=== PATIENT | female | born 1930 | race Caucasian/White ===

== ENCOUNTER → 2017-01-04 | Outpatient (CLI) | payer OTHER, BC ==
--- NOTE | 2017-01-04 14:36 | MAMMOGRAPHY REPORT ---
BILATERAL DIGITAL SCREENING MAMMOGRAM WITH CAD: 01/04/2017 CLINICAL HISTORY: Routine screening. Patient has no complaints. TECHNIQUE: Current study was also evaluated with a Computer Aided Detection (CAD) system. Bilatera l CC and MLO views were obtained. COMPARISON: Comparison is made to exams dated: 01/04/2016 mammogram, 12/26/2014 mammogram, 10/10/2013 mammogram, 10/09/2012 mammogram, 10/07/2011 mammogram, and 10/05/2009 mammogram - [facility]. BREAST COMPOSITION: There are scattered areas of fibroglandular density in both breasts. FINDINGS: No suspicious masses, calcifications, or areas of architectural distortion are noted in e ither breast. There has been no significant interval change compared to prior exams. Bilateral arabella gn-appearing calcifications are not significantly changed. IMPRESSION: ACR BI-RADS CATEGORY 2: BENIGN There is no mammographic evidence of malignancy. A 1 year screening mammogram is recommended. The p atient will receive written notification of the results. Approximately 10% of breast cancers are not detected with mammography. A negative mammographic repor t should not delay biopsy if a clinically suggestive mass is present. Rozina Kang M.D. /:01/04/2017 11:12:03 Orchid Grower: Belen Willingham, [facility] letter sent: Normal 1/2 BI-RADS Code: ACR BI-RADS Category 2: Benign
== END | disposition home or self-care (01) ==
LOC: C.MAMM 10:54
PROVIDERS: ATTEND Family Medicine
DX: Z12.31 Encounter for screening mammogram for malignant neoplasm of breast (principal)

== ENCOUNTER → 2018-01-08 | Outpatient (CLI) | payer OTHER, BC ==
--- NOTE | 2018-01-09 12:47 | MAMMOGRAPHY REPORT ---
BILATERAL DIGITAL SCREENING MAMMOGRAM TOMOSYNTHESIS WITH CAD: 01/08/2018 CLINICAL HISTORY: Routine screening. Patient has no complaints. TECHNIQUE: Breast tomosynthesis in addition to standard 2D mammography was performed. Current study was also evaluated with a Computer Aided Detection (CAD) system. COMPARISON: Comparison is made to exams dated: 01/04/2017 mammogram, 01/04/2016 mammogram, 12/26/2014 m ammogram, 10/10/2013 mammogram, 10/09/2012 mammogram, and 10/07/2011 mammogram - [facility]. BREAST COMPOSITION: There are scattered areas of fibroglandular density in both breasts. FINDINGS: There are minimal vascular calcifications in the breasts. No suspicious mass, architectura l distortion or cluster of microcalcifications is seen. IMPRESSION: ACR BI-RADS CATEGORY 1: NEGATIVE There is no mammographic evidence of malignancy. A 1 year screening mammogram is recommended. The pa tient will receive written notification of the results. Approximately 10% of breast cancers are not detected with mammography. A negative mammographic report should not delay biopsy if a clinically suggestive mass is present. Naty Peres M.D. ay/:01/08/2018 15:05:19 Scheduling Clerk: Aniyah MARKHAM(R)(M), [facility] letter sent: Normal 1/2 BI-RADS Code: ACR BI-RADS Category 1: Negative
== END | disposition home or self-care (01) ==
LOC: C.MAMM 10:29
PROVIDERS: ATTEND Family Medicine
DX: Z12.31 Encounter for screening mammogram for malignant neoplasm of breast (principal)

== ENCOUNTER 2020-05-03 12:30 | Inpatient (IN) ==
--- NOTE | 2020-05-03 12:51 | Emergency Department Note ---
Impression & Plan Fall, Confusion ED Provider Note Provider: Ivan Cabrera MD DATE OF SERVICE: 05/03/2020 CHIEF COMPLAINT: Fall, change in mental status HISTORY OF PRESENT ILLNESS: Patient is a 89-year-old female with a past medical history of COPD, PE, SVT, hyperlipidemia, pneumonia, restrictive lung disease presenting here today via ambulance after a fall. Patient evidently lives by her self and always is a little bit forgetful. According to EMS patient was found by her family today on the floor and seemed less aware and more confused than normal. Patient herself does not remember falling. EMS states they did find breakfast mates evidently was this morning. Patient denies pain at this time. Patient again does not remember and is unsure if she had loss of consciousness. She denies shortness of breath at this time or significant pain in the extremities. Denies nausea or abdominal discomfort. Patient not currently on anticoagulation per her report. Patient does not know what month or year it is at this time. Patient is quite pleasant and follows commands otherwise. She denies feeling drowsy. History of tachycardic in past. REVIEW OF SYSTEMS: A total of 10 review of systems was obtained and negative except as stated above in the HPI. PAST MEDICAL HISTORY: As noted above MEDICATIONS: Reviewed home medication list SOCIAL HISTORY: Lives at home by herself, retired, distant former smoker PHYSICAL EXAM: GENERAL: alert in no acute distress on stretcher Head: normocephalic and atraumatic EYES: No injection, discharge or icterus. PERRL NECK: Trachea midline. Supple. ENT: Mucous membranes pink and moist. LUNGS: Airway patent. No retractions. Breath sounds clear HEART: Regular tachycardic rate and rhythm. No chest wall tenderness ABDOMEN: Soft and non-tender, without guarding or rebound. Pelvis is stable SKIN: Acyanotic, warm, dry. EXTREMITIES: Without swelling or tenderness. Patient does have chronic lower extremity venous stasis changes. No significant edema. NEUROLOGICAL: No focal deficits. No aphasia. No facial droop or slurred speech. Patient does not know what year it is states is 1980 and states it is February when it is actually April. EK bpm normal sinus rhythm. No PVCs or PACs. No ST segment elevation or depression. CONTINUOUS CARDIAC MONITORING: was ordered and showed a heart rate of 102 bpm in sinus tachycardia Patient's hypertension was referred to the hospitalist GCS 14, mild confusion regarding events and current time HOSPITAL COURSE: 1236 Patient was first seen and H&P performed. 1320 Discussed with patient's daughter who is now at bedside. 1518 Patient reassessed and updated. Patient and daughter in agreement for obs ervation in hospital. Patient's laboratory studies and imaging reviewed. Differential includes Infection, dehydration, metabolic abnormality, hypo/hyperglycemia, electrolyte disturbance, anemia, hypoxia, cardiac sources, intracerebral event, toxicologic, neurologic, as well as other pathologies. IMPRESSION/MEDICAL DECISION MAKING: Patient presents after fall without recollection. CT encircles phonically without acute intracranial traumatic findings. Patient denies significant pain complaint at this time. Appears hemodynamically stable though somewhat hypertensive. Not hypoxic. Basic labs were obtained without evidence of leukocytosis or anemia. No significant lecture light abnormality or signs of renal dysfunction. Troponin is negative TSH within normal limits. I doubt acute ACS or PE at this time. I doubt dissection. Patient has no clinical evidence indicative of a hip fracture or significant injury to the extremities requiring additional imaging. Patient's daughter is present to and states that she seems more confused at this time. They have been having more caregivers come to the house to try to help with the patient still at this time does live on her own. Did have a recent positive urine culture in outpatient setting is completed 4 days of amoxicillin. UA pending here -- later negative for infection. Missed am metoprolol, this was given. Given that she lives at home and seems too confused at this time to go home by herself, plan for further observation here in hospital. DIAGNOSIS: Fall, confusion DISPOSITION: Hospitalist will evaluate Patient was agreeable with this plan. Past Med/Surg History Medical History (Updated 05/03/20 @ 16:17 by Dirk Kraft MD) Colon cancer Dependence on nocturnal oxygen therapy History of colon cancer History of tobacco abuse quit in 97, 50 pack year hx. HLD (hyperlipidemia) Hypothyroidism Osteoporosis Restrictive lung disease Surgical History H/O hernia repair x 2 History of cataract extraction History of left hemicolectomy 02/04/05 due to Colon CA History of tonsillectomy and adenoidectomy Family History (Updated 06/17/18 @ 18:24 by Leatha Johnson PA-C) Father , age 78 Lymphoma Mother , age 89 Myocardial infarction Coronary heart disease Stroke Dementia Brother , age 52 Suicide Grandfather Coronary heart disease Grandmother Coronary heart disease Social History (Updated 06/17/18 @ 18:26 by Leatha Johnson PA-C) Smoking Status: Former smoker Cigarettes Per Day: 50 pack yr history; Second Hand Exposure: No; Hx Alcohol Use: No Hx Substance Use: No Preferred Language: Bolivian Communication Ability: Effective Tractor Trailer Technician Required: No Beliefs That Will Affect Care: Voodoo Voodoo Beliefs: Restorationist Current Living Situation: Alone Current Living Situation Comment: Condo w/daytime caregivers current occupational status: retired 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 [employer] Feels Safe at Home: Yes Safety Concerns: Feels Safe At This Time Allergies Allergies Allergy/AdvReac Type Severity Reaction Status Date / Time pravastatin Allergy Unknown muscle Verified 05/03/20 13:53 aches zolpidem AdvReac Unknown psychotic Verified 05/03/20 13:53 response Home Meds Home Medications Medication Instructions Recorded Confirmed calcium carbonate-vitamin D3 2 tab PO DAILY 06/17/18 05/03/20 [Calcium 600 + D(3)] fluoxetine 40 mg PO DAILY 06/17/18 05/03/20 levothyroxine 100 mcg PO DAILY 06/17/18 05/03/20 minocycline 100 mg PO UD 06/17/18 05/03/20 metoprolol succinate 12.5 mg PO DAILY 11/20/18 05/03/20 amoxicillin 500 mg PO TID 05/03/20 05/03/20 bupropion HCl 150 mg PO DAILY 05/03/20 05/03/20 metronidazole 1 applic TOPICAL BID 05/03/20 05/03/20 Results & Data (ED) Vital Signs Vital Signs - 24 hr 05/03/20 12:24 05/03/20 12:39 05/03/20 12:46 Temperature 37.1 C Temperature Source Oral Pulse Rate 98 H 100 H Pulse Rate [Left] Pulse Rate from SpO2 Sensor 100 H Respiratory Rate 18 17 Respiratory Effort / Characteristics Non-Labored Spontaneous Respiratory Depth Normal Respiratory Pattern Regular Blood Pressure 163/99 H 163/99 H Blood Pressure [Right Arm] Blood Pressure Mean 120 134 Blood Pressure Mean [Right Arm] Blood Pressure Position Lying Blood Pressure Position [Right Arm] Pulse Oximetry 95 96 95 Oxygen Delivery Method Room Air Room Air Sepsis Recent Fever Within 48 Hours No Sepsis New/Unexplained Change in Mental Status Yes Sepsis Action Taken by Nursing No Action Required 05/03/20 13:00 05/03/20 13:23 05/03/20 13:24 Temperature Temperature Source Pulse Rate 102 H 98 H Pulse Rate [Left] 100 H Pulse Rate from SpO2 Sensor 102 H Respiratory Rate 19 20 21 Respiratory Effort / Characteristics Non-Labored Spontaneous Respiratory Depth Respiratory Pattern Blood Pressure 148/117 H 178/99 H Blood Pressure [Right Arm] 178/99 H Blood Pressure Mean 122 120 Blood Pressure Mean [Right Arm] 125 Blood Pressure Position Blood Pressure Position [Right Arm] Lying Pulse Oximetry 97 94 97 Oxygen Delivery Method Room Air Sepsis Recent Fever Within 48 Hours Sepsis New/Unexplained Change in Mental Status Sepsis Action Taken by Nursing 05/03/20 13:30 05/03/20 14:00 05/03/20 14:01 Temperature Temperature Source Pulse Rate 100 H 99 H 100 H Pulse Rate [Left] Pulse Rate from SpO2 Sensor Respiratory Rate 18 19 23 Respiratory Effort / Characteristics Respiratory Depth Respiratory Pattern Blood Pressure 178/109 H 142/128 H Blood Pressure [Right Arm] Blood Pressure Mean 118 136 Blood Pressure Mean [Right Arm] Blood Pressure Position Blood Pressure Position [Right Arm] Pulse Oximetry 95 Oxygen Delivery Method Sepsis Recent Fever Within 48 Hours Sepsis New/Unexplained Change in Mental Status Sepsis Action Taken by Nursing 05/03/20 14:30 05/03/20 14:45 05/03/20 15:00 Temperature Temperature Source Pulse Rate 102 H 101 H 102 H Pulse Rate [Left] Pulse Rate from SpO2 Sensor Respiratory Rate 25 H 23 20 Respiratory Effort / Characteristics Respiratory Depth Respiratory Pattern Blood Pressure 170/126 H 150/116 H Blood Pressure [Right Arm] Blood Pressure Mean 145 128 Blood Pressure Mean [Right Arm] Blood Pressure Position Blood Pressure Position [Right Arm] Pulse Oximetry 97 96 97 Oxygen Delivery Method Sepsis Recent Fever Within 48 Hours Sepsis New/Unexplained Change in Mental Status Sepsis Action Taken by Nursing 05/03/20 15:01 05/03/20 15:21 05/03/20 15:31 Temperature Temperature Source Pulse Rate 108 H 102 H 101 H Pulse Rate [Left] Pulse Rate from SpO2 Sensor Respiratory Rate 17 21 34 H Respiratory Effort / Characteristics Respiratory Depth Respiratory Pattern Blood Pressure 210/107 H 210/107 H 167/85 H Blood Pressure [Right Arm] Blood Pressure Mean 141 141 98 Blood Pressure Mean [Right Arm] Blood Pressure Position Blood Pressure Position [Right Arm] Pulse Oximetry 95 Oxygen Delivery Method Room Air Sepsis Recent Fever Within 48 Hours Sepsis New/Unexplained Change in Mental Status Sepsis Action Taken by Nursing Laboratory Data Result diagrams: 05/03/20 12:45 05/03/20 12:45 Lab Results 05/03/20 05/03/20 05/03/20 Range/Units 12:45 12:45 12:45 WBC 8.36 (4.8-10.8) K/uL RBC 5.23 (4.2-5.4) M/uL Hgb 14.6 (12.0-16.0) g/dL Hct 44.2 (37-47) % MCV 84.5 (80-100) fL MCH 27.9 (25-34) pg MCHC 33.0 (32-36) g/dL RDW Std Deviation 44.1 (36.4-46.3) fL RDW Coeff of [place] 14.1 (11.5-14.5) % Plt Count 219 (130-400) K/uL MPV 11.1 H (7.4-10.4) fL Immature Gran % (Auto) 0.7 % Neut % (Auto) 84.5 % Lymph % (Auto) 6.9 % Mchenry % (Auto) 5.9 % Eos % (Auto) 1.8 % Baso % (Auto) 0.2 % Neut # (Auto) 7.06 H (1.4-6.5) K/uL Lymph # (Auto) 0.58 L (1.2-3.4) K/uL Mchenry # (Auto) 0.49 (0.11-0.59) K/uL Eos # (Auto) 0.15 (0-0.5) K/uL Baso # (Auto) 0.02 (0-0.2) K/uL Immature Gran # (Auto) 0.06 H (0.00-0.02) K/uL PT 10.9 (9.0-12.0) Seconds INR 1.0 (0.9-1.1) Sodium 137 (136-145) mmol/L Potassium 3.9 (3.5-5.1) mmol/L Chloride 104 (98-107) mmol/L Carbon Dioxide 24 (21-32) mmol/L Anion Gap 9.0 (3-11) BUN 11 (7-18) mg/dl Creatinine 0.91 (0.6-1.2) mg/dl Est Cr Clr Drug Dosing 41.1 ml/min Est GFR ( Amer) 65.3 Est GFR (Non-Af Amer) 56.3 BUN/Creatinine Ratio 12.2 (10-20) Glucose 66 L (70-99) mg/dl Calcium 8.8 (8.5-10.1) mg/dl Magnesium 2.1 (1.8-2.4) mg/dl Total Bilirubin 0.7 (0.2-1) mg/dl AST 22 (15-37) U/L ALT 17 (12-78) U/L Alkaline Phosphatase 78 (45-117) U/L Total Creatine Kinase 73 (26-192) U/L Troponin I < 0.015 (0-0.045) ng/ml Total Protein 6.6 (6.4-8.2) gm/dl Albumin 3.4 (3.4-5.0) gm/dl Globulin 3.2 (2.5-4.0) gm/dl Albumin/Globulin Ratio 1.1 (0.9-2) TSH 2.470 (0.300-4.500) uIu/ml Administered Medications Dextrose/Sodium Chloride (D5w And 1/2nss) 1,000 mls @ 80 mls/hr IV .[id number] [facility] Stop: 05/05/20 07:29 Last Admin: 05/03/20 18:15 Dose: 80 mls/hr Documented by: [id number] Metoprolol Succinate (Metoprolol Succ 25mg Ext Rel Tab) 25 mg PO DAILY [facility] Stop: 06/02/20 18:29 Last Admin: 05/03/20 18:15 Dose: 25 mg Documented by: [id number] Discontinued Medications Clonidine HCl (Clonidine Hcl 0.1 Mg Tab) 0.1 mg PO NOW ONE Stop: 05/03/20 15:52 Last Admin: 05/03/20 18:05 Dose: Not Given Documented by: [id number] Metoprolol Succinate (Metoprolol Succ 50mg Ext Rel Tab) 12.5 mg PO NOW STA Stop: 05/03/20 15:26 Last Admin: 05/03/20 15:56 Dose: 12.5 mg Documented by: [id number] Metoprolol Succinate (Metoprolol Succ 25mg Ext Rel Tab) 25 mg PO NOW STA Stop: 05/03/20 16:03 Last Admin: 05/03/20 18:10 Dose: Not Given Documented by: [id number] Nitroglycerin (Nitroglycerin 2% Ointment 30gm Tube) 0.5 inch EXT NOW STA Stop: 05/03/20 15:54 Last Admin: 05/03/20 18:09 Dose: Not Given Documented by: [id number] Discharge Plan Visit Data Chief Complaint: Fall Stated Complaint: Falls, Increase in altered mental status ED Provider: Ivan Cabrera Discharge Problem: Fall, Confusion Patient Disposition: Admitted As Inpatient Discharge Instructions Interventions: ED Discharge Assessment Last Done: 05/03/20 17:25 Discharge Problem: Fall Qualifiers: Encounter type: initial encounter Qualified Code(s): W19.XXXA - Unspecified fall, initial encounter
[2020-05-03 13:03] LABS: Basophils # (auto) 0.02 K/uL (0-0.2); Basophils % (auto) 0.2 %; Eosinophils # (auto) 0.15 K/uL (0-0.5); Eosinophils % (auto) 1.8 %; Hematocrit (blood only) 44.2 % (37-47); Hemoglobin 14.6 g/dL (12.0-16.0); Immature Granulocytes # (auto) 0.06 K/uL (0.00-0.02); Immature Granulocytes % (auto) 0.7 %; Lymphocytes # (auto) 0.58 K/uL (1.2-3.4); Lymphocytes % (auto) 6.9 %; Mean Corpuscular Hemoglobin 27.9 pg (25-34); Mean Corpuscular Volume 84.5 fL (80-100); Mean Platelet Volume 11.1 fL (7.4-10.4); Monocytes # (auto) 0.49 K/uL (0.11-0.59); Monocytes % (auto) 5.9 %; Neutrophils # (auto) 7.06 K/uL (1.4-6.5); Neutrophils % (auto) 84.5 %; Platelet Count 219 K/uL (130-400); RDW Coefficient of Variation 14.1 % (11.5-14.5); RDW Standard Deviation 44.1 fL (36.4-46.3); Red Blood Count 5.23 M/uL (4.2-5.4); White Blood Count 8.36 K/uL (4.8-10.8)
[2020-05-03 13:11] LABS: Prothrombin Time 10.9 Seconds (9.0-12.0)
[2020-05-03 13:24] LABS: Alanine Aminotransferase 17 U/L (12-78); Albumin Level 3.4 gm/dl (3.4-5.0); Aspartate Aminotransferase 22 U/L (15-37); BUN Creatinine Ratio 12.2 (10-20); Blood Urea Nitrogen 11 mg/dl (7-18); Calcium 8.8 mg/dl (8.5-10.1); Carbon Dioxide 24 mmol/L (21-32); Chloride 104 mmol/L (98-107); Creatinine Clr Calc Pharmacy 41.1 ml/min; Est GFR (African American) 65.3; Est GFR (Non-African American) 56.3; Glucose 66 mg/dl (70-99); Magnesium 2.1 mg/dl (1.8-2.4); Potassium 3.9 mmol/L (3.5-5.1); Sodium 137 mmol/L (136-145)
--- NOTE | 2020-05-03 13:24 | CT Scan Report ---
CT OF THE HEAD WITHOUT CONTRAST CLINICAL HISTORY: fall, ams COMPARISON STUDY: Head CT June 17, 2018. TECHNIQUE: Helical axial images of the head were obtained without IV contrast. Automated exposure con trol was utilized for the study. A dose lowering technique was utilized adhering to the principles o f ALARA. FINDINGS: No acute intracranial hemorrhage, midline shift or mass effect is present. The ventricular system is unremarkable. The basilar cisterns are patent. No extra-axial collections are present. Exte nsive white matter hypodensity suggests small vessel disease. There are no findings to suggest acute dural sinus thrombosis or acute territorial infarct. No significant calvarial abnormalities are prese nt. Visualized portions of the sinuses and mastoid air cells are clear. Suspected old right nasal bon e fracture is partially imaged. IMPRESSION: 1. No acute intracranial findings. 2. No calvarial fracture. ACT 112: Negative or not required by law. Electronically signed by: Yevgeniy Murillo M.D. 05/03/2020 1:23 PM
--- NOTE | 2020-05-03 13:29 | CT Scan Report ---
CT OF THE CERVICAL SPINE WITHOUT CONTRAST CLINICAL HISTORY: fall COMPARISON STUDY: Cervical spine CT June 17, 2018. TECHNIQUE: Helical axial images of the cervical spine were obtained without IV contrast. Sagittal a nd coronal reconstructions were viewed. Automated exposure control was utilized for the study. A do se lowering technique was utilized adhering to the principles of ALARA. FINDINGS: Reversal of the normal cervical lordosis is unchanged since prior CT of June 17, 2018. Ve rtebral body heights are maintained. No acute cervical spine fracture or subluxation is present. Ther e is no prevertebral edema. Facet joints are intact. Severe facet arthrosis is noted. There is moder ate to severe multilevel disc space narrowing with osteophytosis within the cervical spine. IMPRESSION: No acute cervical spine fracture or subluxation. ACT 112: Negative or not required by law. Electronically signed by: Yevgeniy Murillo M.D. 05/03/2020 1:28 PM
[2020-05-03 13:30] LABS: Albumin Globulin Ratio 1.1 (0.9-2); Alkaline Phosphatase 78 U/L (45-117); Bilirubin,Total 0.7 mg/dl (0.2-1); Creatine Kinase 73 U/L (26-192); Globulin 3.2 gm/dl (2.5-4.0); Total Protein 6.6 gm/dl (6.4-8.2); Troponin I < 0.015 ng/ml (0-0.045)
--- NOTE | 2020-05-03 14:02 | XRay Report ---
XR chest 1V portable CLINICAL HISTORY: fall COMPARISON STUDY: Chest radiograph June 25, 2018. Chest CT September 26, 2018. FINDINGS: There is no pneumothorax or pleural effusion. There is no evidence for pulmonary edema. Not e is made of bibasilar opacities. Mild cardiomegaly is unchanged. I IMPRESSION: 1. No pneumothorax. 2. Bibasilar opacities which favor atelectasis although an infectious process could appear similar. 3. Mild cardiomegaly without evidence for pulmonary edema. ACT 112: Negative or not required by law. Electronically signed by: Yevgeniy Murillo M.D. 05/03/2020 2:01 PM
[2020-05-03] MEDS ORDERED: METOPROLOL SUCC 50MG EXT REL TAB PO STA (15:25)
[2020-05-03] MEDS ORDERED: cloNIDine HCL 0.1 MG TAB PO ONE (15:51)
[2020-05-03] MEDS ORDERED: NITROGLYCERIN 2% OINTMENT 30GM TUBE EXT STA (15:53)
[2020-05-03] MEDS ORDERED: METOPROLOL SUCC 25MG EXT REL TAB PO STA (16:02)
--- NOTE | 2020-05-03 16:21 | History & Physical Report ---
Date of Service May 03, 2020 Assessment & Plan (1) Acute confusion: Has been diagnosed with cognitive impairment/dementia since February of this year Noted to be acutely confused since this morning Has been getting amoxicillin for recent UTI Confusion could be secondary to ongoing dementia/dehydration with fall/infection likely partially treated UTI Will observe (2) Dementia: As above (3) Fall: She has been falling recently without any significant injury Was found on the floor at home today No significant injury No known loss of consciousness We will get PT and OT evaluation for possible placement (4) Weakness: Has generalized weakness (5) Paroxysmal SVT (supraventricular tachycardia): History of PSV Heart rate noted to be more than 100 Will increase metoprolol to 25 mg twice daily History of DVT and pulmonary embolism She is not taking any anticoagulation most likely due to fall risk (6) Right ventricular systolic dysfunction: Does not seems to be volume overload We will give cautious amount of IV fluid (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 (8) Hypothyroidism: Continue replacement (9) Hypertension: Noted to be very high on presentation Continue anxiety and did not take her medications this morning Will give metoprolol and Nitropaste May need to add other medications to control blood pressure (10) UTI (urinary tract infection): Recently diagnosed UTI as an outpatient has been getting amoxicillin Will send UA for culture Start ceftriaxone DVT prophylaxis Subcu heparin CODE STATUS DNR/DNI History of Present Illness Chief Complaint: Was found on the floor very confused Primary Care Provider: Randell Guzman DO She is an 89-year-old female with significant past medical history including SVT with history of DVT and pulmonary embolism, hypertension, COPD with emphysema, right ventricular dysfunction, restrictive lung disease, recently diagnosed cognitive impairment and including other medical conditions as mentioned below, apparently was found on the floor by the family members this afternoon. The history was taken from the patient and the daughter. The patient is unaware about what happened to her and how did she fall. Apparently she has been falling almost every month and recently she was evaluated for cognitive impairment and was noted to have dementia. She was confused and was not been able to give any history but she was not having any distress during conversation. No history of fever and/or chills, no chest pain, palpitation or shortness of breath, no abdominal pain, nausea and or vomiting, she is incontinent of urine and was recently diagnosed UTI as an outpatient and has has been receiving amoxicillin which she has not finished yet. She denies any significant arthritis involving any joints. Does not have any acute headache, speech problem or any numbness or tingling involving any of the extremities. She lives alone and get adequate home health support. She was noted to be hypertensive in the emergency room without any significant lab abnormalities and her UA is still pending. She was admitted to the hospital for continuation of care. Allergies Allergy/AdvReac Type Severity Reaction Status Date / Time pravastatin Allergy Unknown muscle Verified 05/03/20 13:53 aches zolpidem AdvReac Unknown psychotic Verified 05/03/20 13:53 response Home Medications Home Medications Medication Instructions Recorded Confirmed Type calcium carbonate-vitamin D3 2 tab PO DAILY 06/17/18 05/03/20 History [Calcium 600 + D(3)] fluoxetine 40 mg PO DAILY 06/17/18 05/03/20 History levothyroxine 100 mcg PO DAILY 06/17/18 05/03/20 History metronidazole [Metrogel] 1 applic TOPICAL DAILY 06/17/18 05/03/20 History minocycline 100 mg PO UD 06/17/18 05/03/20 History metoprolol succinate 12.5 mg PO DAILY 11/20/18 05/03/20 History amoxicillin 500 mg PO TID 05/03/20 05/03/20 History bupropion HCl 150 mg PO DAILY 05/03/20 05/03/20 History Past Med/Surg History Medical History (Updated 05/03/20 @ 16:17 by Dirk Kraft MD) Colon cancer Dependence on nocturnal oxygen therapy History of colon cancer History of tobacco abuse quit in 97, 50 pack year hx. HLD (hyperlipidemia) Hypothyroidism Osteoporosis Restrictive lung disease Surgical History H/O hernia repair x 2 History of cataract extraction History of left hemicolectomy 02/04/05 due to Colon CA History of tonsillectomy and adenoidectomy Family History (Updated 06/17/18 @ 18:24 by Leatha Johnson PA-C) Father , age 78 Lymphoma Mother , age 89 Myocardial infarction Coronary heart disease Stroke Dementia Brother , age 52 Suicide Grandfather Coronary heart disease Grandmother Coronary heart disease Social History (Updated 06/17/18 @ 18:26 by Leatha Johnson PA-C) Smoking Status: Unknown if ever smoked Cigarettes Per Day: 50 pack yr history; Second Hand Exposure: No; Hx Alcohol Use: No Hx Substance Use: No Preferred Language: Japanese Communication Ability: Effective Adjunct Communications Faculty Member Required: No Beliefs That Will Affect Care: None Current Living Situation: Alone Current Living Situation Comment: Is independent, still drives, uses cane to ambulate current occupational status: retired 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 [employer] Feels Safe at Home: Yes Review of Systems Review of Systems: All systems reviewed & are unremarkable except as noted in HPI & below Physical Exam Physical Exam: Lying in bed comfortably Constitutional: + thin; no acute distress and not ill appearing Eyes: PERRL, conjunctivae normal, anicteric sclerae ENMT: external ear and nose normal, oropharynx normal Neck: trachea midline, no thyromegaly Respiratory: normal respiratory effort; no respiratory distress Auscultation: lungs clear to auscultation bilaterally and + crackles (Minimal bibasilar crackles) Cardiovascular: Rate/Rhythm: regular rate and regular rhythm Heart Sounds: + murmur (Ejection systolic murmur 1/6 with precordial) Extremities: no edema Gastrointestinal (Abdomen): Inspection/Auscultation: abdomen normal to inspection and normal bowel sounds; abdomen not distended Percussion/Palpation: abdomen soft; abdomen nontender Musculoskeletal: No acute arthritis involving any joints Skin: Chronic skin discoloration in the lower extremities. Multiple bruising involving upper extremities mostly on the left hand Neurologic: moves all extremities; no focal motor deficits Alert and awake but totally confused. Generally weak Psychiatric: Insight: + poor insight Results & Data Results & Data ([facility]) Vital Signs (Past 12 Hours) Vital Signs Temp Pulse Pulse Resp BP BP Pulse Ox 05/03/20 15:21 102 H 21 210/107 H 95 05/03/20 15:00 102 H 20 97 05/03/20 14:45 101 H 23 150/116 H 96 05/03/20 14:30 102 H 25 H 170/126 H 97 05/03/20 14:01 100 H 23 142/128 H 95 05/03/20 14:00 99 H 19 05/03/20 13:30 100 H 18 178/109 H 05/03/20 13:24 98 H 21 178/99 H 97 05/03/20 13:23 100 H 20 178/99 H 94 05/03/20 13:00 102 H 19 148/117 H 97 05/03/20 12:46 95 05/03/20 12:39 100 H 17 163/99 H 96 05/03/20 12:24 37.1 C 98 H 18 163/99 H 95 Laboratory Results Short CBC 05/03/20 Range/Units 12:45 WBC 8.36 (4.8-10.8) K/uL Hgb 14.6 (12.0-16.0) g/dL Hct 44.2 (37-47) % Plt Count 219 (130-400) K/uL BMP 05/03/20 12:45 Sodium 137 Potassium 3.9 Chloride 104 Carbon Dioxide 24 BUN 11 Creatinine 0.91 Glucose 66 L Calcium 8.8 Cardiac Enzymes 05/03/20 Range/Units 12:45 Total Creatine Kinase 73 (26-192) U/L Troponin I < 0.015 (0-0.045) ng/ml Liver Function 05/03/20 Range/Units 12:45 Total Bilirubin 0.7 (0.2-1) mg/dl AST 22 (15-37) U/L ALT 17 (12-78) U/L Alkaline Phosphatase 78 (45-117) U/L Albumin 3.4 (3.4-5.0) gm/dl Medications Administered Current Inpatient Medications Heparin Sodium (Porcine) (Heparin Sod 5,000 Unit/0.5 Ml Vial) 5,000 units SQ Q12 DENY Stop: 06/02/20 20:59 Dextrose/Sodium Chloride (D5w And 1/2nss) 1,000 mls @ 80 mls/hr IV .[id number] DENY Stop: 05/05/20 05:29 Ceftriaxone Sodium 1,000 mg/ (Dextrose) 50 mls @ 100 mls/hr IV Q24H DENY; Protocol Stop: 05/08/20 15:59 Code Status & VTE Plan VTE Prophylaxis Plan VTE Prophylaxis will be ordered: Yes (1) Fall Encounter type: initial encounter Qualified Code(s): W19.XXXA - Unspecified fall, initial encounter
[2020-05-03 16:24] LABS: Appearance Urine Clear (Clear); Bacteria Urine Automated Negative (Negative); Bilirubin Urine Negative (Negative); Blood Urine Negative (Negative); Color Urine Yellow; Glucose Urine UA Negative (Negative); Ketones Urine 3+ (Negative); Leukocyte Esterase Urine Negative (Negative); Nitrite Urine Negative (Negative); Protein Urine Trace (Negative); RBC Urine Automated 0-4 /hpf (0-4); Urobilinogen Urine Negative (Negative)
[2020-05-03] MEDS: D5W AND 1/2NSS 1,000 ML IV SCH (18:15)
[2020-05-03] MEDS: METOPROLOL SUCC 25MG EXT REL TAB PO SCH (18:15)
[2020-05-03] MEDS: cefTRIAXone SODIUM 1,000 MG in DEXTROSE 5% 50 ML IV SCH (19:22)
[2020-05-03] MEDS: HEPARIN SOD 5,000 UNIT/0.5 ML VIAL SQ SCH (20:14)
[2020-05-04] MEDS: D5W AND 1/2NSS 1,000 ML IV SCH (05:49)
[2020-05-04] MEDS: LEVOTHYROXINE SODIUM 100 MCG TABLET PO SCH (06:10)
[2020-05-04 08:08] LABS: Estimated Average Glucose 100 mg/dl; Hemoglobin A1C 5.1 % (4.5-5.6)
[2020-05-04] MEDS: FLUOXETINE HCL 20 MG CAP PO SCH (08:44)
[2020-05-04] MEDS: BuPROPion XL 150 MG TABCR PO SCH (08:44)
[2020-05-04] MEDS: METOPROLOL SUCC 25MG EXT REL TAB PO SCH (08:44)
[2020-05-04] MEDS: metroNIDAZOLE 0.75% TOPICAL GEL 45 GM TUBE TOP SCH ×2 (08:45→20:33)
[2020-05-04] MEDS: CALCIUM 600MG + VIT D 400 IU TAB PO SCH (08:45)
[2020-05-04] MEDS: HEPARIN SOD 5,000 UNIT/0.5 ML VIAL SQ SCH ×2 (08:46→20:34)
--- NOTE | 2020-05-04 10:05 | Electrocardiogram Report ---
Test Reason : Blood Pressure : / mmHG Vent. Rate : 100 BPM Atrial Rate : 100 BPM P-R Int : 156 ms QRS Dur : 074 ms QT Int : 380 ms P-R-T Axes : 030 -14 020 degrees QTc Int : 490 ms Normal sinus rhythm Possible Old Inferior infarct (cited on or before 2017) Abnormal ECG When compared with ECG of 19-JUN-2018 06:37, Premature ventricular complexes are no longer Present Confirmed by Dakota Houston ([id number]) on 05/04/2020 10:04:59 AM Referred By: REFERRED SELF Confirmed By:Dakota Houston
--- NOTE | 2020-05-04 16:21 | Hospitalist Progress Note ---
Date of Service May 04, 2020 Assessment & Plan (1) Acute confusion: Has been diagnosed with cognitive impairment/dementia since February of this year Noted to be acutely confused since this morning Has been getting amoxicillin for recent UTI Confusion could be secondary to ongoing dementia/dehydration with fall/infection likely partially treated UTI Remains pleasantly confused without any agitation and/or behavioral issue (2) Dementia: As above (3) Fall: She has been falling recently without any significant injury Was found on the floor at home today No significant injury No known loss of consciousness We will get PT and OT evaluation for possible placement Likely [facility] when accepted (4) Weakness: Has generalized weakness (5) Paroxysmal SVT (supraventricular tachycardia): History of PSV Heart rate noted to be more than 100 Will increase metoprolol to 25 mg twice daily History of DVT and pulmonary embolism She is not taking any anticoagulation most likely due to fall risk (6) Right ventricular systolic dysfunction: Does not seems to be volume overload We will give cautious amount of IV fluid (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 (8) Hypothyroidism: Continue replacement (9) Hypertension: Noted to be very high on presentation Continue anxiety and did not take her medications this morning Will give metoprolol and Nitropaste May need to add other medications to control blood pressure (10) UTI (urinary tract infection): Recently diagnosed UTI as an outpatient has been getting amoxicillin Will send UA for culture-UA is not showing any infection and there was not sent for culture Start ceftriaxone will discontinue ciprofloxacin on discharge DVT prophylaxis Subcu heparin CODE STATUS DNR/DNI Admission and Anticipated Discharge Date Admission Date: May 03, 2020 Subjective 05/04/2020 The patient was seen and examined in medical telemetry unit in presence of the daughter She remains pleasantly confused but otherwise no acute distress She has been sleeping a lot Review of Systems Review of Systems: All systems reviewed and are unremarkable except as noted below Neurologic: + generalized weakness Psychiatric: + confusion Physical Exam Physical Exam: Lying in bed comfortably Constitutional: + thin; no acute distress and not ill appearing Eyes: PERRL, conjunctivae normal, anicteric sclerae ENMT: external ear and nose normal, oropharynx normal Neck: trachea midline, no thyromegaly Respiratory: normal respiratory effort; no respiratory distress Auscultation: lungs clear to auscultation bilaterally and + crackles (Minimal bibasilar crackles) Cardiovascular: Rate/Rhythm: regular rate and regular rhythm Heart Sounds: + murmur (Ejection systolic murmur 1/6 with precordial) Extremities: no edema Gastrointestinal (Abdomen): Inspection/Auscultation: abdomen normal to inspection and normal bowel sounds; abdomen not distended Percussion/Palpation: abdomen soft; abdomen nontender Musculoskeletal: No acute arthritis involving any joints Neurologic: moves all extremities; no focal motor deficits Psychiatric: Insight: + poor insight Results & Data Results & Data ([facility]) Vital Signs (Past 12 Hours) Vital Signs Temp Pulse Pulse Resp BP BP Pulse Ox 05/04/20 15:15 37 C 72 20 155/80 H 95 05/04/20 12:01 37.0 C 70 20 161/79 H 95 05/04/20 07:55 36.4 C L 83 18 155/83 H 92 05/04/20 07:31 71 Laboratory Results Urine 05/03/20 Range/Units 16:09 Urine Color Yellow Urine Appearance Clear (Clear) Urine pH 5.0 (4.5-7.5) Ur Specific [place] 1.020 (1.000-1.030) Urine Protein Trace H (Negative) Urine Glucose (UA) Negative (Negative) Medications Administered Current Inpatient Medications Bupropion HCl (Bupropion Xl 150 Mg Tabcr) 150 mg PO DAILY [facility] Stop: 06/03/20 08:59 Last Admin: 05/04/20 08:44 Dose: 150 mg Documented by: Fluoxetine HCl (Fluoxetine Hcl 20 Mg Cap) 40 mg PO DAILY DENY Stop: 06/03/20 08:59 Last Admin: 05/04/20 08:44 Dose: 40 mg Documented by: Heparin Sodium (Porcine) (Heparin Sod 5,000 Unit/0.5 Ml Vial) 5,000 units SQ Q12 DENY Stop: 06/02/20 20:59 Last Admin: 05/04/20 08:46 Dose: 5,000 units Documented by: Dextrose/Sodium Chloride (D5w And 1/2nss) 1,000 mls @ 80 mls/hr IV .[id number] [facility] Stop: 05/05/20 07:29 Last Admin: 05/04/20 05:49 Dose: 80 mls/hr Documented by: Ceftriaxone Sodium 1,000 mg/ (Dextrose) 50 mls @ 100 mls/hr IV Q24H DENY; Protocol Stop: 05/08/20 17:59 Last Infusion: 05/03/20 20:14 Dose: Infused Documented by: Levothyroxine Sodium (Levothyroxine Sodium 100 Mcg Tablet) 100 mcg PO DAILYBB [facility] Stop: 06/03/20 06:29 Last Admin: 05/04/20 06:10 Dose: 100 mcg Documented by: Metoprolol Succinate (Metoprolol Succ 25mg Ext Rel Tab) 25 mg PO DAILY DENY Stop: 06/02/20 18:29 Last Admin: 05/04/20 08:44 Dose: 25 mg Documented by: Metronidazole (Metronidazole 0.75% Topical Gel 45 Gm Tube) 1 appln TOP BID DENY Stop: 05/14/20 08:59 Last Admin: 05/04/20 08:45 Dose: 1 appln Documented by: Multivitamins/Minerals (Calcium 600mg + Vit D 400 Iu Tab) 2 tab PO DAILY DENY Stop: 06/03/20 08:59 Last Admin: 05/04/20 08:45 Dose: 2 tab Documented by: (1) Fall Encounter type: initial encounter Qualified Code(s): W19.XXXA - Unspecified fall, initial encounter
[2020-05-04] MEDS: cefTRIAXone SODIUM 1,000 MG in DEXTROSE 5% 50 ML IV SCH (18:04)
[2020-05-04] MEDS ORDERED: Nursing to Pharmacy Communication SCH (23:45)
[2020-05-05] MEDS: D5W AND 1/2NSS 1,000 ML IV SCH (01:24)
[2020-05-05] MEDS: LEVOTHYROXINE SODIUM 100 MCG TABLET PO SCH (05:31)
[2020-05-05 07:46] LABS: Basophils # (auto) 0.03 K/uL (0-0.2); Basophils % (auto) 0.4 %; Eosinophils # (auto) 0.13 K/uL (0-0.5); Eosinophils % (auto) 1.5 %; Hematocrit (blood only) 44.3 % (37-47); Hemoglobin 14.6 g/dL (12.0-16.0); Immature Granulocytes # (auto) 0.04 K/uL (0.00-0.02); Immature Granulocytes % (auto) 0.5 %; Lymphocytes # (auto) 0.56 K/uL (1.2-3.4); Lymphocytes % (auto) 6.6 %; Mean Corpuscular Hemoglobin 27.5 pg (25-34); Mean Corpuscular Volume 83.6 fL (80-100); Mean Platelet Volume 11.4 fL (7.4-10.4); Monocytes # (auto) 0.78 K/uL (0.11-0.59); Monocytes % (auto) 9.2 %; Neutrophils # (auto) 6.92 K/uL (1.4-6.5); Neutrophils % (auto) 81.8 %; Platelet Count 220 K/uL (130-400); RDW Coefficient of Variation 14.2 % (11.5-14.5); RDW Standard Deviation 43.6 fL (36.4-46.3); White Blood Count 8.46 K/uL (4.8-10.8)
[2020-05-05] MEDS: FLUOXETINE HCL 20 MG CAP PO SCH (07:57)
[2020-05-05] MEDS: BuPROPion XL 150 MG TABCR PO SCH (07:58)
[2020-05-05] MEDS: HEPARIN SOD 5,000 UNIT/0.5 ML VIAL SQ SCH ×2 (07:58→20:26)
[2020-05-05] MEDS: CALCIUM 600MG + VIT D 400 IU TAB PO SCH (07:59)
[2020-05-05] MEDS: metroNIDAZOLE 0.75% TOPICAL GEL 45 GM TUBE TOP SCH ×2 (07:59→20:26)
[2020-05-05] MEDS: METOPROLOL SUCC 25MG EXT REL TAB PO SCH (07:59)
[2020-05-05 08:10] LABS: BUN Creatinine Ratio 8.9 (10-20); Calcium 8.4 mg/dl (8.5-10.1); Creatinine Clr Calc Pharmacy 36.1 ml/min; Est GFR (African American) 63.6; Est GFR (Non-African American) 54.9; Magnesium 2.1 mg/dl (1.8-2.4); Phosphorus 2.3 mg/dl (2.5-4.9); Potassium 3.6 mmol/L (3.5-5.1)
--- NOTE | 2020-05-05 14:42 | Hospitalist Progress Note ---
Date of Service May 05, 2020 Assessment & Plan (1) Acute confusion: Has been diagnosed with cognitive impairment/dementia since February of this year Noted to be acutely confused since this morning Has been getting amoxicillin for recent UTI Confusion could be secondary to ongoing dementia/dehydration with fall/infection likely partially treated UTI Remains pleasantly confused without any agitation and/or behavioral issue Repeat UA did not show any evidence of infection-we will discontinue intravenous antibiotics Remains pleasantly confused Depression [facility] has been consulted for any adjustment of medication Palliative care evaluation Discussed with the POA The patient has multiple stable comorbid conditions with acute confusion and dementia We will get a palliative care evaluation for possible transition to hospice care in a facility (2) Dementia: As above (3) Fall: She has been falling recently without any significant injury Was found on the floor at home today No significant injury No known loss of consciousness We will get PT and OT evaluation for possible placement Likely [facility] when accepted (4) Weakness: Has generalized weakness (5) Paroxysmal SVT (supraventricular tachycardia): History of PSV Heart rate noted to be more than 100 Will increase metoprolol to 25 mg twice daily Heart rate and blood pressure remained stable History of DVT and pulmonary embolism She is not taking any anticoagulation most likely due to fall risk (6) Right ventricular systolic dysfunction: Does not seems to be volume overload We will give cautious amount of IV fluid No signs of fluid overload (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 (8) Hypothyroidism: Continue replacement (9) Hypertension: Noted to be very high on presentation Continue anxiety and did not take her medications this morning Will give metoprolol and Nitropaste May need to add other medications to control blood pressure (10) UTI (urinary tract infection): Recently diagnosed UTI as an outpatient has been getting amoxicillin Will send UA for culture-UA is not showing any infection and there was not sent for culture Will discontinue ceftriaxone after tomorrow dose DVT prophylaxis Subcu heparin CODE STATUS DNR/DNI Admission and Anticipated Discharge Date Admission Date: May 03, 2020 Subjective 05/04/2020 The patient was seen and examined in medical telemetry unit in presence of the daughter She remains pleasantly confused but otherwise no acute distress She has been sleeping a lot 05/05/2020 The patient was seen and examined in medical telemetry unit She has been in pleasantly confused Does not have any other distress Review of Systems Review of Systems: All systems reviewed and are unremarkable except as noted below Neurologic: + generalized weakness Psychiatric: + confusion Physical Exam Physical Exam: Sitting on a chair without any acute distress Constitutional: + thin; no acute distress and not ill appearing Eyes: PERRL, conjunctivae normal, anicteric sclerae ENMT: external ear and nose normal, oropharynx normal Neck: trachea midline, no thyromegaly Respiratory: normal respiratory effort; no respiratory distress Auscultation: lungs clear to auscultation bilaterally and + crackles (Minimal bibasilar crackles) Cardiovascular: Rate/Rhythm: regular rate and regular rhythm Heart Sounds: + murmur (Ejection systolic murmur 1/6 with precordial) Extremities: no edema Gastrointestinal (Abdomen): Inspection/Auscultation: abdomen normal to inspection and normal bowel sounds; abdomen not distended Percussion/Palpation: abdomen soft; abdomen nontender Musculoskeletal: No acute arthritis involving any joints Neurologic: moves all extremities; no focal motor deficits Pleasantly confused. Generally weak Psychiatric: Insight: + poor insight Lymphatic: no cervical or axillary lymphadenopathy Results & Data Results & Data ([facility]) Vital Signs (Past 12 Hours) Vital Signs Temp Pulse Pulse Resp BP BP Pulse Ox 05/05/20 12:00 37.0 C 79 18 115/73 95 05/05/20 07:00 36.5 C 78 18 169/85 H 97 05/05/20 04:23 36.5 C 75 19 153/78 H 97 Laboratory Results Short CBC 05/05/20 Range/Units 06:58 WBC 8.46 (4.8-10.8) K/uL Hgb 14.6 (12.0-16.0) g/dL Hct 44.3 (37-47) % Plt Count 220 (130-400) K/uL BMP 05/05/20 06:58 Sodium 136 Potassium 3.6 Chloride 105 Carbon Dioxide 25 BUN 8 Creatinine 0.93 Glucose 104 H Calcium 8.4 L Medications Administered Current Inpatient Medications Bupropion HCl (Bupropion Xl 150 Mg Tabcr) 150 mg PO DAILY DENY Stop: 06/03/20 08:59 Last Admin: 05/05/20 07:58 Dose: 150 mg Documented by: Fluoxetine HCl (Fluoxetine Hcl 20 Mg Cap) 40 mg PO DAILY DENY Stop: 06/03/20 08:59 Last Admin: 05/05/20 07:57 Dose: 40 mg Documented by: Heparin Sodium (Porcine) (Heparin Sod 5,000 Unit/0.5 Ml Vial) 5,000 units SQ Q12 DENY Stop: 06/02/20 20:59 Last Admin: 05/05/20 07:58 Dose: 5,000 units Documented by: Ceftriaxone Sodium 1,000 mg/ (Dextrose) 50 mls @ 100 mls/hr IV Q24H [facility]; Protocol Stop: 05/08/20 17:59 Last Infusion: 05/04/20 18:40 Dose: Infused Documented by: Levothyroxine Sodium (Levothyroxine Sodium 100 Mcg Tablet) 100 mcg PO DAILYBB [facility] Stop: 06/03/20 06:29 Last Admin: 05/05/20 05:31 Dose: 100 mcg Documented by: Metoprolol Succinate (Metoprolol Succ 25mg Ext Rel Tab) 25 mg PO DAILY DENY Stop: 06/02/20 18:29 Last Admin: 05/05/20 07:59 Dose: 25 mg Documented by: Metronidazole (Metronidazole 0.75% Topical Gel 45 Gm Tube) 1 appln TOP BID DENY Stop: 05/14/20 08:59 Last Admin: 05/05/20 07:59 Dose: 1 appln Documented by: Multivitamins/Minerals (Calcium 600mg + Vit D 400 Iu Tab) 2 tab PO DAILY [facility] Stop: 06/03/20 08:59 Last Admin: 05/05/20 07:59 Dose: 2 tab Documented by: (1) Fall Encounter type: initial encounter Qualified Code(s): W19.XXXA - Unspecified fall, initial encounter
[2020-05-06] MEDS: LEVOTHYROXINE SODIUM 100 MCG TABLET PO SCH (05:49)
[2020-05-06 07:11] LABS: Hematocrit (blood only) 41.9 % (37-47); Hemoglobin 13.9 g/dL (12.0-16.0); Mean Corpuscular Hemoglobin 27.9 pg (25-34); Mean Corpuscular Hgb Conc 33.2 g/dL (32-36); Mean Corpuscular Volume 84.1 fL (80-100); Platelet Count 204 K/uL (130-400); RDW Coefficient of Variation 14.4 % (11.5-14.5); RDW Standard Deviation 44.3 fL (36.4-46.3); Red Blood Count 4.98 M/uL (4.2-5.4); White Blood Count 7.26 K/uL (4.8-10.8)
[2020-05-06] MEDS: HEPARIN SOD 5,000 UNIT/0.5 ML VIAL SQ SCH ×2 (08:51→20:05)
[2020-05-06] MEDS: CALCIUM 600MG + VIT D 400 IU TAB PO SCH (08:51)
[2020-05-06] MEDS: METOPROLOL SUCC 25MG EXT REL TAB PO SCH (08:51)
--- NOTE | 2020-05-06 10:11 | Psychiatric Consultation ---
Date of Consultation May 06, 2020 Impression / Recommendations Impression Dr. Aria López was directly involved in review and discussion of the patient's case and participated in medical decision making regarding treatment recommendations. RECOMMENDATIONS: 05/06 - Psychiatric consultation requested by hospitalist service to evaluate patient for acute confusion and depression, with concern mentioned that psychotropic medications may be contributing to confusion. See psychiatric nurse liaison's documentation for additional collateral from daughter. 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 There is a documented diagnosis of dementia, in addition to a recent fall (uncertain if LOS), recent UTI, and numerous medical conditions that increase risk for delirium/intermittent confusion. It is reasonable to hold psychotropic medications until mental status improves to baseline; however, with presently available information it seems unlikely that patient's acute confusion is directly related to these medications. - We will confirm psychotropic medication regimen with daughter/pharmacy, as it appears fluoxetine may have been discontinued when bupropion was initiated. In the interim, agree with holding both agents. An antidepressant agent, if indicated, can be resumed on an outpatient basis when mental status improves. - Pt denies depressed mood, low energy, changes in sleep or appetite, or other symptoms consistent with a formal depressive disorder - although, in the setting of her dementia diagnosis it is uncertain how reliable self-report may be. Nonetheless, there is no indication for acute inpatient psychiatric hospitalization. - It appears current discharge plan is or placement at [facility] - given pleasant confusion with no episodes of agitation or aggression, patient seems to be psychiatrically appropriate for this level of placement once medically cleared. - Please reach out to our service with any additional questions or updates. Psych History Identifying Data 89-year-old female admitted medically on 05/03/2020 after being brought to the ED when family found patient to be acutely confused and laying on the floor in her home. Psychiatric consultation was requested by hospitalist service to evaluate patient for acute confusion and depression. Chief Complaint "I don't know. I don't remember." History of Present Illness Kiara Connell is an 89-year-old female who was admitted medically on 05/03/2020 after presenting to the ED s/p fall. It was reported patient's family had found her acutely confused, laying on the floor in her home. Loss of consciousness is unknown. PMHx is significant for dementia, recent falls, HTN, paroxysmal SVT, systolic dysfunction, COPD, hypothyroidism, HLD, and history of colon cancer. Depression is not documented on problem list; however, medication list suggests patient has been prescribed low-dose antidepressant medications for at least several years. Psychiatric consultation was requested by hospitalist service to evaluate patient for acute confusion and depression, with mention of concern that confusion may be related to her psychotropic medications. Pt is pleasant and cooperative with assessment, though limited in her ability to provide meaningful or reliable information for herself. She is unaware of how she came to be in the hospital, stating "I don't know. I don't remember." After this provider explained concern for fall and confusion, patient still reported "I guess so, it that's what they say, but I don't remember that." Pt shares that "I feel fine" and denies any physical concerns. Pt denies symptoms consistent with a depressive disorder, stating "I don't think there have been any changes since I moved to [place]. 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 Otherwise, she is a limited historian, even with regard to current symptoms. Pt does not recognize names of her previous antidepressant medications on record. She denies SI/SIB and other acute safety concerns. Otherwise, she is not able to provide much information. Past Psychiatric History Outpatient Services: Recent psychotropic medications appear to have been prescribed by patient's PCP. Past Medication Trials: Per available hospital records: 1. Prozac 2. Wellbutrin 3. Ambien - "psychotic response", listed as allergy Allergies Allergy/AdvReac Type Severity Reaction Status Date / Time pravastatin Allergy Unknown muscle Verified 05/03/20 13:53 aches zolpidem AdvReac Unknown psychotic Verified 05/03/20 13:53 response Home Medications Home Medications Medication Instructions Recorded Confirmed Type calcium carbonate-vitamin D3 2 tab PO DAILY 06/17/18 05/03/20 History [Calcium 600 + D(3)] fluoxetine 40 mg PO DAILY 06/17/18 05/03/20 History levothyroxine 100 mcg PO DAILY 06/17/18 05/03/20 History minocycline 100 mg PO UD 06/17/18 05/03/20 History metoprolol succinate 12.5 mg PO DAILY 11/20/18 05/03/20 History amoxicillin 500 mg PO TID 05/03/20 05/03/20 History bupropion HCl 150 mg PO DAILY 05/03/20 05/03/20 History metronidazole 1 applic TOPICAL BID 05/03/20 05/03/20 History Family History Social history suggests patient's brother by suicide at age 52 - no documentation of family history of other mental health conditions. Substance Abuse History Former smoker. Denies significant alcohol or tobacco use. Denies use of illicit substances. 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 HLD (hyperlipidemia) Hypothyroidism Osteoporosis Restrictive lung disease Surgical History H/O hernia repair x 2 History of cataract extraction History of left hemicolectomy 02/04/05 due to Colon CA History of tonsillectomy and adenoidectomy Family History Father , age 78 Lymphoma Mother , age 89 Myocardial infarction Coronary heart disease Stroke Dementia Brother , age 52 Suicide Grandfather Coronary heart disease Grandmother Coronary heart disease Social History Smoking Status: Former smoker Cigarettes Per Day: 50 pack yr history; Second Hand Exposure: No; Hx Alcohol Use: No Hx Substance Use: No Preferred Language: Malay Communication Ability: Effective Care Support Representative Required: No Beliefs That Will Affect Care: Anabaptism Anabaptism Beliefs: Latter Day marital status: / Current Living Situation: Alone Current Living Situation Comment: Condo w/daytime caregivers current occupational status: retired 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 When asked the date, the patient begins reading the board in her room, so is correct in saying "Monday." When this provider blocked the board, she was not even able to provide a guess. When asked the season, she states "there is snow on the ground, so I'm not sure what that means". Apperance: appropriately dressed, appropriately groomed and appeared stated age female of healthy appearing weight, laying in bed in no acute distress. Full breakfast tray in front of patient. She is appropriately dressed in a hospital gown. White hair is curly and appropriately groomed. She wears corrective lenses. Level of hygiene appears appropriate. Eye Contact: good eye contact Motor Behavior: no abnormal motor movements (observed while laying in bed ) Speech: normal rate/rhythm/volume of speech (brief responses to questions, often saying "I don't know") Affect: + flat affect and + constricted affect Mood: no depressed mood and no anxious mood Thought Process: + concrete thought process Thought Content: reality based without delusions; no hopelessness and no worthlessness Suicidal Thoughts: denies suicidal thoughts, denies suicidal plan and denies suicidal intent Homicidal Thoughts: denies homicidal thoughts Hallucinations: no auditory hallucinations and no visual hallucinations Cognition: attention grossly intact and language grossly intact; + recent memory not intact Insight: + limited insight Judgement: + limited judgement Vital Signs (Past 24 Hours): Last Vital Signs Temp 36.8 C 05/06/20 07:03 Pulse 68 05/06/20 07:12 Resp 18 05/06/20 07:03 BP 168/66 H 05/06/20 07:03 Pulse Ox 95 05/06/20 07:03 Review of Systems Constitutional: denied Cardiovascular: denied Respiratory: denied Gastrointestinal: denied Neurological: denied Psychiatric: denies symptoms other than stated above Total of at least 10 systems reviewed, pertinent positives as above and in HPI. Results & Data (PSY) Medications Administered Bupropion HCl (Bupropion Xl 150 Mg Tabcr) 150 mg PO DAILY DENY Stop: 06/03/20 08:59 Last Admin: 05/05/20 07:58 Dose: 150 mg Documented by: [id number] Admin: 05/04/20 08:44 Dose: 150 mg Documented by: [id number] Fluoxetine HCl (Fluoxetine Hcl 20 Mg Cap) 40 mg PO DAILY [facility] Stop: 06/03/20 08:59 Last Admin: 05/05/20 07:57 Dose: 40 mg Documented by: [id number] Admin: 05/04/20 08:44 Dose: 40 mg Documented by: [id number] Heparin Sodium (Porcine) (Heparin Sod 5,000 Unit/0.5 Ml Vial) 5,000 units SQ Q12 DENY Stop: 06/02/20 20:59 Last Admin: 05/06/20 08:51 Dose: 5,000 units Documented by: [id number] Cosigned by: [id number] Admin: 05/05/20 20:26 Dose: 5,000 units Documented by: [id number] Cosigned by: [id number] Admin: 05/05/20 07:58 Dose: 5,000 units Documented by: [id number] Cosigned by: [id number] Admin: 05/04/20 20:34 Dose: 5,000 units Documented by: [id number] Cosigned by: [id number] Admin: 05/04/20 08:46 Dose: 5,000 units Documented by: [id number] Cosigned by: [id number] Admin: 05/03/20 20:14 Dose: Not Given Documented by: [id number] Levothyroxine Sodium (Levothyroxine Sodium 100 Mcg Tablet) 100 mcg PO DAILYBB [facility] Stop: 06/03/20 06:29 Last Admin: 05/06/20 05:49 Dose: 100 mcg Documented by: [id number] Admin: 05/05/20 05:31 Dose: 100 mcg Documented by: [id number] Admin: 05/04/20 06:10 Dose: 100 mcg Documented by: [id number] Metoprolol Succinate (Metoprolol Succ 25mg Ext Rel Tab) 25 mg PO DAILY DENY Stop: 06/02/20 18:29 Last Admin: 05/06/20 08:51 Dose: 25 mg Documented by: [id number] Admin: 05/05/20 07:59 Dose: 25 mg Documented by: [id number] Admin: 05/04/20 08:44 Dose: 25 mg Documented by: [id number] Admin: 05/03/20 18:15 Dose: 25 mg Documented by: [id number] Metronidazole (Metronidazole 0.75% Topical Gel 45 Gm Tube) 1 appln TOP BID DENY Stop: 05/14/20 08:59 Last Admin: 05/05/20 20:26 Dose: 1 appln Documented by: [id number] Admin: 05/05/20 07:59 Dose: 1 appln Documented by: [id number] Admin: 05/04/20 20:33 Dose: 1 appln Documented by: [id number] Admin: 05/04/20 08:45 Dose: 1 appln Documented by: [id number] Multivitamins/Minerals (Calcium 600mg + Vit D 400 Iu Tab) 2 tab PO DAILY [facility] Stop: 06/03/20 08:59 Last Admin: 05/06/20 08:51 Dose: 2 tab Documented by: [id number] Admin: 05/05/20 07:59 Dose: 2 tab Documented by: [id number] Admin: 05/04/20 08:45 Dose: 2 tab Documented by: [id number] Coding Level of Care Code 86665 U Intl Hosp Care Lvl 2
[2020-05-06] MEDS: metroNIDAZOLE 0.75% TOPICAL GEL 45 GM TUBE TOP SCH ×2 (10:50→20:05)
--- NOTE | 2020-05-06 14:50 | Hospitalist Progress Note ---
Date of Service May 06, 2020 Assessment & Plan (1) Acute confusion: Acute confusion with uncertain etiology. Pt lives alone with her cat and is checked on by her children frequently. Home health nurses have been hired to come daily to help with applied ADLs. It is unclear if she fell and was confused as a sequelae of her UTI, which was recently diagnosed as outpatient, or if her BP increased and this may have caused her confusion (210/107) on admission? She is scheduled to see a neuropsychologist as outpatient when she is stable and feeling improved per the concern for possible TBI after multiple episodes of head trauma with falls. Also, her bupropion and fluoxetine have been held pending further investigation into this by the mental health team. For now will continue supportive care, efforts to control BP elevations, although not currently needed, continue to reorient her, keep with good day/night cycles etc. No further abx therapy was thought to be needed at this time and the fact that she is without symptoms with a normal UA supports this. (2) Dementia: Reorient as needed. Consulted palliative care since daughters are considering Hospice for mom with frequent falls and decreased QOL as a result. (3) Fall: PT/OT evaluation with plan to transition her to [facility] on discharge. (4) Weakness: per PT/OT (5) Paroxysmal SVT (supraventricular tachycardia): h/o PSVT with increase in BB early in admission. HR is now controlled. (6) Right ventricular systolic dysfunction: chronic without clinical evidence of volume overload. (7) COPD with emphysema: stable, no wheezing on exam or evidence of acute exacerbation. Cont home oxygen therapy. (8) Hypothyroidism: cont home levothyroxine therapy. (9) Hypertension: Noted to be very high on presentation Continue anxiety and did not take her medications this morning Nitropaste was given in addition to her home metoprolol. She is currently at goal now. As above will consider antihypertensives as needed. Will change to salt restricted diet. (10) UTI (urinary tract infection): Recently diagnosed UTI as an outpatient has been getting amoxicillin Will send UA for culture-UA is not showing any infection and there was not sent for culture Ceftriaxone was discharged. (11) DVT prophylaxis: heparin DNR/DNI Dispo-[facility] when improved and medically stable. Currently she is not at her baseline mental status per daughter. Still awaiting Palliative care evaluation and recommendations. Queta Benson DO [facility] Hospitalist Admission and Anticipated Discharge Date Admission Date: May 03, 2020 Subjective 89 yo F found down at home by her youngest daughter. Daughter states that she has had some worsened memory and cognition in recent months, and this was being attributed to TBI, related to mulitple head injuries including multiple falls resulting in head injuries in recent years. The patient was being treated for a UTI prior to arrival, and currently denies any UTI symptoms. She has been afebrile. She denies any symptoms at this time. However, she was very confused and disoriented in 3 spheres upon my arrival to the bedside. Once reoriented she appeared calmer. She has been having notably higher BP readings that previously. Daughter states she is not on antihypertensives and normally has a SBP around 120 or lower. Review of Systems Review of Systems: All systems reviewed & are unremarkable except as noted in Subjective Physical Exam Physical Exam: CONSTITUTIONAL: WNWD, vitals as above, generally well- appearing EYES: pupils are round and equal bilaterally, normal conjunctivae, no scleral icterus, no fundoscopic abnormality ENT: external ear and nose normal, oropharynx clear, no TM abnormality RESPIRATORY: clear to auscultation bilaterally, no crackles, rales or wheezes, normal respiratory effort CARDIOVASCULAR: regular rate and rhythm, S1 and 2 heard without murmurs, gallops or rubs, no JVD, no peripheral edema GASTROINTESTINAL: soft, nontender, ND, no guarding MUSCULOSKELETAL: strength 5/5 throughout, head is normocephalic and atraumatic, neck supple SKIN: warm and dry, some purple ecchymosis is present on LLE and both arms-not extensive. There is some darkening to both lower extremities bilaterally that appears more chronic. NEUROLOGIC: No facial palsy, no dysarthria. CN 2-12 grossly intact, no sensory deficit, normal cognition, normal speech, no tremor PSYCHIATRIC: alert cooperative but disoriented to place, time and where she is and why Results & Data Results & Data ([facility]) Vital Signs (Past 12 Hours) Vital Signs Temp Pulse Pulse Resp BP Pulse Ox 05/06/20 11:47 37.5 C 75 20 127/82 98 05/06/20 07:12 68 05/06/20 07:03 36.8 C 72 18 168/66 H 95 Laboratory Results Short CBC 05/06/20 Range/Units 06:24 WBC 7.26 (4.8-10.8) K/uL Hgb 13.9 (12.0-16.0) g/dL Hct 41.9 (37-47) % Plt Count 204 (130-400) K/uL Medications Administered Current Inpatient Medications Bupropion HCl (Bupropion Xl 150 Mg Tabcr) 150 mg PO DAILY DENY Stop: 06/03/20 08:59 Last Admin: 05/05/20 07:58 Dose: 150 mg Documented by: Fluoxetine HCl (Fluoxetine Hcl 20 Mg Cap) 40 mg PO DAILY DENY Stop: 06/03/20 08:59 Last Admin: 05/05/20 07:57 Dose: 40 mg Documented by: Heparin Sodium (Porcine) (Heparin Sod 5,000 Unit/0.5 Ml Vial) 5,000 units SQ Q12 DENY Stop: 06/02/20 20:59 Last Admin: 05/06/20 08:51 Dose: 5,000 units Documented by: Levothyroxine Sodium (Levothyroxine Sodium 100 Mcg Tablet) 100 mcg PO DAILYBB DENY Stop: 06/03/20 06:29 Last Admin: 05/06/20 05:49 Dose: 100 mcg Documented by: Metoprolol Succinate (Metoprolol Succ 25mg Ext Rel Tab) 25 mg PO DAILY DENY Stop: 06/02/20 18:29 Last Admin: 05/06/20 08:51 Dose: 25 mg Documented by: Metronidazole (Metronidazole 0.75% Topical Gel 45 Gm Tube) 1 appln TOP BID DENY Stop: 05/14/20 08:59 Last Admin: 05/06/20 10:50 Dose: 1 appln Documented by: Multivitamins/Minerals (Calcium 600mg + Vit D 400 Iu Tab) 2 tab PO DAILY DENY Stop: 06/03/20 08:59 Last Admin: 05/06/20 08:51 Dose: 2 tab Documented by: (1) Fall Encounter type: initial encounter Qualified Code(s): W19.XXXA - Unspecified fall, initial encounter
[2020-05-07] MEDS: LEVOTHYROXINE SODIUM 100 MCG TABLET PO SCH (05:38)
[2020-05-07 05:53] LABS: Hematocrit (blood only) 42.9 % (37-47); Hemoglobin 13.5 g/dL (12.0-16.0); Mean Corpuscular Hemoglobin 27.2 pg (25-34); Mean Corpuscular Hgb Conc 31.5 g/dL (32-36); Mean Corpuscular Volume 86.5 fL (80-100); Platelet Count 214 K/uL (130-400); RDW Coefficient of Variation 14.6 % (11.5-14.5); RDW Standard Deviation 46.7 fL (36.4-46.3); Red Blood Count 4.96 M/uL (4.2-5.4); White Blood Count 6.45 K/uL (4.8-10.8)
[2020-05-07 06:21] LABS: Est GFR (African American) 48.7; Potassium 3.7 mmol/L (3.5-5.1)
[2020-05-07 06:22] LABS: BUN Creatinine Ratio 13.8 (10-20); Calcium 9.2 mg/dl (8.5-10.1); Creatinine Clr Calc Pharmacy 28.9 ml/min
[2020-05-07 06:25] LABS: Phosphorus 2.6 mg/dl (2.5-4.9)
[2020-05-07] MEDS: metroNIDAZOLE 0.75% TOPICAL GEL 45 GM TUBE TOP SCH ×2 (08:12→20:19)
[2020-05-07] MEDS: METOPROLOL SUCC 25MG EXT REL TAB PO SCH ×2 (08:12→12:17)
[2020-05-07] MEDS: CALCIUM 600MG + VIT D 400 IU TAB PO SCH ×2 (08:12→12:16)
[2020-05-07] MEDS: HEPARIN SOD 5,000 UNIT/0.5 ML VIAL SQ SCH ×2 (08:12→20:19)
--- NOTE | 2020-05-07 12:09 | Hospitalist Progress Note ---
Date of Service May 07, 2020 Assessment & Plan (1) Acute confusion: Acute confusion with uncertain etiology. Pt lives alone with her cat and is checked on by her children frequently. Home health nurses have been hired to come daily to help with applied ADLs. It is unclear if she fell and was confused as a sequelae of her UTI, which was recently diagnosed as outpatient, or if her BP increased and this may have caused her confusion (210/107) on admission? She is scheduled to see a neuropsychologist as outpatient when she is at her baseline mental status; there is concern for possible TBI after multiple episodes of head trauma with falls. Also, her bupropion and fluoxetine have been held pending further investigation into this by the mental health team. For now will continue supportive care, efforts to control BP elevations, continue to reorient her, keep with good day/night cycles etc. No further abx therapy was thought to be needed at this time and the fact that she is without symptoms with a normal UA supports this. Will order echo with 9 beat NSVT seen on telemetry overnight. Will also obtain MRI wo contrast. (2) Dementia: Reorient as needed. Consulted palliative care since daughters are considering Hospice for mom with frequent falls and decreased QOL as a result. (3) Fall: PT/OT evaluation with plan to transition her to [facility] on discharge. (4) Weakness: per PT/OT (5) Paroxysmal SVT (supraventricular tachycardia): h/o PSVT with increase in BB early in admission. HR is now controlled. (6) Right ventricular systolic dysfunction: chronic without clinical evidence of volume overload. (7) COPD with emphysema: stable, no wheezing on exam or evidence of acute exacerbation. Cont home oxygen therapy. (8) Hypothyroidism: cont home levothyroxine therapy. (9) Hypertension: Noted to be very high on presentation Continue anxiety and did not take her medications this morning Nitropaste was given in addition to her home metoprolol but has now been stopped. SAlt restricted diet. Added Norvasc 5mg PO daily as SBP has been hitting 170 multiple times now. (10) UTI (urinary tract infection): Recently diagnosed UTI as an outpatient and was getting amoxicillin. This was switched to ceftriaxone, and then this was stopped. No UTI symptoms per patient, however, she is confused and unreliable. (11) DVT prophylaxis: heparin DNR/DNI Dispo[facility] when improved and medically stable. Currently she is not at her baseline mental status per daughter. Still awaiting Palliative care evaluation and recommendations. Queta Benson DO [facility] Hospitalist Admission and Anticipated Discharge Date Admission Date: May 03, 2020 Subjective 89 yo F presented with confusion after being found down and confused by daughter. Pt lives alone and was being treated for a UTI. Denies further UTI symptoms and UA on admission was negative. Rocephin was continued for a couple of doses and then stopped. Pt is still confused. Hypertension on admission, but this is improved. Norvasc added this morning. Pt has known dementia. Confusion is still present. Pt thinks she is in a laboratory. She knows her name but not the date. She doesn't remember the events that brought her here. This is similar to yesterday. She is alert upon verbal stimulus and is not fatigued or sedated. She denies any pain or other symptoms this am. Review of Systems Review of Systems: All systems reviewed & are unremarkable except as noted in Subjective Physical Exam Physical Exam: CONSTITUTIONAL: WNWD, vitals as above, generally well- appearing EYES: pupils are round and equal bilaterally, normal conjunctivae, no scleral icterus ENT: external ear and nose normal, MMM RESPIRATORY: clear to auscultation bilaterally, no crackles, rales or wheezes, normal respiratory effort CARDIOVASCULAR: regular rate and rhythm, S1 and 2 heard without murmurs, gallops or rubs, no JVD, no peripheral edema GASTROINTESTINAL: soft, nontender, ND, no guarding MUSCULOSKELETAL: some weakness generally in moving around the bed independently, she requires assistance sitting up in bed. Strength 5/5 throughout, head is normocephalic and atraumatic, general physical weakness. No gross focal deficit. SKIN: warm and dry, some purple ecchymosis is present on LLE and both arms-not extensive. There is some darkening to both lower extremities bilaterally that appears more chronic. NEUROLOGIC: No facial palsy, no dysarthria. CN 2-12 grossly intact, no sensory deficit, normal cognition, normal speech, no tremor PSYCHIATRIC: alert cooperative but oriented to self only. Results & Data Results & Data ([facility]) Vital Signs (Past 12 Hours) Vital Signs Temp Pulse Pulse Resp BP BP Pulse Ox 05/07/20 11:23 36.7 C 72 18 140/65 95 08/27/20 08:15 36.9 C 78 20 166/82 H 98 05/07/20 08:09 79 131/79 05/07/20 07:39 71 05/07/20 04:05 79 Laboratory Results Short CBC 05/07/20 Range/Units 05:17 WBC 6.45 (4.8-10.8) K/uL Hgb 13.5 (12.0-16.0) g/dL Hct 42.9 (37-47) % Plt Count 214 (130-400) K/uL BMP 05/07/20 05:17 Sodium 139 Potassium 3.7 Chloride 106 Carbon Dioxide 29 BUN 16 D Creatinine 1.16 Glucose 76 Calcium 9.2 Cardiac Enzymes 05/07/20 Range/Units 05:17 Total Creatine Kinase 18 L (26-192) U/L Medications Administered Current Inpatient Medications Amlodipine Besylate (Amlodipine Besylate 5 Mg Tab) 5 mg PO QAM DENY Stop: 06/06/20 08:59 Last Admin: 05/07/20 12:16 Dose: 5 mg Documented by: Bupropion HCl (Bupropion Xl 150 Mg Tabcr) 150 mg PO DAILY DENY Stop: 06/03/20 08:59 Last Admin: 05/05/20 07:58 Dose: 150 mg Documented by: Fluoxetine HCl (Fluoxetine Hcl 20 Mg Cap) 40 mg PO DAILY DENY Stop: 06/03/20 08:59 Last Admin: 05/05/20 07:57 Dose: 40 mg Documented by: Heparin Sodium (Porcine) (Heparin Sod 5,000 Unit/0.5 Ml Vial) 5,000 units SQ Q12 DENY Stop: 06/02/20 20:59 Last Admin: 05/07/20 08:12 Dose: 5,000 units Documented by: Levothyroxine Sodium (Levothyroxine Sodium 100 Mcg Tablet) 100 mcg PO DAILYBB DENY Stop: 06/03/20 06:29 Last Admin: 05/07/20 05:38 Dose: 100 mcg Documented by: Metoprolol Succinate (Metoprolol Succ 25mg Ext Rel Tab) 25 mg PO DAILY DENY Stop: 06/02/20 18:29 Last Admin: 05/07/20 12:17 Dose: 25 mg Documented by: Metronidazole (Metronidazole 0.75% Topical Gel 45 Gm Tube) 1 appln TOP BID DENY Stop: 05/14/20 08:59 Last Admin: 05/07/20 08:12 Dose: 1 appln Documented by: Multivitamins/Minerals (Calcium 600mg + Vit D 400 Iu Tab) 2 tab PO DAILY DENY Stop: 06/03/20 08:59 Last Admin: 05/07/20 12:16 Dose: 2 tab Documented by: (1) Fall Encounter type: initial encounter Qualified Code(s): W19.XXXA - Unspecified fall, initial encounter
[2020-05-07] MEDS: AMLODIPINE BESYLATE 5 MG TAB PO SCH (12:16)
--- NOTE | 2020-05-07 16:00 | Palliative Care Consultation ---
Date of Consultation May 07, 2020 Assessment & Plan (1) Fall: Encounter type: initial encounter Qualified Code(s): W19.XXXA - Unspecified fall, initial encounter (2) Confusion: Waxes and wanes-no behavioral issues off of her Wellbutrin or Prozac-agree with holding them at this time (3) Goals of care, counseling/discussion: Chart reviewed, patient seen and examined. No family at bedside. Spoke with patient's daughter, Linh Covington, who is also her POA, . Patient is an 89-year-old female with a past medical history of depression and prior delusional behaviors, COPD-on O2 nightly, history of PE, SVT, HLD, and recently diagnosed with pneumonia who was brought to the emergency room on 05/03 after being found down by her family. Patient lives alone, patient was down for unknown amount of time. Daughter related history of a mental breakdown that required hospitalization back in the 80s after her divorce-was placed on Prozac at that time. Several months ago her dose was increased to 40 mg and she was also started on Wellbutrin for new paranoid behaviors. Daughter also reports she had visual and auditory hallucinations-she was seeing her mother as well as small children. Patient had a neurological evaluation for dementia-she was evaluated on a very good day and did well. Her PCP has recommended a neuropsych evaluation as an outpatient. Daughter reports that her mental status waxes and wanes, she has good days and she has other days where she is very confused and paranoid. -Patient does have advanced directives, her current CODE STATUS is DNR, her daughter, Linh is her POA. -Collaborated with attending physician-plan is to obtain an MRI evaluating for small vessel disease as well as an echo. -Patient had been at [facility] in the past for rehab-plan is for her to go there for rehab. -Daughter asking questions about hospice appropriateness-difficult to assess with waxing and waning mental status-can be evaluated towards the end of her stay at [facility] in collaboration with staff there. -Discussed with daughter at length her past history, the different forms of dementia as well as patient's hospice appropriateness. -On exam today patient gave fairly accurate history, it took her quite a while to answer questions such as where she was-she [place] [facility] [place], the year was 2001, the month was September. She did give her correct age and date of . She was also accurate in her information regarding having 3 children, her smoking history, reported she had been on her o xygen at night for "quite a while", did not did not know she was on Wellbutrin, did states she was on Prozac also for "quite a while". -Plan is to go to rehab at [facility], she can be evaluated for possible transition to hospice. (4) COPD with emphysema: Emphysema type: unspecified Qualified Code(s): J43.9 - Emphysema, unspecified (5) History of tobacco abuse: (6) Dependence on nocturnal oxygen therapy: History of Present Illness Reason for Consultation: Goals of Care Requesting Physician: Dr Kraft Attending Physician: Queta Benson DO History of Present Illness Chart reviewed, patient seen and examined. No family at bedside. Spoke with patient's daughter, Linh Covington, who is also her POA, . Patient is an 89-year-old female with a past medical history of depression and prior delusional behaviors, COPD-on O2 nightly, history of PE, SVT, HLD, and recently diagnosed with pneumonia who was brought to the emergency room on 05/03 after being found down by her family. Patient lives alone, patient was down for unknown amount of time. Daughter related history of a mental breakdown that required hospitalization back in the 80s after her divorce-was placed on Prozac at that time. Several months ago her dose was increased to 40 mg and she was also started on Wellbutrin for new paranoid behaviors. Daughter also reports she had visual and auditory hallucinations-she was seeing her mother as well as small children. Patient had a neurological evaluation for dementia-she was evaluated on a very good day and did well. Her PCP has recommended a neuropsych evaluation as an outpatient. Daughter reports that her mental status waxes and wanes, she has good days and she has other days where she is very confused and paranoid. -Patient does have advanced directives, her current CODE STATUS is DNR, her daughter, Linh is her POA. -Collaborated with attending physician-plan is to obtain an MRI evaluating for small vessel disease as well as an echo. -Patient had been at [facility] in the past for rehab-plan is for her to go there for rehab. -Daughter asking questions about hospice appropriateness-difficult to assess with waxing and waning mental status-can be evaluated towards the end of her stay at [facility] in collaboration with staff there. -Discussed with daughter at length her past history, the different forms of dementia as well as patient's hospice appropriateness. -On exam today patient gave fairly accurate history, it took her quite a while to answer questions such as where she was-she responded [place] hospital [place] [facility], the year was 2001, the month was September. She did give her correct age and date of . She was also accurate in her information regarding having 3 children, her smoking history, reported she had been on her oxygen at night for "quite a while", did not did not know she was on Wellbutrin, did states she was on Prozac also for "quite a while". -Plan is to go to rehab at [facility], she can be evaluated for possible transition to hospice. Allergies Allergy/AdvReac Type Severity Reaction Status Date / Time pravastatin Allergy Unknown muscle Verified 05/03/20 13:53 aches zolpidem AdvReac Unknown psychotic Verified 05/03/20 13:53 response Home Medications Home Medications Medication Instructions Recorded Confirmed Type calcium carbonate-vitamin D3 2 tab PO DAILY 06/17/18 05/03/20 History [Calcium 600 + D(3)] fluoxetine 40 mg PO DAILY 06/17/18 05/03/20 History levothyroxine 100 mcg PO DAILY 06/17/18 05/03/20 History minocycline 100 mg PO UD 06/17/18 05/03/20 History metoprolol succinate 12.5 mg PO DAILY 11/20/18 05/03/20 History amoxicillin 500 mg PO TID 05/03/20 05/03/20 History bupropion HCl 150 mg PO DAILY 05/03/20 05/03/20 History metronidazole 1 applic TOPICAL BID 05/03/20 05/03/20 History Patient History Medical History Colon cancer Dependence on nocturnal oxygen therapy History of colon cancer History of tobacco abuse quit in 97, 50 pack year hx. HLD (hyperlipidemia) Hypothyroidism Osteoporosis Restrictive lung disease Surgical History H/O hernia repair x 2 History of cataract extraction History of left hemicolectomy 02/04/05 due to Colon CA History of tonsillectomy and adenoidectomy Family History Father , age 78 Lymphoma Mother , age 89 Myocardial infarction Coronary heart disease Stroke Dementia Brother , age 52 Suicide Grandfather Coronary heart disease Grandmother Coronary heart disease Social History Smoking Status: Former smoker Cigarettes Per Day: 50 pack yr history; Second Hand Exposure: No; Hx Alcohol Use: No Hx Substance Use: No Preferred Language: Ukrainian Communication Ability: Effective Roll Repairer Required: No Beliefs That Will Affect Care: Orthodoxy Orthodoxy Beliefs: Voodoo marital status: / Current Living Situation: Alone Current Living Situation Comment: Condo w/daytime caregivers current occupational status: retired 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 She does report shortness of breath with ambulation-states she can walk approximately one block before she gets short of breath, she also reports occasional pedal edema and urinary incontinence. She reports she is continent of bowel Physical Exam Physical Exam: PE: Awake and alert, no acute distress HEENT: HUSLIA, EOMI Respirations: Unlabored, clear breath sounds, sats of 97% on 1.5 L of O2 CV: Regular rate, no pedal edema Abdomen: Soft, nontender Extremities: Multiple bruises and ecchymoses Neuro: Oriented to person, able to give some accurate history. Results & Data ([facility]) Vital Signs (Past 12 Hours) Vital Signs Temp Pulse Pulse Resp BP BP Pulse Ox 05/07/20 15:10 97.5 F L 71 20 111/74 97 05/07/20 11:23 98.1 F 72 18 140/65 95 05/07/20 08:15 98.4 F 78 20 166/82 H 98 05/07/20 08:09 79 131/79 05/07/20 07:39 71 05/07/20 04:05 79 PG Care Time/CCT Total # of Minutes Spent Total Time Spent with Patient: Total time spent 70 minutes with greater than 50% of time spent at bedside evaluating patient's mental status as well as collaborating with patient's daughter and attending physician. 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
[2020-05-08] MEDS: LEVOTHYROXINE SODIUM 100 MCG TABLET PO SCH (06:05)
--- NOTE | 2020-05-08 07:57 | Magnetic Resonance Report ---
Brain MRI WITHOUT CONTRAST HISTORY: confusion, uncertain etiology TECHNIQUE: Multiplanar multisequence MRI of the brain was performed without the use of contrast. COMPARISON STUDY: Head CT 05/03/2020. FINDINGS: A few small scattered foci of restricted diffusion seen within the left basal ganglia, left occipital lobe, right posterior frontal lobe, and right posterior parietal lobe consistent with acut e infarcts. Dominant focus of restricted diffusion within the left occipital lobe measures 1.8 cm. Th is favors embolic infarcts. Extensive white matter T2 hyperintensity is nonspecific but favors advanc ed microvascular ischemic change. The midline structures are intact. There is no mass, hematoma, midl ine shift. The paranasal sinuses and mastoid air cells are clear. Bilateral lens replacement is noted within the orbits. Loss of the normal flow-void of the right internal carotid artery consistent with occlusion. This is age indeterminate. IMPRESSION: 1. A few small scattered acute infarcts as described above. 2. Loss of the normal flow-void within the right internal carotid artery consistent with age-indeterm inate occlusion. 3. Advanced microvascular ischemic changes. ACT 112: Negative or not required by law. Electronically signed by: Morgan Yoo M.D. 05/08/2020 7:56 AM
[2020-05-08] MEDS: CALCIUM 600MG + VIT D 400 IU TAB PO SCH (07:59)
[2020-05-08] MEDS: HEPARIN SOD 5,000 UNIT/0.5 ML VIAL SQ SCH ×2 (07:59→21:04)
[2020-05-08] MEDS: metroNIDAZOLE 0.75% TOPICAL GEL 45 GM TUBE TOP SCH ×2 (07:59→21:04)
[2020-05-08] MEDS: METOPROLOL SUCC 25MG EXT REL TAB PO SCH (08:00)
[2020-05-08] MEDS: AMLODIPINE BESYLATE 5 MG TAB PO SCH (08:00)
[2020-05-08] MEDS: ASPIRIN 81 MG ECTAB PO SCH (09:50)
--- NOTE | 2020-05-08 15:04 | Ultrasound Report ---
ULTRASOUND OF THE CAROTID ARTERIES CLINICAL HISTORY: acute stroke COMPARISON STUDY: None. TECHNIQUE: Real-time, grayscale, and color Doppler sonography of the carotid arteries was performed. Imaging reviewed in the transverse and longitudinal planes. NASCET criteria was utilized for stenosis calcification. FINDINGS: There is moderate atherosclerotic plaque present bilaterally. The peak systolic velocity within the right internal carotid artery is 53 cm/sec. The systolic velocity ratio of right internal to common carotid artery is 1.7. The peak systolic velocity within the left internal carotid artery is 151 cm/sec. The systolic velocity ratio left internal to common carotid artery is 3.5. Antegrade flow is seen in the vertebral arteries. The external carotid arteries are patent. Blood pressure in the right arm measured 145 mm/Hg. Blood pressure in the left arm measured 139 mm/H g. IMPRESSION: 1. Moderately extensive bilateral atheromatous plaque 2. 50-69% stenosis of the left internal carotid artery. ACT 112: Negative or not required by law. Electronically signed by: Linus Pavon M.D. 05/08/2020 3:03 PM
--- NOTE | 2020-05-08 18:55 | Hospitalist Progress Note ---
Date of Service May 08, 2020 Assessment & Plan (1) Acute embolic stroke: MRI overnight revealed multiple acute embolic strokes. Consult Neurology. Added aspirin. Statin intolerant. Cont PT/OT. Echo revealed no structural changes or vegetation (2) Acute confusion: Acute confusion likely related to acute embolic strokes. Pt lives alone with her cat and is checked on by her children frequently. Home health nurses have been hired to come daily to help with applied ADLs. Also, her bupropion and fluoxetine have been held pending further investigation into this by the mental health team. For now will continue supportive care, efforts to control BP elevations, continue to reorient her, keep with good day/night cycles etc. No further abx therapy was thought to be needed at this time and the fact that she is without symptoms with a normal UA supports this. (3) Dementia: Reorient as needed. Consulted palliative care since daughters are considering Hospice for mom with frequent falls and decreased QOL as a result. Current plan is for SNF with possible transition to Hospice later. (4) Fall: PT/OT evaluation with plan to transition her to [facility] on discharge. (5) Weakness: per PT/OT (6) Paroxysmal SVT (supraventricular tachycardia): h/o PSVT with increase in BB early in admission. HR is now controlled. Sinus rhythm on monitor with a short burst of atrial tachycardia overnight. (7) Right ventricular systolic dysfunction: chronic without clinical evidence of volume overload. Echo performed reveals normal RV and LV function. Normal EF. (8) COPD with emphysema: stable, no wheezing on exam or evidence of acute exacerbation. Cont home oxygen therapy. (9) Hypothyroidism: cont home levothyroxine therapy. (10) Hypertension: Noted to be very high on presentation, likely related to acute strokes Nitropaste was given in addition to her home metoprolol but has now been stopped. SAlt restricted diet. Added Norvasc 5mg PO daily as SBP has been hitting 170 multiple times now and she is 48 hours post infarction. (11) UTI (urinary tract infection): Recently diagnosed UTI as an outpatient and was getting amoxicillin. This was switched to ceftriaxone, and then this was stopped. No UTI symptoms per patient, however, she is confused and unreliable. (12) DVT prophylaxis: heparin DNR/DNI Dispo-[facility] when improved and medically stable. I spoke with her daughter this morning by phone and discussed new MRI findings and plan. All questions were answered to her satisfaction and the patient will transition to SNF on Monday. DO [facility] Hospitalist Admission and Anticipated Discharge Date Admission Date: May 03, 2020 Subjective Today she is confused and thinks she is going on a trip. She doesn't know who I am and doesn't know she is in the hospital or why. She is oriented to self only. She denies any pain, SOB, chest pain, headache or other issues at this time. Review of Systems Review of Systems: Other (unreliable as patient is disoriented.) Physical Exam Physical Exam: CONSTITUTIONAL: WNWD, vitals as above, generally well- appearing EYES: pupils are round and equal bilaterally, normal conjunctivae, no scleral icterus ENT: external ear and nose normal, MMM RESPIRATORY: clear to auscultation bilaterally, no crackles, rales or wheezes, normal respiratory effort CARDIOVASCULAR: regular rate and rhythm, S1 and 2 heard without murmurs, gallops or rubs, no JVD, no peripheral edema GASTROINTESTINAL: soft, nontender, ND, no guarding MUSCULOSKELETAL: some weakness generally in moving around the bed independently, she requires assistance sitting up in bed. Strength 5/5 throughout, head is normocephalic and atraumatic, general physical weakness. No gross focal deficit although she has trouble following instructions, therefore, testing is somewhat limited. SKIN: warm and dry, some purple ecchymosis is present on LLE and both arms-not extensive. There is some darkening to both lower extremities bilaterally that appears more chronic. NEUROLOGIC: No facial palsy, no dysarthria. CN 2-12 grossly intact, no sensory deficit, normal cognition, normal speech, no tremor. She has difficulty following instructions so testing is somewhat limited PSYCHIATRIC: alert cooperative but oriented to self only. Results & Data Results & Data ([facility]) Vital Signs (Past 12 Hours) Vital Signs Temp Pulse Pulse Resp BP Pulse Ox 05/08/20 11:21 37.1 C 71 18 158/78 H 95 05/08/20 10:17 72 05/08/20 07:20 36.7 C 77 18 159/82 H 94 Medications Administered Current Inpatient Medications Amlodipine Besylate (Amlodipine Besylate 5 Mg Tab) 5 mg PO QAM [facility] Stop: 06/06/20 08:59 Last Admin: 05/08/20 08:00 Dose: 5 mg Documented by: Aspirin (Aspirin 81 Mg Ectab) 81 mg PO QAM DENY Stop: 06/07/20 08:59 Last Admin: 05/08/20 09:50 Dose: 81 mg Documented by: Bupropion HCl (Bupropion Xl 150 Mg Tabcr) 150 mg PO DAILY DENY Stop: 06/03/20 08:59 Last Admin: 05/05/20 07:58 Dose: 150 mg Documented by: Fluoxetine HCl (Fluoxetine Hcl 20 Mg Cap) 40 mg PO DAILY DENY Stop: 06/03/20 08:59 Last Admin: 05/05/20 07:57 Dose: 40 mg Documented by: Heparin Sodium (Porcine) (Heparin Sod 5,000 Unit/0.5 Ml Vial) 5,000 units SQ Q12 DENY Stop: 06/02/20 20:59 Last Admin: 05/08/20 07:59 Dose: 5,000 units Documented by: Levothyroxine Sodium (Levothyroxine Sodium 100 Mcg Tablet) 100 mcg PO DAILYBB DENY Stop: 06/03/20 06:29 Last Admin: 05/08/20 06:05 Dose: 100 mcg Documented by: Metoprolol Succinate (Metoprolol Succ 25mg Ext Rel Tab) 25 mg PO DAILY DENY Stop: 06/02/20 18:29 Last Admin: 05/08/20 08:00 Dose: 25 mg Documented by: Metronidazole (Metronidazole 0.75% Topical Gel 45 Gm Tube) 1 appln TOP BID DENY Stop: 05/14/20 08:59 Last Admin: 05/08/20 07:59 Dose: 1 appln Documented by: Multivitamins/Minerals (Calcium 600mg + Vit D 400 Iu Tab) 2 tab PO DAILY DENY Stop: 06/03/20 08:59 Last Admin: 05/08/20 07:59 Dose: 2 tab Documented by: (1) Fall Encounter type: initial encounter Qualified Code(s): W19.XXXA - Unspecified fall, initial encounter (2) COPD with emphysema Emphysema type: unspecified Qualified Code(s): J43.9 - Emphysema, unspecified
--- NOTE | 2020-05-08 18:57 | Consultation Report ---
DATE OF CONSULTATION: 05/08/2020 REASON FOR CONSULTATION: Multiple strokes. HISTORY OF PRESENT ILLNESS: The patient is an 89-year-old right-handed female who was found down on the ground several days ago by her family who typically go in early in the morning to check on her before their home health aide comes in. They found her down. Her behavior was bizarre. They had difficulty lifting her. She was disoriented, complaining of being sore on the right. She wears briefs for incontinence and the brief was wet. There was not any tongue biting, but there was some injury. No focal neurologic complaints were noted or observed. She was brought to the hospital. Diagnostic testing on admission revealed a normal white count, H and H, platelet count. Electrolytes were unremarkable. Glucose was 66. Transaminases normal. Troponin negative. Urinalysis notable for trace protein, 3+ ketones, epithelial cells were 10-20. Head CT showed no acute abnormality and no calvarial fracture. EKG revealed the patient to be in sinus rhythm, possible old inferior infarct. Echocardiogram, summary; normal LV chamber size with mild concentric LVH, sigmoid septum, EF 55%-60%, no segmental left ventricular wall motion abnormality noted, grade 1 diastolic dysfunction, mild aortic regurgitation. Left atrial size was normal, no ASD was noted. MRI of the brain, which I have reviewed, showed a few small scattered acute infarcts in the left basal ganglia, left occipital lobe, right posterior frontal lobe, right posterior parietal lobe consistent with acute infarcts. A dominant focus of restricted diffusion in the left occipital lobe measuring 1.8 cm, this favors embolic infarcts. Extensive T2 hyperintensities suggesting advanced microvascular ischemic changes. Loss of normal flow void in the right internal carotid artery consistent with an age indeterminate occlusion. Carotid ultrasound shows moderate extensive bilateral atheromatous plaque, 50%-69% stenosis of the left internal carotid. The right internal carotid appeared to be patent on carotid ultrasound. This patient had a traumatic brain injury related to a fall approximately 2 years ago with subsequent cognitive impairment and delirium, which had improved somewhat. The patient lives by herself with caregivers available at all times except during sleep. She ambulated with a cane, but likely should have used a walker. She has had 3 falls over the last 3 months, February, March and April. None were witnessed. Her family found her down on the ground in the morning. After one of these falls, she rehabilitated at [facility]. While at [facility], she had a several day episode of difficulty with word finding, but her speech improved thereafter except in grants assistant. It was thought that related to COVID and the isolation that this had caused her symptoms. She has otherwise not been known to have stroke. She has difficulty with short-term memory. It has been difficult to separate out some longstanding psychiatric history from the cognitive dysfunction. She has had some chronic delusional thoughts for some time. In February, she was increasingly paranoid. Some of those symptoms were helped by an increase in the dose of Prozac and the addition of Wellbutrin. On my examination, the patient has no complaints. Denies any headache, new weakness or numbness. She is not a good historian. She is unable to provide a meaningful past medical history and I feel that detailed review of systems is unreliable. PAST MEDICAL HISTORY: Notable for MAC infection, emphysema, recurrent major depression, tobacco abuse until 30 years ago, osteoporosis, diverticulosis, history of colon cancer, recurrent falls, nocturnal oxygen desaturation - patient noncompliant, hypothyroidism, restrictive lung disease, SVT, history of pulmonary embolism. The patient was not placed on anticoagulant, her daughter believes that this was because of her age and her fall risk. SOCIAL HISTORY: She discontinued smoking 30 years ago. Lives in her own home. FAMILY HISTORY: She has a family history of her mother having dementia. There is a strong family history of suicide, coronary artery disease, cancer. ALLERGIES: AMBIEN AND ZOLPIDEM. HOME MEDICATIONS: Wellbutrin, calcium, Flagyl gel, Minocin, levothyroxine, Prozac, metoprolol. The patient did not take aspirin regularly. Aspirin had been discontinued because of bruising on the patient's skin. PAST SURGICAL HISTORY: Hernia repair, cataract extraction, left hemicolectomy due to colon cancer, tonsillectomy, adenoidectomy. CURRENT MEDICATIONS: Subcutaneous heparin, Wellbutrin, Toprol, MetroGel, multiple vitamin, aspirin, amlodipine, levothyroxine and Prozac. PHYSICAL EXAMINATION: VITAL SIGNS: 158/78, 71, 18, 37.1, 95% on room air. MENTAL STATUS: The patient is awake and alert, oriented to person, month and year, but not to place. She knows that Rl is the president. There is no right/left confusion. Naming is normal. Repetition normal. She follows 1 at a 3-step commands. Memory is 1/3 at 3 minutes. Concentration fluctuates somewhat, but she is alert throughout the exam. SKIN: There is evidence of ecchymosis in the left wrist and left forearm. There appear to be chronic venous stasis changes on her legs. HEENT: Head is normocephalic, atraumatic. I do not appreciate any carotid bruits. HEART: Regular rate and rhythm. NEUROLOGIC: Pupils are postsurgical. There is normal motility, visual patel, facial symmetry. Speech and spontaneous language are normal. Naming is normal. Motor 5/5, no drift. Normal rapid alternating movements. Diminished reflexes distally. Downgoing toes. [id number] and [id number] are normal. There is intact light touch bilaterally. Vibration sense is present at the ankles. Gait is very slow with a walker. There may be some minor component of dyspraxia, mostly with sitting down, not a dyspraxic gait. IMPRESSION AND PLAN: This patient at baseline has had some cognitive dysfunction. Unclear if it preceded a traumatic brain injury, but her cognition has fluctuated over the last several years and worse over the last several months and been accompanied by several falls. MRI shows multiple acute infarctions, which are suggestive of an embolic etiology. Echocardiogram shows no clot or vegetations. Moderate carotid stenosis on the left and possible intracranial right carotid occlusion do not explain the multiple infarctions as noted. I think the patient is unlikely to be a good empiric anticoagulant candidate. Agree with aspirin provided no pathologic bleeding. Consideration of statin use, although the daughter gives a history of intolerance in the past. May want to explore what agents have been used. Consider doing an EEG, although the patient's daughter indicates that her mother does not want significant testing performed. Regarding underlying dementia, certainly the patient has risk including from her traumatic brain injury, significant cerebrovascular disease. It is difficult to know over the last several months what is worsening dementia and what is some delirium versus minor or moderate cognitive effects or multiple strokes. I would not be an advocate of placing her on medications such as Aricept or memantine. If not previously done, some appropriate laboratories including a B12 level or methylmalonic acid since she has had a colon resection would be reasonable. I will order those and follow with you. I spent approximately 1 hour in consultation between examination, history and discussing with the patient's daughter. NILSON
[2020-05-09] MEDS: LEVOTHYROXINE SODIUM 100 MCG TABLET PO SCH (06:22)
[2020-05-09 06:32] LABS: Hematocrit (blood only) 43.2 % (37-47); Hemoglobin 14.2 g/dL (12.0-16.0); Mean Corpuscular Hemoglobin 27.8 pg (25-34); Mean Corpuscular Hgb Conc 32.9 g/dL (32-36); Mean Corpuscular Volume 84.5 fL (80-100); Mean Platelet Volume 10.7 fL (7.4-10.4); Platelet Count 219 K/uL (130-400); RDW Coefficient of Variation 14.4 % (11.5-14.5); RDW Standard Deviation 44.8 fL (36.4-46.3); Red Blood Count 5.11 M/uL (4.2-5.4); White Blood Count 5.47 K/uL (4.8-10.8)
[2020-05-09] MEDS: ASPIRIN 81 MG ECTAB PO SCH (10:32)
[2020-05-09] MEDS: CALCIUM 600MG + VIT D 400 IU TAB PO SCH (10:32)
[2020-05-09] MEDS: metroNIDAZOLE 0.75% TOPICAL GEL 45 GM TUBE TOP SCH ×2 (10:33→20:54)
[2020-05-09] MEDS: HEPARIN SOD 5,000 UNIT/0.5 ML VIAL SQ SCH ×2 (10:33→20:53)
[2020-05-09] MEDS: METOPROLOL SUCC 25MG EXT REL TAB PO SCH (10:34)
[2020-05-09] MEDS: AMLODIPINE BESYLATE 5 MG TAB PO SCH ×2 (10:34→20:53)
[2020-05-09] MEDS: FOLIC ACID 1 MG TAB PO SCH (12:47)
--- NOTE | 2020-05-09 13:11 | Hospitalist Progress Note ---
Date of Service May 09, 2020 Assessment & Plan (1) Acute embolic stroke: MRI revealed multiple acute embolic strokes. Consult Neurology-asa ok, not a good candidate for anticoagulation and health science writer agrees with this. No evidence of afib so far on telemetry. recommends against namenda or aricept for treatment of dementia. Will continue with folic acid replacement. Added aspirin. Statin intolerant. Cont PT/OT. Echo revealed no structural changes or vegetation. Awaiting transfer to SNF for rehab as a transition to home or [facility] with Hospice in the long run. (2) Metabolic encephalopathy: Acute confusion likely related to acute embolic strokes. Pt lives alone with her cat and is checked on by her children frequently. Home health nurses have been hired to come daily to help with applied ADLs. Also, her bupropion and fluoxetine have been held pending further investigation into this by the mental health team. For now will continue supportive care, efforts to control BP elevations, continue to reorient her, keep with good day/night cycles etc. No further abx therapy was thought to be needed at this time and the fact that she is without symptoms with a normal UA supports this. (3) Dementia: Reorient as needed. Consulted palliative care since daughters are considering Hospice for mom with frequent falls and decreased QOL as a result. Current plan is for SNF with possible transition to Hospice later. Dementia medications not recommended per Neurology (4) Fall: PT/OT evaluation with plan to transition her to [facility] on disch arge. Fall may have been related to a seizure as precipitating event vs stroke, however, daughter reported to Neurologist that patient didn't want significant testing performed. (5) Weakness: continue working with PT/OT and making efforts to get out of bed daily with nursing assistance. (6) Paroxysmal SVT (supraventricular tachycardia): h/o PSVT with increase in BB early in admission. HR is now controlled. No events on monitor overnight. (7) Right ventricular systolic dysfunction: chronic without clinical evidence of volume overload. Echo performed reveals normal RV and LV function. Normal EF. (8) COPD with emphysema: stable, no wheezing on exam or evidence of acute exacerbation. Cont home oxygen therapy. (9) Hypothyroidism: cont home levothyroxine therapy. (10) Hypertension: Noted to be very high on presentation, likely related to acute strokes Nitropaste was given in addition to her home metoprolol but has now been sto pped. Salt restricted diet. Added Norvasc 5mg PO daily as SBP has been hitting 170 multiple times now and she is 48 hours post infarction. (11) UTI (urinary tract infection): Recently diagnosed UTI as an outpatient and was getting amoxicillin. This was switched to ceftriaxone, and then this was stopped. No UTI symptoms per patient and no further treatment this admission (12) DVT prophylaxis: heparin DNR/DNI Dispo-[facility] when improved and medically stable. I spoke with her daughter this morning by phone and discussed new MRI findings and plan. All questions were answered to her satisfaction and the patient will transition to SNF on Monday. Queta Benson [facility] and Anticipated Discharge Date Admission Date: May 03, 2020 Subjective She reports doing well today. She is answering questions more appropriately today but still doesn't have a full grasp on the current situation. States she saw her grandson today and that went well. Reports tolerating food without issue. denies and pain, headache or other issues at this time. reports being awake for most of the day but not out of bed. Review of Systems Review of Systems: All systems reviewed & are unremarkable except as noted in Subjective Physical Exam 2 Physical Exam: CONSTITUTIONAL: WNWD, vitals as above, generally well- appearing EYES: pupils are round and equal bilaterally, normal conjunctivae, no scleral icterus ENT: external ear and nose normal, MMM RESPIRATORY: clear to auscultation bilaterally, no crackles, rales or wheezes, normal respiratory effort CARDIOVASCULAR: regular rate and rhythm, S1 and 2 heard without murmurs, gallops or rubs, no JVD, no peripheral edema GASTROINTESTINAL: soft, nontender, ND, no guarding MUSCULOSKELETAL: some weakness generally in moving around the bed independently, she requires assistance sitting up in bed. Strength 5/5 throughout, head is normocephalic and atraumatic, general physical weakness. No gross focal deficits. SKIN: warm and dry, some purple ecchymosis is present on LLE and both arms-not extensive. There is some darkening to both lower extremities bilaterally that appears more chronic. NEUROLOGIC: No facial palsy, no dysarthria. CN 2-12 grossly intact, no sensory deficit, normal cognition, normal speech, no tremor. PSYCHIATRIC: alert cooperative but oriented to self only. Results & Data Results & Data ([facility]) Vital Signs (Past 12 Hours) Vital Signs Temp Pulse Pulse Resp BP Pulse Ox 05/09/20 11:36 36.8 C 79 18 137/84 96 05/09/20 07:56 36.8 C 82 18 159/90 H 96 05/09/20 07:54 85 05/09/20 04:42 36.7 C 77 18 144/77 H 94 Laboratory Results Short CBC 05/09/20 Range/Units 05:25 WBC 5.47 (4.8-10.8) K/uL Hgb 14.2 (12.0-16.0) g/dL Hct 43.2 (37-47) % Plt Count 219 (130-400) K/uL Medications Administered Current Inpatient Medications Amlodipine Besylate (Amlodipine Besylate 5 Mg Tab) 5 mg PO BID DENY Stop: 06/08/20 08:59 Last Admin: 05/09/20 10:34 Dose: 5 mg Documented by: Aspirin (Aspirin 81 Mg Ectab) 81 mg PO QAM DENY Stop: 06/07/20 08:59 Last Admin: 05/09/20 10:32 Dose: 81 mg Documented by: Bupropion HCl (Bupropion Xl 150 Mg Tabcr) 150 mg PO DAILY DENY Stop: 06/03/20 08:59 Last Admin: 05/05/20 07:58 Dose: 150 mg Documented by: Fluoxetine HCl (Fluoxetine Hcl 20 Mg Cap) 40 mg PO DAILY DENY Stop: 06/03/20 08:59 Last Admin: 05/05/20 07:57 Dose: 40 mg Documented by: Folic Acid (Folic Acid 1 Mg Tab) 1 mg PO QAM DENY Stop: 06/08/20 08:59 Last Admin: 05/09/20 12:47 Dose: 1 mg Documented by: Heparin Sodium (Porcine) (Heparin Sod 5,000 Unit/0.5 Ml Vial) 5,000 units SQ Q12 DENY Stop: 06/02/20 20:59 Last Admin: 05/09/20 10:33 Dose: 5,000 units Documented by: Levothyroxine Sodium (Levothyroxine Sodium 100 Mcg Tablet) 100 mcg PO DAILYBB DENY Stop: 06/03/20 06:29 Last Admin: 05/09/20 06:22 Dose: 100 mcg Documented by: Metoprolol Succinate (Metoprolol Succ 25mg Ext Rel Tab) 25 mg PO DAILY [facility] Stop: 06/02/20 18:29 Last Admin: 05/09/20 10:34 Dose: 25 mg Documented by: Metronidazole (Metronidazole 0.75% Topical Gel 45 Gm Tube) 1 appln TOP BID [facility] Stop: 05/14/20 08:59 Last Admin: 05/09/20 10:33 Dose: 1 appln Documented by: Multivitamins/Minerals (Calcium 600mg + Vit D 400 Iu Tab) 2 tab PO DAILY DENY Stop: 06/03/20 08:59 Last Admin: 05/09/20 10:32 Dose: 2 tab Documented by: (1) COPD with emphysema Emphysema type: unspecified Qualified Code(s): J43.9 - Emphysema, unspecified (2) Fall Encounter type: initial encounter Qualified Code(s): W19.XXXA - Unspecified fall, initial encounter
--- NOTE | 2020-05-09 14:40 | Progress Notes ---
DATE: 05/09/2020 SUBJECTIVE: I am seeing the patient in followup of multiple embolic infarcts. This is superimposed on some cognitive dysfunction as well as delirium. Labs are reviewed. Folic acid is 3.99. Methylmalonic acid is pending. TSH was normal. OBJECTIVE: VITAL SIGNS: Blood pressure 137/84, 79, 18. GENERAL: The patient is awake and alert, oriented to person only, but not place. She knows that it is 2020. No complaints are noted. There is normal visual patel, facial symmetry. Symmetric strength in the upper and lowers. IMPRESSION: Multiple embolic infarcts raising the question of whether or not there could be underlying atrial fibrillation. The patient appears to be a poor candidate for anticoagulants. I agree with antiplatelet agents with aspirin. Consider reviewing her medical history and reviewing which lipid lowering agents she may have not had prior exposure to. Daughter indicates that she has been intolerant in the past. The patient has moderate carotid stenosis on the left and possible intracranial right carotid occlusion. These do not explain the neurologic symptoms or radiographic findings. I think it depends on the thoughts of the family whether or not they want to follow up on the carotid ultrasound in a year. My suspicion is not as the patient had previously not wanted to pursue a lot of testing. The patient has had multiple falls and has been found on the ground, could consider doing an EEG, although again the patient's daughter indicated that her mother did not want significant testing performed. Regarding the underlying dementia, it appears that she is folic acid deficient. I would begin folic acid, also await the results of the methylmalonic acid. I would not recommend any use of medications to treat the dementia which is likely mixed with certainly a component of vascular dementia. I would simply modify what risk factors a modifiable.
[2020-05-10] MEDS: LEVOTHYROXINE SODIUM 100 MCG TABLET PO SCH (07:11)
[2020-05-10] MEDS: ASPIRIN 81 MG ECTAB PO SCH (08:04)
[2020-05-10] MEDS: FOLIC ACID 1 MG TAB PO SCH (08:04)
[2020-05-10] MEDS: CALCIUM 600MG + VIT D 400 IU TAB PO SCH (08:04)
[2020-05-10] MEDS: HEPARIN SOD 5,000 UNIT/0.5 ML VIAL SQ SCH ×2 (08:05→20:22)
[2020-05-10] MEDS: AMLODIPINE BESYLATE 5 MG TAB PO SCH (08:05)
[2020-05-10] MEDS: METOPROLOL SUCC 25MG EXT REL TAB PO SCH (08:05)
[2020-05-10] MEDS: metroNIDAZOLE 0.75% TOPICAL GEL 45 GM TUBE TOP SCH ×2 (08:05→20:26)
--- NOTE | 2020-05-10 13:24 | Progress Notes ---
DATE: 05/10/2020 SUBJECTIVE: I am seeing the patient in followup of multiple embolic infarcts, likely cardiac in nature. The patient has been placed on aspirin. She has not had any new neurologic symptoms. PHYSICAL EXAMINATION: VITAL SIGNS: On exam, 125/73, 72, 18, 36.7, 91. GENERAL: The patient is awake and alert. She indicates that she does know where she is. She is oriented to person, but not date. There is normal facial symmetry, normal speech and language. No drift in the uppers and symmetric strength in the lowers. IMPRESSION: Cardioembolic infarction. Continue antiplatelet therapy, risk factor modification. Left internal carotid stenosis. Please see prior note regarding discussion. If desired, the patient can see Dr. Blancas in followup. He has seen her previously. Dementia, likely vascular or mixed. Her folic acid was noted to be low and that should be supplemented and her methylmalonic acid level is pending. Her B12 level was on the low side of normal that will need to be followed up as an outpatient. Will sign off.. MTDD
--- NOTE | 2020-05-10 16:47 | Hospitalist Progress Note ---
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 No evidence of afib so far on telemetry. Recommends against namenda or aricept for treatment of dementia. Will continue with folic acid replacement. Cont ASA 81mg daily. Statin intolerant. Cont PT/OT. Echo revealed no structural changes or vegetations. Awaiting transfer to SNF for rehab as a transition to home or [facility] with Hospice in the long run. (2) Metabolic encephalopathy: Acute confusion likely related to acute embolic strokes. Pt lives alone with her cat and is checked on by her children frequently. Home health nurses have been hired to come daily to help with applied ADLs. Also, her bupropion and fluoxetine have been held pending further investigation into this by the mental health team. I called both her pharmacist and her daughter and reviewed outpatient chart. She was taking Fluoxetine for over a year and Welbutrin was recently added 3-4 weeks ago. Daughter supported that she was doing well on this instead of being agitated. Will start both back at half dose for now. (3) Dementia: Reorient as needed. Consulted palliative care since daughters are considering Hospice for mom with frequent falls and decreased QOL as a result. Current plan is for SNF with possible transition to Hospice later. Dementia medications not recommended per Neurology (4) Fall: PT/OT evaluation with plan to transition her to [facility] on discharge. Fall may have been related to a seizure as precipitating event vs stroke, however, daughter reported to Neurologist that patient didn't want significant testing performed. (5) Weakness: continue working with PT/OT and making efforts to get out of bed daily with nursing assistance. (6) Paroxysmal SVT (supraventricular tachycardia): h/o PSVT with increase in BB early in admission. HR is now controlled. No events on monitor overnight. (7) Right ventricular systolic dysfunction: chronic without clinical evidence of volume overload. Echo performed reveals normal RV and LV function. Normal EF. (8) COPD with emphysema: stable, no wheezing on exam or evidence of acute exacerbation. Cont home oxygen therapy. (9) Hypothyroidism: cont home levothyroxine therapy. (10) Hypertension: Noted to be very high on presentation, likely related to acute strokes Nitropaste was given in addition to her home metoprolol but has now been stopped. Salt restricted diet. Added Norvasc 5mg PO daily initially then 5mg BID. Ultimately came back down to 5mg daily and at goal. (11) UTI (urinary tract infection): Recently diagnosed UTI as an outpatient and was getting amoxicillin. This was switched to ceftriaxone, and then this was stopped. No UTI symptoms per patient and no further treatment this admission (12) DVT prophylaxis: heparin DNR/DNI Dispo-[facility] when improved and medically stable. I spoke with her daught er this morning by phone and discussed new MRI findings and plan. All questions were answered to her satisfaction and the patient will transition to SNF on Monday. Queta Benson DO [facility] Hospitalist Admission and Anticipated Discharge Date Admission Date: May 03, 2020 Subjective Pt confused Denies issues Ambuates with 1 assist per nurseing Spoke with daughter by phone and updated her Review of Systems Review of Systems: All systems reviewed & are unremarkable except as noted in Subjective Physical Exam Physical Exam: CONSTITUTIONAL: WNWD, vitals as above, generally well- appearing EYES: pupils are round and equal bilaterally, normal conjunctivae, no scleral icterus ENT: external ear and nose normal, MMM RESPIRATORY: clear to auscultation bilaterally, no crackles, rales or wheezes, normal respiratory effort CARDIOVASCULAR: regular rate and rhythm, S1 and 2 heard without murmurs, gal lops or rubs, no JVD, no peripheral edema GASTROINTESTINAL: soft, nontender, ND, no guarding MUSCULOSKELETAL: some weakness generally in moving around the bed independently, she requires assistance sitting up in bed. Strength 5/5 throughout, head is normocephalic and atraumatic, general physical weakness. No gross focal deficits. SKIN: warm and dry, some purple ecchymosis is present on LLE and both arms-not extensive. There is some darkening to both lower extremities bilaterally that appears more chronic. NEUROLOGIC: No facial palsy, no dysarthria. CN 2-12 grossly intact, no sensory deficit, normal cognition, normal speech, no tremor. PSYCHIATRIC: alert cooperative but oriented to self only. Results & Data Results & Data ([facility]) Vital Signs (Past 12 Hours) Vital Signs Temp Pulse Pulse Resp BP Pulse Ox 05/10/20 15:16 36.5 C 95 H 18 102/68 92 05/10/20 11:20 36.7 C 72 18 125/73 91 05/10/20 06:58 36.4 C L 73 18 128/72 95 05/10/20 06:28 77 Medications Administered Current Inpatient Medications Amlodipine Besylate (Amlodipine Besylate 5 Mg Tab) 5 mg PO QAM DENY Stop: 06/10/20 08:59 Aspirin (Aspirin 81 Mg Ectab) 81 mg PO QAM DENY Stop: 06/07/20 08:59 Last Admin: 05/10/20 08:04 Dose: 81 mg Documented by: Bupropion HCl (Bupropion Xl 150 Mg Tabcr) 150 mg PO DAILY DENY Stop: 06/03/20 08:59 Last Admin: 05/05/20 07:58 Dose: 150 mg Documented by: Fluoxetine HCl (Fluoxetine Hcl 20 Mg Cap) 40 mg PO DAILY DENY Stop: 06/03/20 08:59 Last Admin: 05/05/20 07:57 Dose: 40 mg Documented by: Folic Acid (Folic Acid 1 Mg Tab) 1 mg PO QAM DENY Stop: 06/08/20 08:59 Last Admin: 05/10/20 08:04 Dose: 1 mg Documented by: Heparin Sodium (Porcine) (Heparin Sod 5,000 Unit/0.5 Ml Vial) 5,000 units SQ Q12 DENY Stop: 06/02/20 20:59 Last Admin: 05/10/20 08:05 Dose: 5,000 units Documented by: Levothyroxine Sodium (Levothyroxine Sodium 100 Mcg Tablet) 100 mcg PO DAILYBB DENY Stop: 06/03/20 06:29 Last Admin: 05/10/20 07:11 Dose: 100 mcg Documented by: Metoprolol Succinate (Metoprolol Succ 25mg Ext Rel Tab) 25 mg PO DAILY DENY Stop: 06/02/20 18:29 Last Admin: 05/10/20 08:05 Dose: 25 mg Documented by: Metronidazole (Metronidazole 0.75% Topical Gel 45 Gm Tube) 1 appln TOP BID DENY Stop: 05/14/20 08:59 Last Admin: 05/10/20 08:05 Dose: Not Given Documented by: Multivitamins/Minerals (Calcium 600mg + Vit D 400 Iu Tab) 2 tab PO DAILY DENY Stop: 06/03/20 08:59 Last Admin: 05/10/20 08:04 Dose: 2 tab Documented by: (1) COPD with emphysema Emphysema type: unspecified Qualified Code(s): J43.9 - Emphysema, unspecified (2) Fall Encounter type: initial encounter Qualified Code(s): W19.XXXA - Unspecified fall, initial encounter
[2020-05-10] MEDS ORDERED: FLUOXETINE HCL 20 MG CAP PO ONE (16:53)
[2020-05-10] MEDS: buPROPion HCl 75 MG TABLET PO SCH (17:10)
[2020-05-11] MEDS: LEVOTHYROXINE SODIUM 100 MCG TABLET PO SCH (06:26)
[2020-05-11] MEDS: CALCIUM 600MG + VIT D 400 IU TAB PO SCH (08:34)
[2020-05-11] MEDS: ASPIRIN 81 MG ECTAB PO SCH (08:34)
[2020-05-11] MEDS: FOLIC ACID 1 MG TAB PO SCH (08:34)
[2020-05-11] MEDS: HEPARIN SOD 5,000 UNIT/0.5 ML VIAL SQ SCH (08:35)
[2020-05-11] MEDS: buPROPion HCl 75 MG TABLET PO SCH (08:35)
[2020-05-11] MEDS: METOPROLOL SUCC 25MG EXT REL TAB PO SCH (08:36)
[2020-05-11] MEDS ORDERED: FLUOXETINE HCL 20 MG CAP PO SCH (09:00)
[2020-05-11] MEDS ORDERED: AMLODIPINE BESYLATE 5 MG TAB PO SCH (09:00)
[2020-05-11] MEDS: metroNIDAZOLE 0.75% TOPICAL GEL 45 GM TUBE TOP SCH (11:18)
--- NOTE | 2020-05-11 12:12 | Discharge Summary ---
Date of Service May 11, 2020 Admission HPI Per Admitting Provider She is an 89-year-old female with significant past medical history including SVT with history of DVT and pulmonary embolism, hypertension, COPD with emphysema, right ventricular dysfunction, restrictive lung disease, recently diagnosed cognitive impairment and including other medical conditions as mentioned below, apparently was found on the floor by the family members this afternoon. The history was taken from the patient and the daughter. The patient is unaware about what happened to her and how did she fall. Apparently she has been falling almost every month and recently she was evaluated for cognitive im pairment and was noted to have dementia. She was confused and was not been able to give any history but she was not having any distress during conversation. No history of fever and/or chills, no chest pain, palpitation or shortness of breath, no abdominal pain, nausea and or vomiting, she is incontinent of urine and was recently diagnosed UTI as an outpatient and has has been receiving amoxicillin which she has not finished yet. She denies any significant arthritis involving any joints. Does not have any acute headache, speech problem or any numbness or tingling involving any of the extremities. She lives alone and get adequate home health support. She was noted to be hypertensive in the emergency room without any significant lab abnormalities and her UA is still pending. She was admitted to the hospital for continuation of care. Admission Exam Per Admitting Provider Physical Exam: Lying in bed comfortably Constitutional: + thin; no acute distress and not ill appearing Eyes: PERRL, conjunctivae normal, anicteric sclerae ENMT: external ear and nose normal, oropharynx normal Neck: trachea midline, no thyromegaly Respiratory: normal respiratory effort; no respiratory distress Auscultation: lungs clear to auscultation bilaterally and + crackles (Minimal bibasilar crackles) Cardiovascular: Rate/Rhythm: regular rate and regular rhythm Heart Sounds: + murmur (Ejection systolic murmur 1/6 with precordial) Extremities: no edema Gastrointestinal (Abdomen): Inspection/Auscultation: abdomen normal to inspection and normal bowel sounds; abdomen not distended Percussion/Palpation: abdomen soft; abdomen nontender Musculoskeletal: No acute arthritis involving any joints Skin: Chronic skin discoloration in the lower extremities. Multiple bruising involving upper extremities mostly on the left hand Neurologic: moves all extremities; no focal motor deficits Alert and awake but totally confused. Generally weak Psychiatric: Insight: + poor insight Principal Diagnosis Acute embolic stroke Dementia Metabolic encephalopathy Fall Weakness COPD with emphysema on chronic oxygen therapy Discharge Exam CONSTITUTIONAL: WNWD, vitals as above, generally well-appearing EYES: pupils are round and equal bilaterally, normal conjunctivae, no scleral icterus ENT: external ear and nose normal, MMM RESPIRATORY: clear to auscultation bilaterally, no crackles, rales or wheezes, normal respiratory effort CARDIOVASCULAR: regular rate and rhythm, S1 and 2 heard without murmurs, gallops or rubs, no JVD, no peripheral edema GASTROINTESTINAL: soft, nontender, ND, no guarding MUSCULOSKELETAL: some weakness generally in moving around the bed independently, she requires assistance sitting up in bed. Strength 5/5 throughout, head is normocephalic and atraumatic, general physical weakness. No gross focal deficits. SKIN: warm and dry, some purple ecchymosis is present on LLE and both arms-not extensive. There is some darkening to both lower extremities bilaterally that appears more chronic. NEUROLOGIC: No facial palsy, no dysarthria. CN 2-12 grossly intact, no sensory deficit, she is awake with normal speech but is significantly disoriented as she has been over the last couple of days without change. PSYCHIATRIC: alert cooperative but oriented to self only. 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 Consulted Neurology-aspirin ok, not a good candidate for anticoagulation and contact lens cutter agrees with this, although this was a peripheral ask and not a formal consultation. No evidence of atrial fibrillation on telemetry. Neuro recommends against namenda or aricept for treatment of dementia. Will continue with folic acid replacement. Cont ASA 81mg daily. Statin intolerant. Cont PT/OT as tolerated; transitioning to SNF from hospital now. Echo revealed no structural changes or vegetations. Hospice is a consideration per the family in the long-term. (2) Metabolic encephalopathy: Acute confusion likely related to acute embolic strokes. Pt lives alone with her cat and is checked on by her children frequently. Home health nurses have been hired to come daily to help with applied ADLs. Also, her bupropion and fluoxetine have been held pending further investigation in the setting of acute confusion on arrival. Both her pharmacist and her daughter were contacted and confirmed that she was taking Fluoxetine for over a year and Welbutrin was recently added 3-4 weeks ago for outbursts of agitation at home. Daughter supported that she was doing well oon this regimen and these were started back again after her mental status was unchanged for a few days. (3) Dementia: Reorient as needed. Consulted palliative care since daughters are considering Hospice for mom with frequent falls and decreased QOL as a result. Current plan is for SNF with possible transition to Hospice later. Dementia medications not recommended per Neurology (4) Fall: PT/OT evaluation with plan to transition her to [facility] on discharge. Fall may have been related to her stroke but this was unwitnessed. Neurology brought up the possibility of seizures, however, daughter reported that patient didn't want significant testing performed. (5) Weakness: continue working with PT/OT and making efforts to get out of bed daily with nursing assistance. (6) COPD with emphysema: stable, no wheezing on exam or evidence of acute exacerbation. Cont home oxygen therapy. (7) Hypertension: Noted to be very high on presentation, likely related to acute strokes Nitropaste was given in addition to her home metoprolol but has now been stopped. Salt restricted diet. Added Norvasc 5mg PO daily initially then 5mg BID. Ultimately came back down to 5mg daily and at goal. (8) UTI (urinary tract infection): Recently diagnosed UTI as an outpatient and was getting amoxicillin. This was switched to ceftriaxone, and then this was stopped. No UTI symptoms per patient and no further treatment this admission Total Time Total Time Spent Total Time Spent (In Minutes): 60 Total Time Includes: Examination of the Patient, Discharge Planning, Medication Reconciliation and Communication With Other Providers Discharge Plan Discharge Items Patient Disposition: Personal Half-Way Reason For Visit: ACUTE CONFUSION, DEMENTIA, PARTIALLY TREATED UTI Discharge Diagnosis: Acute embolic stroke Dementia Metabolic encephalopathy Fall Weakness COPD with emphysema on chronic oxygen therapy Condition on Discharge: Good Activity: As commented below Activity Comment: per receiving facility Non-emergency contact: Primary Care Provider Call non-emergency contact if: you have any medication questions and your symptoms worsen Follow-up/Referrals: Randell Guzman, [Primary Care Provider] - Diet: Low Sodium (2gm) Diet Texture: Easy to Chew Addtenzin Attending Provider Instructions: Please take all medications as instructed on discharge list below. It is recommended that you follow-up with primary care doctor (PCP) in approximately 1 to 2 weeks after discharge. It is recommended that you follow-up with [facility] neurology within 6 to 8 weeks after discharge. It was a pleasure taking care of you! Please call if you have any questions or problems. You can reach a [facility] hospitalist on duty at [facility] 24 hours a day by calling [phone]. Take care of yourself. Queta Benson DO [facility] Hospitalist Add Advertising Sales Consultant Provider Instructions: Risk Factors for Stroke: You can reduce your chances of stroke by working with your medical provider to adopt a healthy lifestyle. Some specific ways to lower your chance of stroke are: * If you are a smoker, now is the time to stop smoking cigarettes * If you are diabetic, improve the control of your blood sugars * Avoid excessive amounts of alcohol * Control high blood pressure * Lose weight if you are overweight * Be sure to lead an active lifestyle * Eat a healthy diet low in salt, cholesterol and fat You should know about other risk factors for stroke that you are unable to control. These include: * Age 55 years or older * Male gender * Certain racial groups: , or / * Family History of Stroke, Mini stroke or Heart Attack * Sickle Cell Disease Follow Up: It is important for you to keep your follow up appointments with your medical provider. Who to Call and When: Medical Emergencies: Call 911 immediately if you experience any of the following warning signs and symptoms of Stroke: * Sudden numbness or weakness of the face, arm or leg, especially on one side of the body * Sudden confusion, trouble speaking or understanding * Sudden trouble seeing in one or both eyes * Sudden trouble walking, dizziness, loss of balance or coordination * Sudden severe headache with no cause Do not delay calling 911 if you experience any warning signs or symptoms of a stroke. Delay in seeking medical attention may affect what treatments can be given to you. . Pending Studies at Discharge: No Stand-Alone Forms: [facility] [employer], Smoking Cessation Skilled Items Patient informed of condition?: Yes DNR: Yes Discharge Level of Care: Skilled Communicable Disease: No Discharge Prognosis: Stable Lines: None Urinary Catheter: No Medications and DC Order Prescriptions: New metoprolol succinate 25 mg Tablet Extended Release 24 Hr 25 mg PO DAILY Qty: 30 RF: 1 aspirin 81 mg Tablet,Delayed Release (Dr/Ec) 81 mg PO QAM Qty: 90 RF: 0 folic acid 1 mg Tablet 1 mg PO QAM Qty: 30 RF: 1 Continued minocycline 100 mg Capsule 100 mg PO UD Qty: 30 RF: 0 fluoxetine 20 mg Capsule 40 mg PO DAILY Qty: 30 RF: 0 metronidazole 0.75 % gel 1 applic TOPICAL BID Qty: 45 RF: 0 bupropion HCl 150 mg tablet extended release 24 hr 150 mg PO DAILY Qty: 30 RF: 0 calcium carbonate-vitamin D3 [Calcium 600 + D(3)] 600 mg(1,500mg) -400 unit Tablet 2 tab PO DAILY Qty: 60 RF: 0 levothyroxine 100 mcg tablet 100 mcg PO DAILY@0600 Qty: 30 RF: 0 Discontinued amoxicillin 500 mg capsule 500 mg PO TID RF: 0 metoprolol succinate 25 mg Tablet Extended Release 24 Hr 12.5 mg PO DAILY RF: 0 Discharge Orders: Discharge Order (Routine); Ordered 05/11/20 Ordered By: Queta Benson Admission Data Admit Date/Time: 05/03/20 15:58 Attending Provider: Queta Benson Admit Provider: Dirk Kraft Primary Care Provider: Randell Guzman Other Providers: Aria López ; Aniyah Davies ; Xiomara Stover Other Interventions: Discharge Summary Assessment (RN) Last Done: 05/11/20 12:38
== END 2020-05-11 14:10 | disposition home or self-care (01) | DRG 64 ==
LOC: ED 12:30 → 2N 15:58 → SUATTDRO 15:58 → 2N 17:25

== ENCOUNTER 2020-07-01 13:09 | Inpatient (IN) ==
--- NOTE | 2020-07-01 13:23 | Emergency Department Note ---
Impression & Plan Closed hip fracture, Fall ED Provider Note NAME: YANI BAILEY AGE: 89 SEX: F : 1930 ARRIVES VIA: Ambulance INFORMANT: Patient ED PROVIDER(S): Juan R Mahajan DO CHIEF COMPLAINT: Fall right hip pain HPI: Patient is an 89-year-old female who lives at [facility]. She notes her daughter was leaving and she ran out to go get her. When she opened the door s he notes she lost her balance and fell onto her right side. Daughter notes that she was not there but patient was going through a door and lost her balance and fell. This was witnessed. There is no loss consciousness. She denied hitting her head or neck. No head or neck pain. She is complaining of pain in her right hip and femur. No other exacerbating or remitting factors. She denies any chest pain or shortness of breath. No belly pain. No nausea vomiting or diarrhea. She does not want anything for the pain at this time. This occurred right before arrival. She was brought in by EMS. ROS: See above HPI for pertinent positives & negatives. A total of 10 systems reviewed and were otherwise negative. PAST MEDICAL HISTORY:See Below PAST SURGICAL HISTORY:See Below FAMILY HISTORY:See Below SOCIAL HISTORY:See Below HOME MEDICATIONS:See Below ALLERGIES:See Below VITALS:See Below PHYSICAL EXAMINATION: GENERAL: alert, well appearing, well nourished, no distress, non-toxic HEAD: normal cephalic, atraumatic EYE EXAM: normal conjunctiva, PERRL and EOM's grossly intact OROPHARYNX: no exudate, no erythema, lips, buccal mucosa, and tongue normal and mucous membranes are moist NECK: supple, no nuchal rigidity, no adenopathy, non-tender CHEST: stable to compression anteriorly and posteriorly LUNGS: clear to auscultation. Normal chest wall mechanics HEART: no murmurs, S1 normal and S2 normal ABDOMEN: abdomen soft, non-tender, normo-active bowel sounds, no masses, no rebound or guarding. PELVIS: stable to compression anteriorly and posteriorly BACK: Back is symmetrical on inspection and there is no deformity, no midline tenderness, no CVA tenderness. UPPER EXTREMITIES: full active and passive range of motion of all joints without tenderness to palpation LOWER EXTREMITIES: Flexion-extension of the bilateral hips, knees, ankles intact with moderate pain with flexion of right hip and right knee. Tenderness on palpation of right mid femur. Skin is intact. 2 abrasions over the anterior left distal hernandez. NEURO EXAM: Awake alert following commands moving all extremities at her baseline per daughter MEDICAL DECISION MAKING: Patient is an 89-year-old female who presents ER following mechanical fall and right hip pain. Was witnessed. No loss consciousness. IV was established blood work was obtained. Labs show no significant leukocytosis or anemia. INR unremarkable. BMP was unremarkable. X-rays of the right hip show lesser troches fracture. Discussed with Bull Carrero from [facility] orthopedics. He recommended a CT. CT shows likely additional fracture. Discussed with Dr. Kessler who recommended admission and possible troponin out tomorrow. Patient family were updated bedside. Triage Nursing notes reviewed. Prior medical records reviewed Vital Signs: reviewed and remarkable for no significant abnormalities Differential diagnosis: Differential diagnoses include major intracranial, cervical, spinal, thoracic, abdominal, pelvic and neurologic injury. Fracture, contusion, sprain, strain, laceration, abrasions included as well. ER treatment provided: See below Diagnostics interpreted by me: ECG: none Cardiac Monitoring: An order was placed for continuous cardiac monitoring. The monitor shows a rate of 74 with Sinus rhythm. Laboratory studies: As stated above and show below. Imaging studies: X-rays show lesser troches fracture CT shows: Acute displaced avulsion fracture of the lesser trochanter redemonstra ladan. Subtle fracture line involves the posterior cortex of the femur at the level of the lesser trochanter. Consultation(s): This with Bull Carrero and Dr. 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 HLD (hyperlipidemia) Hypothyroidism Osteoporosis Restrictive lung disease Surgical History H/O hernia repair x 2 History of cataract extraction History of left hemicolectomy 02/04/05 due to Colon CA History of tonsillectomy and adenoidectomy Family History Father , age 78 Lymphoma Mother , age 89 Myocardial infarction Coronary heart disease Stroke Dementia Brother , age 52 Suicide Grandfather Coronary heart disease Grandmother Coronary heart disease Social History Smoking Status: Former smoker Cigarettes Per Day: 50 pack yr history; Second Hand Exposure: No; Hx Alcohol Use: No Hx Substance Use: No Preferred Language: Wallisian Communication Ability: Effective Acid Cutter Required: No Beliefs That Will Affect Care: Rastafari Rastafari Beliefs: Spiritism marital status: / Current Living Situation: Alone Current Living Situation Comment: Condo w/daytime caregivers current occupational status: retired 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 [employer] Feels Safe at Home: Yes Assistive Devices: Glasses and Oxygen - at Night Allergies Allergies Allergy/AdvReac Type Severity Reaction Status Date / Time pravastatin Allergy Intermediate muscle Verified 07/01/20 15:34 aches zolpidem AdvReac Intermediate psychotic Verified 07/01/20 15:34 response Home Meds Home Medications Medication Instructions Recorded Confirmed acetaminophen [Tylenol] 650 mg PO Q6H PRN 07/01/20 07/01/20 bupropion HCl 150 mg PO QAM 07/01/20 07/01/20 calcium carbonate-vitamin D3 2 tab PO QAM 07/01/20 07/01/20 [Calcium 600 + D(3)] cephalexin 500 mg PO BID 07/01/20 07/01/20 fluoxetine 40 mg PO QAM 07/01/20 07/01/20 levothyroxine 125 mcg PO QAM 07/01/20 07/01/20 metoprolol succinate 25 mg PO QAM 07/01/20 07/01/20 minocycline 100 mg PO QAM 07/01/20 07/01/20 Previous Rx's Medication Instructions Recorded aspirin 81 mg PO QAM #90 tab 05/11/20 folic acid 1 mg PO QAM #30 tab 05/11/20 metronidazole 1 applic TOPICAL BID #45 g 05/11/20 Results & Data (ED) Vital Signs Vital Signs - 24 hr 07/01/20 13:13 07/01/20 13:16 07/01/20 13:20 Temperature 36.5 C Temperature Source Oral Pulse Rate 88 88 90 Pulse Rate from SpO2 Sensor 89 89 Respiratory Rate 22 22 20 Respiratory Effort / Characteristics Non-Labored Respiratory Depth Normal Blood Pressure 159/118 H 159/118 H Blood Pressure Mean 137 131 Pulse Oximetry 96 95 95 Oxygen Delivery Method Room Air Sepsis Recent Fever Within 48 Hours No Sepsis New/Unexplained Change in Mental Status No Sepsis Action Taken by Nursing No Action Required 07/01/20 13:30 07/01/20 14:00 07/01/20 14:30 Temperature Temperature Source Pulse Rate 86 87 87 Pulse Rate from SpO2 Sensor Respiratory Rate 21 23 19 Respiratory Effort / Characteristics Respiratory Depth Blood Pressure Blood Pressure Mean Pulse Oximetry Oxygen Delivery Method Sepsis Recent Fever Within 48 Hours Sepsis New/Unexplained Change in Mental Status Sepsis Action Taken by Nursing 07/01/20 14:46 07/01/20 15:00 07/01/20 15:30 Temperature Temperature Source Pulse Rate 75 72 68 Pulse Rate from SpO2 Sensor Respiratory Rate 20 19 16 Respiratory Effort / Characteristics Respiratory Depth Blood Pressure 154/81 H 129/67 121/61 Blood Pressure Mean 92 87 84 Pulse Oximetry Oxygen Delivery Method Sepsis Recent Fever Within 48 Hours Sepsis New/Unexplained Change in Mental Status Sepsis Action Taken by Nursing 07/01/20 16:00 Temperature Temperature Source Pulse Rate 70 Pulse Rate from SpO2 Sensor Respiratory Rate 24 Respiratory Effort / Characteristics Respiratory Depth Blood Pressure 121/62 Blood Pressure Mean 80 Pulse Oximetry Oxygen Delivery Method Sepsis Recent Fever Within 48 Hours Sepsis New/Unexplained Change in Mental Status Sepsis Action Taken by Nursing Laboratory Data Result diagrams: 07/01/20 13:40 07/01/20 13:40 Lab Results 07/01/20 07/01/20 07/01/20 Range/Units 13:40 13:40 13:40 WBC 9.66 (4.8-10.8) K/uL RBC 4.95 (4.2-5.4) M/uL Hgb 13.8 (12.0-16.0) g/dL Hct 42.4 (37-47) % MCV 85.7 (80-100) fL MCH 27.9 (25-34) pg MCHC 32.5 (32-36) g/dL RDW Std Deviation 44.9 (36.4-46.3) fL RDW Coeff of [place] 14.3 (11.5-14.5) % Plt Count 250 (130-400) K/uL MPV 10.4 (7.4-10.4) fL Immature Gran % (Auto) 0.8 % Neut % (Auto) 87.9 % Lymph % (Auto) 4.3 % [place] % (Auto) 5.9 % Eos % (Auto) 1.0 % Baso % (Auto) 0.1 % Neut # (Auto) 8.48 H (1.4-6.5) K/uL Lymph # (Auto) 0.42 L (1.2-3.4) K/uL [place] # (Auto) 0.57 (0.11-0.59) K/uL Eos # (Auto) 0.10 (0-0.5) K/uL Baso # (Auto) 0.01 (0-0.2) K/uL Immature Gran # (Auto) 0.08 H (0.00-0.02) K/uL PT 11.0 (9.0-12.0) Seconds INR 1.0 (0.9-1.1) APTT 26.0 (21.0-31.0) Seconds PTT Ratio 0.9 Sodium 137 (136-145) mmol/L Potassium 4.0 (3.5-5.1) mmol/L Chloride 102 (98-107) mmol/L Carbon Dioxide 30 (21-32) mmol/L Anion Gap 5.0 (3-11) BUN 12 (7-18) mg/dl Creatinine 1.13 (0.6-1.2) mg/dl Est Cr Clr Drug Dosing 28.5 ml/min Est GFR ( Amer) 50.3 Est GFR (Non-Af Amer) 43.4 BUN/Creatinine Ratio 10.6 (10-20) Glucose 84 (70-99) mg/dl Calcium 9.5 (8.5-10.1) mg/dl COVID-19 Eval Order 07/01/20 Range/Units 17:18 WBC (4.8-10.8) K/uL RBC (4.2-5.4) M/uL Hgb (12.0-16.0) g/dL Hct (37-47) % MCV (80-100) fL MCH (25-34) pg MCHC (32-36) g/dL RDW Std Deviation (36.4-46.3) fL RDW Coeff of Glen (11.5-14.5) % Plt Count (130-400) K/uL MPV (7.4-10.4) fL Immature Gran % (Auto) % Neut % (Auto) % Lymph % (Auto) % [place] % (Auto) % Eos % (Auto) % Baso % (Auto) % Neut # (Auto) (1.4-6.5) K/uL Lymph # (Auto) (1.2-3.4) K/uL [place] # (Auto) (0.11-0.59) K/uL Eos # (Auto) (0-0.5) K/uL Baso # (Auto) (0-0.2) K/uL Immature Gran # (Auto) (0.00-0.02) K/uL PT (9.0-12.0) Seconds INR (0.9-1.1) APTT (21.0-31.0) Seconds PTT Ratio Sodium (136-145) mmol/L Potassium (3.5-5.1) mmol/L Chloride (98-107) mmol/L Carbon Dioxide (21-32) mmol/L Anion Gap (3-11) BUN (7-18) mg/dl Creatinine (0.6-1.2) mg/dl Est Cr Clr Drug Dosing ml/min Est GFR ( Amer) Est GFR (Non-Af Amer) BUN/Creatinine Ratio (10-20) Glucose (70-99) mg/dl Calcium (8.5-10.1) mg/dl COVID-19 Eval [facility] Medications Discontinued Medications Acetaminophen (Acetaminophen 325 Mg Tab) 650 mg PO NOW STA Stop: 07/01/20 14:39 Last Admin: 07/01/20 14:43 Dose: 650 mg Documented by: [id number] Discharge Plan Visit Data Chief Complaint: Fall ED Provider: Juan R Mahajan Discharge Problem: Closed hip fracture, Fall Forms Stand Alone Forms: [facility] Prescriptions Prescriptions: No Action aspirin 81 mg Tablet,Delayed Release (Dr/Ec) 81 mg PO QAM Qty: 90 RF: 0 folic acid 1 mg Tablet 1 mg PO QAM Qty: 30 RF: 1 metronidazole 0.75 % gel 1 applic TOPICAL BID Qty: 45 RF: 0 cephalexin 500 mg capsule 500 mg PO BID RF: 0 levothyroxine 125 mcg Tablet 125 mcg PO QAM RF: 0 minocycline 100 mg capsule 100 mg PO QAM RF: 0 metoprolol succinate 25 mg tablet extended release 24 hr 25 mg PO QAM RF: 0 fluoxetine 20 mg capsule 40 mg PO QAM RF: 0 bupropion HCl 150 mg tablet extended release 24 hr 150 mg PO QAM RF: 0 calcium carbonate-vitamin D3 [Calcium 600 + D(3)] 600 mg(1,500mg) -400 unit tablet 2 tab PO QAM RF: 0 acetaminophen [Tylenol] 325 mg Tablet 650 mg PO Q6H PRN (Reason: Pain) RF: 0 Discharge Problem: Closed hip fracture Qualifiers: Encounter type: initial encounter Laterality: right Qualified Code(s): S72.001A - Fracture of unspecified part of neck of right femur, initial encounter for closed fracture Fall Qualifiers: Encounter type: initial encounter Qualified Code(s): W19.XXXA - Unspecified fall, initial encounter
[2020-07-01 14:07] LABS: Basophils # (auto) 0.01 K/uL (0-0.2); Basophils % (auto) 0.1 %; Hematocrit (blood only) 42.4 % (37-47); Hemoglobin 13.8 g/dL (12.0-16.0); Immature Granulocytes # (auto) 0.08 K/uL (0.00-0.02); Immature Granulocytes % (auto) 0.8 %; Lymphocytes # (auto) 0.42 K/uL (1.2-3.4); Lymphocytes % (auto) 4.3 %; Mean Corpuscular Hemoglobin 27.9 pg (25-34); Mean Corpuscular Hgb Conc 32.5 g/dL (32-36); Mean Corpuscular Volume 85.7 fL (80-100); Mean Platelet Volume 10.4 fL (7.4-10.4); Monocytes # (auto) 0.57 K/uL (0.11-0.59); Monocytes % (auto) 5.9 %; Neutrophils # (auto) 8.48 K/uL (1.4-6.5); Neutrophils % (auto) 87.9 %; Platelet Count 250 K/uL (130-400); RDW Coefficient of Variation 14.3 % (11.5-14.5); RDW Standard Deviation 44.9 fL (36.4-46.3); Red Blood Count 4.95 M/uL (4.2-5.4); White Blood Count 9.66 K/uL (4.8-10.8)
[2020-07-01 14:24] LABS: Partial Thromboplastin Ratio 0.9
[2020-07-01 14:29] LABS: BUN Creatinine Ratio 10.6 (10-20); Calcium 9.5 mg/dl (8.5-10.1); Creatinine Clr Calc Pharmacy 28.5 ml/min; Est GFR (African American) 50.3; Est GFR (Non-African American) 43.4
[2020-07-01] MEDS ORDERED: ACETAMINOPHEN 325 MG TAB PO STA (14:38)
--- NOTE | 2020-07-01 14:39 | XRay Report ---
XR femur RT 2V routine CLINICAL HISTORY: fall r mid femur pain COMPARISON: June 2018 DISCUSSION: Osteoarthritic changes are present within the knee. There is interval development of an a vulsion fracture of the lesser trochanter. No additional femoral fractures are visualized. IMPRESSION: 1. Interval development of a lesser trochanteric avulsion fracture 2. Osteoarthritic changes involving the hip and knee ACT 112: Negative or not required by law. Electronically signed by: Linus Pavon M.D. 07/01/2020 2:38 PM
--- NOTE | 2020-07-01 14:42 | XRay Report ---
XR hip RT 2V w pelvis CLINICAL HISTORY: Right hip pain. COMPARISON STUDY: None. FINDINGS: There is an avulsion fracture at the base of the lesser trochanter within the proximal righ t femur. This demonstrates 7 mm of distraction. There is moderate osteoarthritis within the bilateral hips. No fractures identified within the pelvis or left hip. The sacrum appears intact. IMPRESSION: Mildly displaced avulsion fracture at the lesser trochanter of the proximal right femur. ACT 112: Negative or not required by law. Electronically signed by: Morgan Yoo M.D. 07/01/2020 2:41 PM
--- NOTE | 2020-07-01 16:28 | CT Scan Report ---
CT SCAN OF THE BRAIN WITHOUT IV CONTRAST CLINICAL HISTORY: Fall. COMPARISON STUDY: CT of the brain dated 05/03/2020. TECHNIQUE: Unenhanced axial CT scan of the brain is performed from the vertex to the skull base. A do se lowering technique was utilized adhering to the principles of ALARA. CT DOSE: 638.56 mGycm FINDINGS: Brain parenchyma: There are age-related involutional changes noting advanced confluent subcortical a nd periventricular microangiopathic change. There is no hemorrhage, mass effect, or evidence of acute territorial ischemia by CT criteria. Chronic lacunar infarcts are present within the basal ganglia a nd thalami bilaterally. Kim-white matter differentiation is preserved. No extra-axial fluid collecti on is seen. Ventricles, sulci, cisterns: Prominent secondary to involutional change. Intracranial vasculature: There is atherosclerotic calcification of the cavernous carotid and vertebr al arteries. Calvarium: The skeletal structures are osteopenic. No depressed calvarial fracture is identified. Sinuses and mastoids: The visualized paranasal sinuses are clear. The mastoid air cells are well pneu matized. Orbits: The bony orbits are grossly intact. There are bilateral ocular lens implants. IMPRESSION: Senescent changes as above with no hemorrhage, mass effect, or evidence of acute territor ial ischemia by CT criteria. ACT 112: Negative or not required by law. Electronically signed by: James Small M.D. 07/01/2020 4:27 PM
--- NOTE | 2020-07-01 16:37 | CT Scan Report ---
CT hip RT wo con HISTORY: 89 years-old Female r hip pain . Acute right-sided hip pain COMPARISON: Pelvis and right femur radiographs of same day TECHNIQUE: Multiple axial CT images of the right hip were obtained without the use of IV contrast. A dose lowering technique was used consistent with the principals of ALARA. FINDINGS: Air is noted within the vaginal cuff. Unremarkable urinary bladder. Mild gaseous distention of the re ctum. Calcified plaque of the femoral artery. Subcutaneous edema with contusion lateral to the right hip. Moderate osteoarthritis of the right hip. Demineralized appearance of the bones. Moderate to severe d egeneration of the pubic symphysis. There is an acute avulsion fracture involving the lesser trochant er which is displaced anteromedially 2.5 cm. Subtle associated fracture line is noted within the post erior cortex of the proximal femur at the level of the lesser trochanter. The greater trochanter appe ars intact. No suspicious bone lesion. Evaluation of the soft tissues demonstrates reactive edema/hem orrhage adjacent to the acute fracture. Trace femoral acetabular joint effusion. Irregularity/discont inuity of the myotendinous junction iliopsoas suggest probable tear. IMPRESSION: 1. Acute displaced avulsion fracture of the lesser trochanter redemonstrated. Subtle fracture line in volves the posterior cortex of the femur at the level of the lesser trochanter. 2. No suspicious bone lesion or additional acute fracture identified. No dislocation. 3. Moderate right hip osteoarthritis. 4. Soft tissue contusion lateral to the right hip with probable tear of the myotendinous junction [place] opsoas. ACT 112: Negative or not required by law. The above report was generated using voice recognition software. It may contain grammatical, syntax o r spelling errors. Electronically signed by: Toi Leal M.D. 07/01/2020 4:35 PM
--- NOTE | 2020-07-01 16:40 | CT Scan Report ---
CT cervical spine wo con CT DOSE: 373.85 mGycm CLINICAL HISTORY: 89 years-old Female with fall. Acute neck pain status post fall COMPARISON: Head CT of same day, CT cervical spine 05/03/2020 TECHNIQUE: Multiple axial CT images of the cervical spine were obtained without contrast. A dose low ering technique was utilized adhering to the principles of ALARA. FINDINGS: Stepwise grade 1 anterolisthesis C3 on C4, C4 on C5 and C5 on C6 likely secondary to long-standing fa cet arthrosis. There is severe multilevel facet arthrosis with moderate spondylitic spurring. Multile darvin disc space narrowing, moderate to severe at C6-C7 and moderate at C5-C6. No acute fracture or sub luxation. Evaluation of the central canal and neuroforamina is better evaluated by MRI. Note is made of multilevel foraminal stenosis. Mastoid air cells are clear. No prevertebral soft tissue swelling. Calcified plaque of the carotid bulbs. No pneumothorax. Emphysema. IMPRESSION: No acute cervical spine fracture or subluxation. ACT 112: Negative or not required by law. The above report was generated using voice recognition software. It may contain grammatical, syntax o r spelling errors. Electronically signed by: Toi Leal M.D. 07/01/2020 4:39 PM
--- NOTE | 2020-07-01 17:23 | History & Physical Report ---
Date of Service July 01, 2020 Assessment & Plan (1) Fall: (2) Closed hip fracture: This is a very pleasant 89-year-old female who has significant past medical history of emphysema, HTN, HLD, CKD stage III, depression with anxiety, hypothyroidism, history of SVT, osteoporosis, recurrent falls, history of PE, history of embolic CVA, cognitive decline who presents to ED after sustaining a mechanical fall prior to arrival. Hip CT: acute displaced avulsion fracture of the lesser trochanteric, subtle fracture line involves the posterior cortex of the femur at the level of the lesser trochanter. Soft tissue contusion lateral to the right hip with probable tear of the myotendinous junction iliopsoas. Admit to med/surg consult orthopedics NPO after midnight start gentle IVF at 00:00 60cc/hr LR x 1 L bed rest, hip fx protocol rodriguez in place Oxycodone 5mg moderate pain, IV Morphine severe pain CXR and EKG reviewed - prior to fall pt able to ambulate up to 4 METS w/o ischemic sx Recommend continue with ASA uninterrupted Discussed with daughter and patient at bedside and discussed risks and benefits. Patient with daughter agreement want to pursue surgical intervention as patient wishes to ambulate again and for overall QOL (3) Skin tear of left lower leg without complication: 2/2 to fall pt has been treated with keflex 500mg bid as outpt x 7 days obtain wound culture and consult wound care nurse no s/sx of infection (4) History of CVA (cerebrovascular accident): admitted 05/03-05/11, dx with multiple acute embolic cva seen and eval by neuro - recommend asa only, statin intolerant (5) Paroxysmal SVT (supraventricular tachycardia): Continue metoprolol EKG reviewed, normal sinus rhythm (6) Hypertension: blood pressure controlled continue metoprolol (7) CKD (chronic kidney disease) stage 3, GFR 30-59 ml/min: baseline cr 1.0 bun/cr 12 and 1.13 gentle IVF after midnight monitor meds (8) COPD with emphysema: No acute exacerbation, 1.5 L of oxygen at bedtime (9) Hypothyroidism: Continue levothyroxine (10) Depression: Continue Prozac and Wellbutrin (11) History of pulmonary embolism: History of PE/DVT Will give SQ heparin 5000 units x 1 dose this evening Patient high risk given immobilization, fracture and prior hx Recommend reevaluation in a.m. need for additional DVT prophylaxis pre or postop (12) DVT prophylaxis: SQ Heparin x 1 dose this evening, re eval in a.m. Disposition: admit to med/surg Follow up: PCP Dr. Encinas upon discharge Pt was seen and examined in collaboration with Dr. Meza, please see addendum (13) DNR (do not resuscitate): History of Present Illness Chief Complaint: Fall prior to arrival Primary Care Provider: [facility] This is a very pleasant 89-year-old female who has significant past medical history of emphysema, HTN, HLD, CKD stage III, depression with anxiety, hypothyroidism, history of SVT, osteoporosis, recurrent falls, history of PE, history of embolic CVA, cognitive decline who presents to ED after sustaining a mechanical fall prior to arrival. Of significance patient was recently h ospitalized 05/03-05/11 secondary to multiple acute embolic CVAs. She was seen and evaluated by neurology and started on ASA. [employer] not a good candidate for oral anticoagulation. She is statin intolerant therefore this was not started. She was seen and evaluated by palliative care due to frequent falls. She was subsequently transitioned to [facility] where daughter feels she has been doing fairly well physically and cognitively. She was having a good day today when she was walking with her walker, "and sometimes I just walk too fast." She got ahead of herself and sustained a mechanical fall on her right side. The fall was witnessed, she did not lose her head or lose consciousness. Currently she complains of right hip pain. She denies any recent fever, chills, sweats, lightheadedness, dizziness, chest pain, shortness of breath, cough, nausea, vomiting, abdominal pain. He does currently have Rodriguez catheter in place. At assisted-living facility she is fairly mobile with the use of her walker. When walking the length of the hallway she does not exhibit any chest pain or shortness of breath. She wishes to return to this mobile state again. Daughter is at bedside. Patient states she has been more depressed lately and daughter confirms, "she just said this prior to her fall." She denies any SI or HI. Daughter also elicits frequent falls. She sustained a fall approximately 1 week ago causing a skin tear to the left pretibial area. She is currently on oral Keflex for this. In ED she remained hemodynamically stable. Hip CT revealed acute displaced avulsion fracture of the lesser trochanteric, subtle fracture line involves the posterior cortex of the femur at the level of the lesser trochanter. Also soft tissue contusion lateral to the right hip with probable tear of the myotendinous junction iliopsoas. ER provider spoke with on-call orthopedic Dr. Kessler who recommended admission and likely surgical intervention in a.m. Her CBC and CMP were generally unremarkable. Allergies Allergy/AdvReac Type Severity Reaction Status Date / Time pravastatin Allergy Intermediate muscle Verified 07/01/20 15:34 aches zolpidem AdvReac Intermediate psychotic Verified 07/01/20 15:34 response Home Medications Home Medications Medication Instructions Recorded Confirmed Type aspirin 81 mg PO QAM #90 tab 05/11/20 07/01/20 Rx folic acid 1 mg PO QAM #30 tab 05/11/20 07/01/20 Rx metronidazole 1 applic TOPICAL BID #45 g 05/11/20 07/01/20 Rx acetaminophen [Tylenol] 650 mg PO Q6H PRN 07/01/20 07/01/20 History bupropion HCl 150 mg PO QAM 07/01/20 07/01/20 History calcium carbonate-vitamin D3 2 tab PO QAM 07/01/20 07/01/20 History [Calcium 600 + D(3)] cephalexin 500 mg PO BID 07/01/20 07/01/20 History fluoxetine 40 mg PO QAM 07/01/20 07/01/20 History levothyroxine 125 mcg PO QAM 07/01/20 07/01/20 History metoprolol succinate 25 mg PO QAM 07/01/20 07/01/20 History minocycline 100 mg PO QAM 07/01/20 07/01/20 History Past Med/Surg History Medical History (Updated 07/01/20 @ 19:55 by Leatha Johnson PA-C) CKD (chronic kidney disease) stage 3, GFR 30-59 ml/min Colon cancer Dependence on nocturnal oxygen therapy History of colon cancer History of tobacco abuse quit in 97, 50 pack year hx. HLD (hyperlipidemia) Hypothyroidism Osteoporosis Restrictive lung disease Surgical History H/O hernia repair x 2 History of cataract extraction History of left hemicolectomy 02/04/05 due to Colon CA History of tonsillectomy and adenoidectomy Family History Father , age 78 Lymphoma Mother , age 89 Myocardial infarction Coronary heart disease Stroke Dementia Brother , age 52 Suicide Grandfather Coronary heart disease Grandmother Coronary heart disease Social History Smoking Status: Former smoker Cigarettes Per Day: 50 pack yr history; Second Hand Exposure: No; Hx Alcohol Use: No Hx Substance Use: No Preferred Language: Swedish Communication Ability: Impaired Communication Ability Comment: dementia Interface Analyst Required: No Beliefs That Will Affect Care: Congregational Congregational Beliefs: Confucianist marital status: / Current Living Situation: Personal Care Facility Current Living Situation Comment: [facility] current occupational status: 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 [employer] Other Information That Helps Us Care for You: No Feels Safe at Home: Yes Safety Concerns: Feels Safe At This Time Assistive Devices: Glasses, Hearing Aid - Bilateral, Oxygen - at Night and Walker Review of Systems Review of Systems: All systems reviewed & are unremarkable except as noted in HPI & below Physical Exam Physical Exam: Constitutional: Elderly, female, WD/WN, vitals as above, NAD, sitting up in bed, pleasant, conversing easily Head: Normocephalic, Atraumatic Eyes: PERRL, conjunctivae normal, anicteric sclerae ENMT: external ear and nose normal, oropharynx normal Neck: trachea midline, no thyromegaly normal visual inspection Respiratory: normal respiratory effort, lungs clear to auscultation, no wheeze, rales, rhonchi. Normal insp/exp effort, no accessory muscle use Cardiovascular: RRR, 1/6 CULLEN noted cardiac apex, no edema but ashen discoloration to pretibial surface. vessels: no JVD or carotid bruit Chest: normal inspection of chest Abdomen: normal bowel sounds, soft, nontender, no hepatosplenomegaly Musculoskeletal: no cyanosis or clubbing, active range of motion to bilateral upper extremities, lower extremity strength and range of motion not tested secondary to fracture Skin: Left pretibial skin tear/ulceration, warm and dry normal turgor Neurologic: PERRL, EOMI, accommodation nl, no face palsy, no dysarthria CN's II-XI intact bilaterally and moves all extremities except RLE not tested Psychiatric: A+Ox3, euthymic affect Lymphatic: no cervical or axillary lymphadenopathy : Rodriguez catheter in place draining clear yellow urine Results & Data Results & Data ([facility]) Vital Signs (Past 12 Hours) Vital Signs Temp Pulse Resp BP Pulse Ox 07/01/20 16:00 70 24 121/62 07/01/20 15:30 68 16 121/61 07/01/20 15:00 72 19 129/67 07/01/20 14:46 75 20 154/81 H 07/01/20 14:30 87 19 07/01/20 14:00 87 23 07/01/20 13:30 86 21 07/01/20 13:20 36.5 C 90 20 159/118 H 95 07/01/20 13:16 88 22 95 07/01/20 13:13 88 22 159/118 H 96 Laboratory Results Short CBC 07/01/20 Range/Units 13:40 WBC 9.66 (4.8-10.8) K/uL Hgb 13.8 (12.0-16.0) g/dL Hct 42.4 (37-47) % Plt Count 250 (130-400) K/uL BMP 07/01/20 13:40 Sodium 137 Potassium 4.0 Chloride 102 Carbon Dioxide 30 BUN 12 Creatinine 1.13 Glucose 84 Calcium 9.5 Diagnostic Findings CXR: IMPRESSION: Emphysematous change with no acute cardiopulmonary abnormality. Hip CT: IMPRESSION: 1. Acute displaced avulsion fracture of the lesser trochanter redemonstrated. Subtle fracture line involves the posterior cortex of the femur at the level of the lesser trochanter. 2. No suspicious bone lesion or additional acute fracture identified. No dislocation. 3. Moderate right hip osteoarthritis. 4. Soft tissue contusion lateral to the right hip with probable tear of the myotendinous junction iliopsoas. Head CT: IMPRESSION: Senescent changes as above with no hemorrhage, mass effect, or evidence of acute territorial ischemia by CT criteria. C spine CT: IMPRESSION: No acute cervical spine fracture or subluxation. Hip/pelvis xray: IMPRESSION: Mildly displaced avulsion fracture at the lesser trochanter of the proximal right femur. Femur Xray: IMPRESSION: 1. Interval development of a lesser trochanteric avulsion fracture 2. Osteoarthritic changes involving the hip and knee Medications Administered Discontinued Medications Acetaminophen (Acetaminophen 325 Mg Tab) 650 mg PO NOW STA Stop: 07/01/20 14:39 Last Admin: 07/01/20 14:43 Dose: 650 mg Documented by: [id number] Oxycodone HCl (Oxycodone Hcl Ir 5 Mg Tab (Immediate Release)) 5 mg PO NOW STA Stop: 07/01/20 18:37 Last Admin: 07/01/20 18:43 Dose: 5 mg Documented by: [id number] ECG Rate (beats per minute): 75 Rhythm: normal sinus Code Status & VTE Plan Code Status DNR/DNI confirmed with daughter VTE Prophylaxis Plan VTE Prophylaxis will be ordered: Yes Supervising Physician Co-Signing Physician Notes Attending Addendum: care coordinated with JUDITH Luna please refer to her notes for full details, I agree with her notes patient seen and examined, records reviewed by myself as well on exam, patient seen sleeping but easily awakened states she feels fine, has mild discomfort on the right hip denies chest pain, dyspnea, palpitations, dizziness, nausea no other symptoms VS noted and reviewed oriented x 1, not in distress, speaks in sentences with no effort nor accessory muscle use normal rate, regular rhythm, no murmurs clear breath sounds bilaterally non distended, soft, nontender no bipedal edema, erythema, warmth no neuro deficits WBC9.6 Hg 13.8 Crea 1.1 ASSESSMENT AND PLAN RIGHT HIP FRACTURE, S/P MECHANICAL FALL CT right hip: 1. Acute displaced avulsion fracture of the lesser trochanter redemonstrated. Subtle fracture line involves the posterior cortex of the femur at the level of the lesser trochanter. 2. No suspicious bone lesion or additional acute fracture identified. No dislocation. 3. Moderate right hip osteoarthritis. 4. Soft tissue contusion lateral to the right hip with probable tear of the myotendinous junction iliopsoas. Ortho consulted high risk for cardio pulmonary complications perioperatively due to age, comorbities no contraindication for orthopedic surgery HISTORY OF PE will need pharmacologic anticoagulation HISTORY OF SVT EKG sinus rhythm CKD 3 crea at baseline monitor HISTORY OF CVA on ASA COPD not in exacerbation other diagnoses and plan of care as per JUDITH Mejia's notes Chance Meza MD (1) Closed hip fracture Encounter type: initial encounter Laterality: right Qualified Code(s): S72.001A - Fracture of unspecified part of neck of right femur, initial encounter for closed fracture (2) COPD with emphysema Emphysema type: unspecified Qualified Code(s): J43.9 - Emphysema, unspecified (3) Fall Encounter type: initial encounter Qualified Code(s): W19.XXXA - Unspecified fall, initial encounter
[2020-07-01] MEDS ORDERED: MoRPHine SULFATE 4 MG/ML 1 ML CARP\\VIAL IV PRN (17:27)
[2020-07-01] MEDS ORDERED: MoRPHine SULFATE 2 MG/ML CARP IV PRN ×2 (17:27→20:01)
--- NOTE | 2020-07-01 17:33 | XRay Report ---
SINGLE VIEW CHEST CLINICAL HISTORY: Preoperative examination FINDINGS: An AP, portable, supine chest radiograph is compared to study dated 05/03/2020. Correlation is made with chest CT dated 09/26/2018. The examination is degraded by portable technique and patient rotation. The cardiomediastinal silhouette is unremarkable noting atherosclerotic calcification of the thoracic aorta. Emphysema and chronic interstitial thickening is similar to previous. There is bi basilar scarring/atelectasis. No airspace consolidation or large pleural effusion is identified. No p neumothorax is seen. The skeletal structures are osteopenic. The bony thorax is grossly intact. IMPRESSION: Emphysematous change with no acute cardiopulmonary abnormality. ACT 112: Negative or not required by law. Electronically signed by: James Small M.D. 07/01/2020 5:31 PM
[2020-07-01] MEDS ORDERED: oxyCODONE HCL IR 5 MG TAB (IMMEDIATE RELEASE) PO STA (18:36)
[2020-07-01] MEDS ORDERED: bisacodyL 10 MG SUPP PR PRN (20:01)
[2020-07-01] MEDS ORDERED: ALUMINUM/MAGNESIUM SUSP 30 ML UDC PO PRN (20:01)
[2020-07-01] MEDS ORDERED: MAGNESIUM HYDROXIDE SUSP 30 ML UDC PO PRN ×2 (20:01)
[2020-07-01] MEDS ORDERED: ONDANSETRON INJ 2 MG/ML 2 ML VIAL IV PRN (20:01)
[2020-07-01] MEDS ORDERED: NALOXONE HCL 0.4 MG/1 ML VIAL/CARP IV PRN (20:01)
[2020-07-01] MEDS ORDERED: ACETAMINOPHEN 325 MG TAB PO PRN (20:01)
[2020-07-01] MEDS ORDERED: POLYETHYLENE (MIRALAX) 17 GM PACK PO PRN (20:01)
[2020-07-01] MEDS ORDERED: HEPARIN SOD 5,000 UNIT/0.5 ML VIAL SQ SCH (22:00)
[2020-07-01] MEDS: metroNIDAZOLE 0.75% TOPICAL GEL 45 GM TUBE TOP SCH (22:08)
[2020-07-01] MEDS: DOCUSATE SODIUM/SENNA 50/8.6MG TAB PO SCH (22:13)
[2020-07-01] MEDS: oxyCODONE HCL IR 5 MG TAB (IMMEDIATE RELEASE) PO PRN (22:14)
[2020-07-01] MEDS: [UNRECOGNIZED DRUG - REMARK] SCH (22:49)
[2020-07-02] MEDS ORDERED: LACTATED RINGER'S 1,000 ML IV SCH
[2020-07-02] MEDS: LEVOTHYROXINE SODIUM 125 MCG TABLET PO SCH (05:06)
[2020-07-02] MEDS ORDERED: ceFAZolin 2000MG 2,000 MG/15 ML SYR IV SCH (06:00)
[2020-07-02] MEDS: [UNRECOGNIZED DRUG - REMARK] SCH ×2 (07:21→15:09)
[2020-07-02] MEDS: ASPIRIN 81 MG ECTAB PO SCH (08:04)
[2020-07-02] MEDS: CALCIUM 600MG + VIT D 400 IU TAB PO SCH (08:04)
[2020-07-02] MEDS: FOLIC ACID 1 MG TAB PO SCH (08:04)
[2020-07-02] MEDS: METOPROLOL SUCC 25MG EXT REL TAB PO SCH (08:04)
[2020-07-02] MEDS: buPROPion XL 150 MG TABCR PO SCH (08:04)
[2020-07-02] MEDS: FLUoxetine HCL 20 MG CAP PO SCH (08:04)
[2020-07-02] MEDS: metroNIDAZOLE 0.75% TOPICAL GEL 45 GM TUBE TOP SCH ×2 (08:05→22:01)
[2020-07-02 09:15] LABS: Hematocrit (blood only) 37.6 % (37-47); Hemoglobin 12.2 g/dL (12.0-16.0); Mean Corpuscular Hgb Conc 32.4 g/dL (32-36); Mean Corpuscular Volume 86.4 fL (80-100); Mean Platelet Volume 10.5 fL (7.4-10.4); Platelet Count 229 K/uL (130-400); RDW Coefficient of Variation 14.3 % (11.5-14.5); RDW Standard Deviation 45.1 fL (36.4-46.3); Red Blood Count 4.35 M/uL (4.2-5.4); White Blood Count 8.92 K/uL (4.8-10.8)
[2020-07-02 09:48] LABS: BUN Creatinine Ratio 12.9 (10-20); Calcium 8.5 mg/dl (8.5-10.1); Creatinine Clr Calc Pharmacy 34.6 ml/min; Est GFR (African American) 63.6; Est GFR (Non-African American) 54.9; Potassium 4.2 mmol/L (3.5-5.1)
--- NOTE | 2020-07-02 11:39 | Electrocardiogram Report ---
Test Reason : Blood Pressure : / mmHG Vent. Rate : 075 BPM Atrial Rate : 075 BPM P-R Int : 160 ms QRS Dur : 076 ms QT Int : 412 ms P-R-T Axes : 051 -10 013 degrees QTc Int : 460 ms Normal sinus rhythm Possible Inferior infarct (cited on or before 03-MAY-2020) Abnormal ECG When compared with ECG of 03-MAY-2020 12:36, No significant change was found Confirmed by Flakito Zelaya ([id number]) on 07/02/2020 11:38:48 AM Referred By: [facility] Confirmed By:Flakito Zelaya
--- NOTE | 2020-07-02 11:43 | Orthopedic Consultation ---
Date of Consultation July 02, 2020 Assessment & Plan (1) Closed hip fracture: I have spoken with the patient's daughter who states that she does ambulate fairly well with a walker at her place of residence. She has had an increased amount of falls of late. We discussed the likelihood of surgery for her mother and they are in agreement. Case reviewed with Dr. Kessler. With the cortical extension into the posterior femur at the lesser trochanter area, Dr. Kessler would like to plan for a right TFN. Plan for the OR this afternoon. History of Present Illness Reason for Consultation: Right lesser trochanter avulsion fracture with posterior cortical fracture of the the femur at the lesser trochanter Attending Physician: Queta Benson, History of Present Illness Patient is an 89-year-old white female who resides at [facility]. The patient currently is answering some questions appropriately but does act somewhat confused at times. Her daughter is present as well. History is taken from the chart and her daughter and a little bit from the patient. Patient states that her daughter was leaving after visiting her. She wanted to catch her before she left to tell her something and as she was trying to hurry out the door she lost her footing and fell onto her right side. She had immediate pain in her right groin area and was having difficulty ambulating. Was brought to the emergency room where she was seen by the staff. X-rays were taken. Plain x-rays showed an avulsion fracture of the lesser trochanter. CT scan of the right hip was requested and showed the lesser trochanter avulsion fracture as well as a nondisplaced fracture of the posterior cortex of the femur at the level of the lesser trochanter. The patient was having difficulty ambulating and was admitted to the hospital service. We have been asked to see her for her fracture. Currently she does answer some questions appropriately and is having some pain with movement of the right lower extremity but her pain is fairly controlled when she is still. She appears comfortable at this time. Allergies Allergy/AdvReac Type Severity Reaction Status Date / Time pravastatin Allergy Intermediate muscle Verified 07/01/20 15:34 aches zolpidem AdvReac Intermediate psychotic Verified 07/01/20 15:34 response Home Medications Home Medications Medication Instructions Recorded Confirmed Type aspirin 81 mg PO QAM #90 tab 05/11/20 07/01/20 Rx folic acid 1 mg PO QAM #30 tab 05/11/20 07/01/20 Rx metronidazole 1 applic TOPICAL BID #45 g 05/11/20 07/01/20 Rx acetaminophen [Tylenol] 650 mg PO Q6H PRN 07/01/20 07/01/20 History bupropion HCl 150 mg PO QAM 07/01/20 07/01/20 History calcium carbonate-vitamin D3 2 tab PO QAM 07/01/20 07/01/20 History [Calcium 600 + D(3)] cephalexin 500 mg PO BID 07/01/20 07/01/20 History fluoxetine 40 mg PO QAM 07/01/20 07/01/20 History levothyroxine 125 mcg PO QAM 07/01/20 07/01/20 History metoprolol succinate 25 mg PO QAM 07/01/20 07/01/20 History minocycline 100 mg PO QAM 07/01/20 07/01/20 History Patient History Medical History CKD (chronic kidney disease) stage 3, GFR 30-59 ml/min Colon cancer Dependence on nocturnal oxygen therapy History of colon cancer History of tobacco abuse quit in 97, 50 pack year hx. HLD (hyperlipidemia) Hypothyroidism Osteoporosis Restrictive lung disease Surgical History H/O hernia repair x 2 History of cataract extraction History of left hemicolectomy 02/04/05 due to Colon CA History of tonsillectomy and adenoidectomy Family History Father , age 78 Lymphoma Mother , age 89 Myocardial infarction Coronary heart disease Stroke Dementia Brother , age 52 Suicide Grandfather Coronary heart disease Grandmother Coronary heart disease Social History Smoking Status: Former smoker Cigarettes Per Day: 50 pack yr history; Second Hand Exposure: No; Hx Alcohol Use: No Hx Substance Use: No Preferred Language: Georgian Communication Ability: Impaired Communication Ability Comment: dementia Angular Developer Required: No Beliefs That Will Affect Care: Latter-Day Latter-Day Beliefs: Voodoo marital status: / Current Living Situation: Personal Care Facility Current Living Situation Comment: [facility] current occupational status: retired 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 She is awake and alert with and mildly confused answering some questions appropriately. Focusing on the right lower extremity, leg lengths appear equal comparing to the left. He has moderate pain with internal and external rotation. She has mild pain with flexion of the hip at this time. No pain with extension. Minimal discomfort with abduction and adduction. She is nontender at the right ankle and knee with range of motion of the knee mildly limited only due to causing her pain in the hip and groin. Anklel range of motion within normal limits. Left lower extremity is noted to be nontender at the hip knee and ankle. Denies any pain in the shoulders elbows or wrists. Her ROM motion is within normal limits. Denies any cervical, thoracic, lumbar pain at this time. No gross motor or sensory loss at this time. Distal pulses are equal bilaterally of the upper lowe r extremities. Results & Data ([facility]) Vital Signs (Past 12 Hours) Vital Signs Temp Pulse Resp BP Pulse Ox 07/02/20 08:03 36.7 C 88 16 125/71 95 Diagnostic Findings Patient: YANI BAILEY Date: 07/01/20 MR#: [id number]: [address] [place] [address] Acct ID:[id number]: [facility] Zip: [place] [address] Age: 89Location: ED Sex: FRoom/Bed: Att Phy:Diagnosis: FALL [facility]: [facility] Fam Phy:Interpreting Phy: Wilder Leal Admit Phy: Ordering Phy: Juan R Mahajan DO cc: ~ CT hip RT wo con HISTORY: 89 years-old Female r hip pain . Acute right-sided hip pain COMPARISON: Pelvis and right femur radiographs of same day TECHNIQUE: Multiple axial CT images of the right hip were obtained without the use of IV contrast. A dose lowering technique was used consistent with the principals of ALARA. FINDINGS: Air is noted within the vaginal cuff. Unremarkable urinary bladder. Mild gaseous distention of the rectum. Calcified plaque of the femoral artery. Subcutaneous edema with contusion lateral to the right hip. Moderate osteoarthritis of the right hip. Demineralized appearance of the bones. Moderate to severe degeneration of the pubic symphysis. There is an acute avulsion fracture involving the lesser trochanter which is displaced anteromedially 2.5 cm. Subtle associated fracture line is noted within the posterior cortex of the proximal femur at the level of the lesser trochanter. The greater trochanter appears intact. No suspicious bone lesion. Evaluation of the soft tissues demonstrates reactive edema/hemorrhage adjacent to the acute fracture. Trace femoral acetabular joint effusion. Irregularity/discontinuity of the myotendinous junction iliopsoas suggest probable tear. IMPRESSION: 1. Acute displaced avulsion fracture of the lesser trochanter redemonstrated. Subtle fracture line involves the posterior cortex of the femur at the level of the lesser trochanter. 2. No suspicious bone lesion or additional acute fracture identified. No dislocation. 3. Moderate right hip osteoarthritis. 4. Soft tissue contusion lateral to the right hip with probable tear of the myotendinous junction iliopsoas. (1) Closed hip fracture Encounter type: initial encounter Laterality: right Qualified Code(s): S72.001A - Fracture of unspecified part of neck of right femur, initial encounter for closed fracture
[2020-07-02] MEDS: oxyCODONE HCL IR 5 MG TAB (IMMEDIATE RELEASE) PO PRN (15:08)
--- NOTE | 2020-07-02 17:41 | Anesthesiology Consultation ---
Date of Service July 02, 2020 Assessment & Plan (1) Encounter for pre-operative examination: Chart Review Chart Review: Acceptable Risk for Surgery and Patient NOT seen in Pre Admission Testing Consults Requested none History Surgery Operation Date: 07/02/20 12:55 Proposed Procedures p Trochanteri Nail Right - Ramirez Kessler DO Height/Weight Height: 5 ft 3 in Weight: 60 kg Allergies Allergy/AdvReac Type Severity Reaction Status Date / Time zolpidem AdvReac Intermediate psychotic Verified 07/01/20 15:34 response [place] [employer] AdvReac Verified 07/02/20 17:05 strawberry AdvReac Verified 07/02/20 17:05 Medications Home Medications Medication Instructions Recorded Confirmed Last Taken aspirin 81 mg PO QAM #90 tab 05/11/20 07/01/20 07/01/20 folic acid 1 mg PO QAM #30 tab 05/11/20 07/01/20 07/01/20 metronidazole 1 applic TOPICAL BID #45 g 05/11/20 07/01/20 07/01/20 08:00 acetaminophen [Tylenol] 650 mg PO Q6H PRN 07/01/20 07/01/20 Unknown bupropion HCl 150 mg PO QAM 07/01/20 07/01/20 07/01/20 calcium carbonate-vitamin D3 2 tab PO QAM 07/01/20 07/01/20 07/01/20 [Calcium 600 + D(3)] cephalexin 500 mg PO BID 07/01/20 07/01/20 07/01/20 08:00 fluoxetine 40 mg PO QAM 07/01/20 07/01/20 07/01/20 levothyroxine 125 mcg PO QAM 07/01/20 07/01/20 07/01/20 metoprolol succinate 25 mg PO QAM 07/01/20 07/01/20 07/01/20 minocycline 100 mg PO QAM 07/01/20 07/01/20 07/01/20 Active Medications Generic Name Dose Route Start Last Admin Trade Name Freq PRN Reason Stop Dose Admin Aspirin 81 mg 07/02/20 09:00 07/02/20 08:04 Aspirin 81 Mg Ectab PO 08/01/20 08:59 81 mg QAM DENY Administration Bupropion HCl 150 mg 07/02/20 09:00 07/02/20 08:04 Bupropion Xl 150 Mg Tabcr PO 08/01/20 08:59 150 mg QAM DEYN Administration Fluoxetine HCl 40 mg 07/02/20 09:00 07/02/20 08:04 Fluoxetine Hcl 20 Mg Cap PO 08/01/20 08:59 40 mg QAM DENY Administration Folic Acid 1 mg 07/02/20 09:00 07/02/20 08:04 Folic Acid 1 Mg Tab PO 08/01/20 08:59 1 mg QAM DENY Administration Levothyroxine Sodium 125 mcg 07/02/20 06:30 07/02/20 05:06 Levothyroxine Sodium 125 Mcg Tablet PO 08/01/20 06:29 125 mcg DAILYBB DENY Administration Metoprolol Succinate 25 mg 07/02/20 09:00 07/02/20 08:04 Metoprolol Succ 25mg Ext Rel Tab PO 08/01/20 08:59 25 mg QAM DENY Administration Metronidazole 1 appln 07/01/20 21:00 07/02/20 08:05 Metronidazole 0.75% Topical Gel 45 Gm Tube TOP 07/11/20 20:59 1 appln BID DENY Administration Miscellaneous 1 ea 07/02/20 00:00 07/02/20 15:09 *Minocycline*Order Awaiting Action N/A 08/01/20 00:00 Not Given QS DENY Multivitamins/Minerals 2 tab 07/02/20 09:00 07/02/20 08:04 Calcium 600mg + Vit D 400 Iu Tab PO 08/01/20 08:59 2 tab QAM DENY Administration Oxycodone HCl 5 mg 07/01/20 20:01 07/02/20 15:08 Oxycodone Hcl Ir 5 Mg Tab (Immediate Release) PO 07/15/20 20:00 5 mg Q4H PRN Administration MODERATE Pain (Scale 4,5,6) Senna/Docusate Sodium 2 tab 07/01/20 21:00 07/01/20 22:13 Docusate Sodium/Senna 50/8.6mg Tab PO 07/31/20 20:59 2 tab HS DENY Administration NPO Date Last Intake of Fluids: 07/01/20 Time Last Intake of Fluids: 17:00 Date Last Intake of Solids: 07/01/20 Time Last Intake of Solids: 12:00 Past Medical History Medical History (Updated 07/02/20 @ 17:41 by Maykel Rodrigez MD) CKD (chronic kidney disease) stage 3, GFR 30-59 ml/min Colon cancer 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 HLD (hyperlipidemia) Hypertension Hypothyroidism Osteoporosis Restrictive lung disease Exercise / Class Metabolic Activity III < 4 Walking/Shop/Light housework Past Family History Family History Father , age 78 Lymphoma Mother , age 89 Myocardial infarction Coronary heart disease Stroke Dementia Brother , age 52 Suicide Grandfather Coronary heart disease Grandmother Coronary heart disease Past Surgical History Surgical History H/O hernia repair x 2 History of cataract extraction History of left hemicolectomy 02/04/05 due to Colon CA History of tonsillectomy and adenoidectomy Past Anesthesia History No Hx of Anesthesia Complications and No Family Hx of Anesthesia Complications History of PONV No Hx of PONV and No Hx of Motion Sickness Social History Smoking Status: Former smoker Smoking cigarettes per day: 50 pack yr history Hx Alcohol Use: No Alcohol type: wine alcohol intake frequency: a few times a month Hx Substance Use: No Physical Exam Vital Signs Last Vital Signs Temp 37.3 C 07/02/20 17:35 Pulse 80 07/02/20 17:35 Resp 16 07/02/20 17:35 BP 137/65 07/02/20 17:35 Pulse Ox 97 07/02/20 17:35 Testing Laboratory Results 07/02/20 08:57 07/02/20 08:57 PT 11.0 Seconds (9.0-12.0) 07/01/20 13:40 INR 1.0 (0.9-1.1) 07/01/20 13:40 APTT 26.0 Seconds (21.0-31.0) 07/01/20 13:40 Blood Type O Positive 07/01/20 21:21 Antibody Screen NEGATIVE 07/01/20 21:21 07/01/20 20:50 Gram Stain - Final Leg Wound Culture - Preliminary Staphylococcus species Electrocardiogram Date: 07/01/20 Normal sinus rhythm Possible Inferior infarct (cited on or before 03-MAY-2020) Abnormal ECG When compared with ECG of 03-MAY-2020 12:36, No significant change was found Confirmed by Flakito Zelaya ([id number]) on 07/02/2020 11:38:48 AM Echocardiogram Date: 05/07/20 Normal LV chamber size with mild concentric LVH. Normal LV systolic function. EF 55-60% Grade 1 DD Mild AR NO AORTIC STENOSIS
[2020-07-02] MEDS ORDERED: fentaNYL citrate 100 MCG/2 ML VIAL IV PRN (17:51)
[2020-07-02] MEDS ORDERED: ONDANSETRON INJ 2 MG/ML 2 ML VIAL IV PRN (17:51)
[2020-07-02] MEDS ORDERED: ePHEDrine sulfate 50 MG/ML AMP IV PRN (17:51)
[2020-07-02] MEDS ORDERED: ATROPINE SULFATE 0.1 MG/ML 10ML SYR IV PRN (17:51)
--- NOTE | 2020-07-02 17:53 | Hospitalist Progress Note ---
Date of Service July 02, 2020 Assessment & Plan (1) Closed hip fracture: Mechanical fall with subsequent R hip fracture. Set for Ortho surgery this afternoon. Cont pain control efforts. Has a h/o PE in the past so recommend good post-op DVT prophylaxis when able. (2) Skin tear of left lower leg without complication: 2/ to fall pt has been treated with keflex 500mg bid as outpt x 7 days obtain wound culture and consult wound care nurse -->staph species growing. May be colonizer as admitting team did not feel this wound was infected and she is not clinically ill. (3) History of CVA (cerebrovascular accident): admitted 05/03-05/11, dx with multiple acute embolic cva seen and eval by neuro - recommend asa only, statin intolerant (4) Paroxysmal SVT (supraventricular tachycardia): cont metoprolol per home regimen. (5) CKD (chronic kidney disease) stage 3, GFR 30-59 ml/min: at baseline, cont to monitor periodically (6) COPD with emphysema: stable, No acute exacerbation, 1.5 L of oxygen at bedtime (7) Hypothyroidism: Continue levothyroxine per home regimen. (8) Depression: Continue Prozac and Wellbutrin per home regimen. (9) History of pulmonary embolism: h/o PE a couple of years ago per daughter. Recommend early post-op VTE chemoprophylaxis as soon as able for blood clot prevention. (10) DVT prophylaxis: SCDs-chemoprophy per Ortho DNR/DNI Dispo-cont hospitalization, to OR today. Dispo pending post-op recovery. Queta Benson DO [facility] Hospitalist (11) DNR (do not resuscitate): Admission and Anticipated Discharge Date Admission Date: July 01, 2020 Subjective fall at home with hip fracture lives at [facility] some dementia present so limited ROS denies CP or SOB denies hip pain unless she moves for surgery this afternoon per orthopedics. daughter is with her at bedside. Review of Systems Review of Systems: All systems reviewed & are unremarkable except as noted in Subjective Physical Exam Physical Exam: CONSTITUTIONAL: frail, elderly, vitals as above, generally well-appearing EYES: normal conjunctivae, no scleral icterus ENT: external ear and nose normal, MMM RESPIRATORY: clear to auscultation bilaterally, no crackles, rales or wheezes, normal respiratory effort CARDIOVASCULAR: regular rate and rhythm, S1 and 2 heard without murmurs, gallops or rubs, no JVD, no peripheral edema GASTROINTESTINAL: soft, nontender, nondistended, no guarding. MUSCULOSKELETAL: generalized weakness. SKIN: warm and dry, wrapped wound not evaluated on RLE under SCDs NEUROLOGIC: CN 2-12 grossly intact, no sensory deficit, normal cognition, normal speech, no gross focal deficits. PSYCHIATRIC: alert and cooperative. Problems with remembering the story but answers questions appropriately. Results & Data Results & Data ([facility]) Vital Signs (Past 12 Hours) Vital Signs Temp Pulse Resp BP Pulse Ox 07/02/20 17:35 37.3 C 80 16 137/65 97 07/02/20 16:00 36.5 C 79 14 119/70 90 07/02/20 08:03 36.7 C 88 16 125/71 95 Laboratory Results Short CBC 07/02/20 Range/Units 08:57 WBC 8.92 (4.8-10.8) K/uL Hgb 12.2 (12.0-16.0) g/dL Hct 37.6 (37-47) % Plt Count 229 (130-400) K/uL BMP 07/02/20 08:57 Sodium 137 Potassium 4.2 Chloride 102 Carbon Dioxide 28 BUN 12 Creatinine 0.93 Glucose 80 Calcium 8.5 Medications Administered Current Inpatient Medications Acetaminophen (Acetaminophen 325 Mg Tab) 650 mg PO Q4H PRN PRN Reason: pain/fever Stop: 07/31/20 20:00 Al Hydrox/Mg Hydrox/Simethicone (Aluminum/Magnesium Susp 30 Ml Udc) 30 ml PO Q6H PRN PRN Reason: Dyspepsia Stop: 07/31/20 20:00 Aspirin (Aspirin 81 Mg Ectab) 81 mg PO QAM DENY Stop: 08/01/20 08:59 Last Admin: 07/02/20 08:04 Dose: 81 mg Documented by: Atropine Sulfate (Atropine Sulfate 0.1 Mg/Ml 10ml Syr) 0.5 mg IV Q1M PRN PRN Reason: PACU Use-HR<40 &/or Bradycardi Stop: 07/03/20 01:51 Bisacodyl (Bisacodyl 10 Mg Supp) 10 mg UT DAILY PRN PRN Reason: Constipation Stop: 07/31/20 20:00 Bupropion HCl (Bupropion Xl 150 Mg Tabcr) 150 mg PO QAM [facility] Stop: 08/01/20 08:59 Last Admin: 07/02/20 08:04 Dose: 150 mg Documented by: Ephedrine Sulfate (Ephedrine Sulfate 50 Mg/Ml Amp) 5 mg IV Q5M PRN PRN Reason: PACU Use Only-SBP<90 mmHg Stop: 07/03/20 01:51 Fentanyl Citrate (Fentanyl Citrate 100 Mcg/2 Ml Vial) 25 mcg IV Q5M PRN PRN Reason: PACU Use Only-Pain Stop: 07/03/20 01:51 Fluoxetine HCl (Fluoxetine Hcl 20 Mg Cap) 40 mg PO QAM [facility] Stop: 08/01/20 08:59 Last Admin: 07/02/20 08:04 Dose: 40 mg Documented by: Folic Acid (Folic Acid 1 Mg Tab) 1 mg PO QAM [facility] Stop: 08/01/20 08:59 Last Admin: 07/02/20 08:04 Dose: 1 mg Documented by: Cefazolin Sodium (Ancef 2000mg) 2,000 mg in 15 mls @ 3.75 mls/min IV PREOP [facility]; Protocol Stop: 07/02/20 18:00 Levothyroxine Sodium (Levothyroxine Sodium 125 Mcg Tablet) 125 mcg PO DAILYBB [facility] Stop: 08/01/20 06:29 Last Admin: 07/02/20 05:06 Dose: 125 mcg Documented by: Magnesium Hydroxide (Magnesium Hydroxide Susp 30 Ml Udc) 30 ml PO Q6H PRN PRN Reason: Constipation Stop: 07/31/20 20:00 Magnesium Hydroxide (Magnesium Hydroxide Susp 30 Ml Udc) 30 ml PO DAILY PRN PRN Reason: Constipation Stop: 07/31/20 20:00 Metoprolol Succinate (Metoprolol Succ 25mg Ext Rel Tab) 25 mg PO QAM [facility] Stop: 08/01/20 08:59 Last Admin: 07/02/20 08:04 Dose: 25 mg Documented by: Metronidazole (Metronidazole 0.75% Topical Gel 45 Gm Tube) 1 appln TOP BID [facility] Stop: 07/11/20 20:59 Last Admin: 07/02/20 08:05 Dose: 1 appln Documented by: Miscellaneous (*Minocycline*Order Awaiting Action) 1 ea N/A QS [facility] Stop: 08/01/20 00:00 Last Admin: 07/02/20 15:09 Dose: Not Given Documented by: Morphine Sulfate (Morphine Sulfate 2 Mg/Ml Carp) 2 mg IV Q4H PRN PRN Reason: MODERATE Pain (Scale 4,5,6) Stop: 07/15/20 20:00 Multivitamins/Minerals (Calcium 600mg + Vit D 400 Iu Tab) 2 tab PO QAM [facility] Stop: 08/01/20 08:59 Last Admin: 07/02/20 08:04 Dose: 2 tab Documented by: Naloxone HCl (Naloxone Hcl 0.4 Mg/1 Ml Vial/Carp) 0.1 mg IV UD PRN PRN Reason: Opiate Overdose Stop: 07/31/20 20:00 Ondansetron HCl (Ondansetron Inj 2 Mg/Ml 2 Ml Vial) 4 mg IV Q6H PRN PRN Reason: Nausea Stop: 07/31/20 20:00 Ondansetron HCl (Ondansetron Inj 2 Mg/Ml 2 Ml Vial) 4 mg IV ONCE PRN PRN Reason: PACU Use Only-Nausea/Vomiting Stop: 07/03/20 01:51 Oxycodone HCl (Oxycodone Hcl Ir 5 Mg Tab (Immediate Release)) 5 mg PO Q4H PRN PRN Reason: MODERATE Pain (Scale 4,5,6) Stop: 07/15/20 20:00 Last Admin: 07/02/20 15:08 Dose: 5 mg Documented by: Polyethylene Glycol (Polyethylene (Miralax) 17 Gm Pack) 17 gm PO DAILY PRN PRN Reason: Constipation Stop: 07/31/20 20:00 Senna/Docusate Sodium (Docusate Sodium/Senna 50/8.6mg Tab) 2 tab PO HS [facility] Stop: 07/31/20 20:59 Last Admin: 07/01/20 22:13 Dose: 2 tab Documented by: (1) Closed hip fracture Encounter type: initial encounter Laterality: right Qualified Code(s): S72.001A - Fracture of unspecified part of neck of right femur, initial encoun ter for closed fracture (2) COPD with emphysema Emphysema type: unspecified Qualified Code(s): J43.9 - Emphysema, unspecified
[2020-07-02] MEDS ORDERED: BUPIVACAINE 0.5 % 5 MG/1 ML PF 10ML VIAL ONE (17:57)
[2020-07-02] MEDS ORDERED: fentaNYL citrate 100 MCG/2 ML VIAL ONE (18:05)
[2020-07-02] MEDS ORDERED: LIDOCAINE HCL 2% 2 ML VIAL/AMP(20MG/ML) INFIL ONE (18:05)
[2020-07-02] MEDS ORDERED: PROPOFOL IV EMULSION 10 MG/ML 20 ML VIAL IV ONE (18:05)
--- NOTE | 2020-07-02 18:22 | History & Physical Bridge Note ---
Date of Service July 02, 2020 History & Physical Bridge Note I have examined the patient, reviewed the History & Physical and in the interval since the performance of the History & Physical I have noted the following changes of clinical significance: Will require troch nailing right hip fracture.
[2020-07-02] MEDS ORDERED: PHENYLEPHRINE 100MCG/ML 5ML SYR ONE (19:34)
[2020-07-02] MEDS: BUPIVACAINE 0.5 % 5 MG/1 ML MPF 30ML VIAL ONE ×2 (19:36→19:52)
[2020-07-02] MEDS ORDERED: ONDANSETRON INJ 2 MG/ML 2 ML VIAL ONE (19:36)
--- NOTE | 2020-07-02 20:00 | Fluoroscopy Report ---
FL hip RT 2-3V CLINICAL HISTORY: Right hip fracture COMPARISON STUDY: 07/01/2020 FLUOROSCOPY TIME: 73 seconds. NUMBER OF FLUOROSCOPIC IMAGES: 4 FINDINGS: 4 intraoperative fluoroscopic spot images demonstrate a trochanteric nail and interlocking intramedullary sandee. There is an avulsed lesser trochanteric fracture. IMPRESSION: Intraoperative fluoroscopic spot images demonstrating an intertrochanteric nail with an interlocking medullary sandee. ACT 112: Negative or not required by law. Electronically signed by: Linus Pavon M.D. 07/02/2020 7:58 PM
--- NOTE | 2020-07-02 20:08 | Post Operative Brief Note ---
Immediate Post Op Note v1 Date of Surgery July 02, 2020 Pre & Post Diagnosis Operation Date: 07/02/20 12:55 Pre-Op Diagnosis: Right Closed intertrochanteric hip fracture, fracture lesser trochanter right hip Post-Op Diagnosis: Right Closed intertrochanteric hip fracture, fracture lesser trochanter right hip I identified the patient and participated in the time-out.: Yes Procedure Operation Date: 07/02/20 12:55 Actual Procedures p open reduction internal fixation right closed intertrochanteric hip fracture with Synthes trochanteric Nail Right; 12 mm x 130 degree titanium trochanteric fixation nail 170 mm long, 11 mm x 90 mm helical blade, 5 mm x 38 mm locking screw. (Right) - Ramirez Kessler DO Surgeon Ramirez Kessler DO Mold Sander None Estimated Blood Loss 10 Findings Consistent with Post-Op Diagnosis Specimens None Drains Rodriguez Catheter (Pt arrived with rodriguez catheter. Remains patent throughout procedure) Anesthesia Type Spinal MAC Complications none Disposition Accompanied Patient To Recovery: No Disposition: Recovery Room
--- NOTE | 2020-07-02 20:24 | Anesthesiology Progress Note ---
Date of Service July 02, 2020 Anesthesia Post Procedure Vital Signs Vital Signs: Temp Pulse Resp BP Pulse Ox 07/02/20 17:35 37.3 C 80 16 137/65 97 07/02/20 16:00 36.5 C 79 14 119/70 90 07/02/20 08:03 36.7 C 88 16 125/71 95 07/01/20 23:19 93 07/01/20 23:16 37.0 C 83 20 117/82 84 L Pain Intensity Right Upper Leg: Pain Intensity: 5 Transfer of Care Handoff Completed per policy Notes Mental Status: alert / awake / arousable and participated in evaluation Patient Amnestic to Procedure: Yes Nausea / Vomiting: adequately controlled Pain: adequately controlled Airway Patency, RR, SpO2: stable & adequate BP & HR: stable & adequate Hydration State: stable & adequate Neuraxial Anesthesia: was administered and sensory block is resolving Anesthetic Complications: no major complications apparent and Pt Satisfied with anesthetic care
[2020-07-02] MEDS ORDERED: NALOXONE HCL 0.4 MG/1 ML VIAL/CARP IV PRN (21:51)
[2020-07-02] MEDS: DOCUSATE SODIUM/SENNA 50/8.6MG TAB PO SCH (22:36)
[2020-07-02] MEDS ORDERED: ALBUT/IPRATROP 3MG/0.5MG NEB 3 ML VIAL NEB STA (22:49)
--- NOTE | 2020-07-02 23:20 | XRay Report ---
XR chest 1V portable CLINICAL HISTORY: Hypoxia COMPARISON STUDY: 07/01/2020 FINDINGS: The heart is enlarged. There is persistent aortic tortuosity. There is slight elevation of interstitium suggesting mild pulmonary vascular congestion. Small pleural effusions are visualized. T here are basilar opacities, likely atelectatic.[ IMPRESSION: 1. Cardiomegaly and suspected mild pulmonary vascular congestion/fluid overload 2. Trace pleural effusions 3. Bibasilar opacities, statistically atelectatic ACT 112: Negative or not required by law. Electronically signed by: Linus Pavon M.D. 07/02/2020 11:19 PM
[2020-07-02] MEDS ORDERED: LEVALBUTEROL 1.25MG/0.5ML NEB INH STA (23:23)
[2020-07-02] MEDS ORDERED: IPRATROPIUM BROMIDE NEB SOLN 0.02% 2.5 ML VIAL INH STA (23:23)
[2020-07-02 23:27] LABS: Base Excess ABG -0.4 mEq/L (-9-1.8); HCO3 ABG 25 mmol/L (19-24); Oxygen Saturation ABG 98.7 % (90-95); PCO2 ABG 43 mmHg (35-46); PO2 ABG 130 mmHg (80-95); pH ABG 7.38 (7.35-7.45)
[2020-07-02 23:29] LABS: Allen Test POS (Pos)
[2020-07-02] MEDS ORDERED: methylPREDNISolone 40 MG in SYRINGE 0 ML IV ONE (23:45)
[2020-07-02 23:50] LABS: Partial Thromboplastin Ratio 0.9; Partial Thromboplastin Time 23.9 Seconds (21.0-31.0)
[2020-07-02 23:57] LABS: BUN Creatinine Ratio 16.2 (10-20); Calcium 8.6 mg/dl (8.5-10.1); Creatinine Clr Calc Pharmacy 34.4 ml/min; Est GFR (African American) 62.8; Est GFR (Non-African American) 54.2; Magnesium 1.9 mg/dl (1.8-2.4); Potassium 4.4 mmol/L (3.5-5.1)
[2020-07-03] MEDS: [UNRECOGNIZED DRUG - REMARK] SCH ×4 (00:14→23:51)
[2020-07-03] MEDS ORDERED: ALBUT/IPRATROP 3MG/0.5MG NEB 3 ML VIAL NEB PRN (00:36)
[2020-07-03] MEDS ORDERED: MAGNESIUM SULFATE / D5W 1 GM/100 ML BAG IV ONE (00:45)
[2020-07-03] MEDS ORDERED: ALBUMIN 25% 12.5 GM/50 ML VIAL IV ONE (00:45)
[2020-07-03] MEDS ORDERED: IPRATROPIUM BROMIDE NEB SOLN 0.02% 2.5 ML VIAL INH SCH (01:00)
[2020-07-03] MEDS ORDERED: XOPENEX/ATROVENT 1.25mg/0.5MG NEB COMBO NEB SCH (01:00)
[2020-07-03] MEDS ORDERED: LEVALBUTEROL 1.25MG/0.5ML NEB INH SCH (01:00)
[2020-07-03] MEDS ORDERED: FUROSEMIDE 20 MG in SYRINGE 0 ML IV ONE (01:45)
[2020-07-03] MEDS: oxyCODONE HCL IR 5 MG TAB (IMMEDIATE RELEASE) PO PRN ×2 (02:07→06:15)
--- NOTE | 2020-07-03 05:41 | Operative Report (OR) ---
DATE OF OPERATION: 07/02/2020 PREOPERATIVE DIAGNOSES: 1. Right closed intertrochanteric hip fracture. 2. Fracture of lesser trochanter of the right hip. POSTOPERATIVE DIAGNOSES: 1. Right closed intertrochanteric hip fracture. 2. Fracture of lesser trochanter of the right hip. PROCEDURE: Open reduction internal fixation right closed intertrochanteric hip fracture with Synthes trochanteric nail, right with a 12 mm x 130 degree titanium trochanteric fixation nail, 170 mm in length, 11 mm x 90 mm helical blade, 5 mm x 38 mm locking screw. SURGEON: Ramirez Kessler DO PROFESSIONAL SERVICES SPECIALIST: None. ANESTHESIA: Spinal, MAC. SPECIMENS: None. DRAINS: None. COMPLICATIONS: None. BLOOD LOSS: 10 mL. PERTINENT HISTORY: This is an 89-year-old female who sustained a mechanical fall. She had pain in her right hip and groin, presented to [facility], evaluated by the emergency physician and noted to have obvious fracture of her lesser trochanter by radiograph and then a CT scan which demonstrated she had a fracture into the intertrochanteric region of the hip. She was admitted to the hospital and then scheduled for surgery as indicated. All potential risks, benefits, complications, alternatives, rehab, potential for incomplete relief of symptoms, need for further surgery, DVT, PE, , persistent pain, swelling, scarring, weakness, neurovascular injury, wound complications, hardware failure, nonunion, malunion and bone fracture were discussed with the patient and the power of camouflage specialist who is her daughter, they both decided to proceed with procedure as indicated. PROCEDURE: The patient was transferred to the operative suite. The proper site was identified. The consent was reviewed, the patient was then administered sedation and spinal anesthetic. Once appropriate, the patient then transferred to the fracture table where the lower extremity was placed in fracture table traction and the nonoperative leg was placed in the well leg jennings. All bony prominences were properly padded and protected. The padded post was placed in the peroneal and the patient was positioned appropriately. Next the left leg was placed on traction and reduction of the fracture was performed under fluoroscopic control. Next the operative hip was then sterilely prepped and draped in the usual fashion. Next a 10-blade scalpel incision was used to make an incision proximal to the greater trochanter. The incision was deep in the subcutaneous tissue and fascia and the tip of the greater trochanter was then palpated followed by placement of a guide pin under fluoroscopic control driven into the greater trochanter down to the level of the less trochanter. This was confirmed in AP and lateral projections followed by placement of the proximal reamer over the cannulated guide pin. Next the reamer was then removed using the soft tissue protector, which was also removed. Next the ball tip guide sandee was placed into the proximal femur under fluoroscopic control confirmed with AP and lateral fluoroscope projections. Next the trochanteric nail was then passed over the guide sandee into the femur, the guide sandee was removed and then under fluoroscopic control appropriate level of the femoral nail was then placed in AP projections. Next the targeting device was then fixed to the driving handle and 10-blade scalpel incision was made in the lateral aspect of the thigh. Next the tissue protector and cannulated guide system was then passed into the soft tissue until it was securely fixed against a lateral aspect of the femoral cortex. This was also confirmed under C-arm. Next the guide pin for the spiral blade was driven into the lateral aspect of the femur confirming this with AP lateral projections until the guide pin was in the center of the femoral neck and head approximately 5 mm from the subcortical bone of the femur. Next the spiral blade was then measured and then the lateral cortex was then drilled with the cortex reamer followed by use of the triple reamer with the depth stop set at appropriate depth. In this case a Synthes trochanteric nail, right with a 12 mm x 130 degree titanium trochanteric fixation nail, 170 mm in length, 11 mm x 90 mm helical blade, 5 mm x 38 mm locking screw was then inserted over the cannulated guide sandee under fluoroscopic control. This was seated appropriately then traction was reduced from the limb and the fracture was then gently compressed and then locked proximally with the flexible screwdriver. Next the spiral blade was then disengaged from its insertion handle, insertion handle was then removed and the guide pin was removed from the femoral neck and head. Next the lateral targeting arm was used to insert the distal locking screw. First a 10-blade scalpel incision was made in the lateral aspect of the thigh, captured drill sleeves were then tamped gently to the lateral aspect of the femoral cortex then the locking screw hole was then drilled, measured and then an appropriate length screw was placed to lock the distal aspect of the nail. Next targeting sleeves were then removed. The insertion arm was then removed from the nail and final x-rays were obtained in AP and lateral projections. All incisions were then copiously irrigated with sterile normal saline. The proximal gluteus fascia was then closed using interrupted #1 Vicryl, the dermis was closed using buried interrupted 2-0 Vicryl sutures in all three incisions and the skin was then closed using skin roc. A sterile compressive dressing consisting of Xeroform gauze, sterile 4 x 4's and Tegaderm was applied. The patient was then awakened and taken to recovery in stable condition. I attest to the content of the Intraoperative Record and any orders documented therein. Any exception s are noted below.
[2020-07-03 05:47] LABS: Hematocrit (blood only) 34.6 % (37-47); Hemoglobin 11.4 g/dL (12.0-16.0); Immature Granulocytes # (auto) 0.09 K/uL (0.00-0.02); Immature Granulocytes % (auto) 0.8 %; Lymphocytes # (auto) 0.15 K/uL (1.2-3.4); Lymphocytes % (auto) 1.3 %; Mean Corpuscular Hemoglobin 28.1 pg (25-34); Mean Corpuscular Hgb Conc 32.9 g/dL (32-36); Mean Corpuscular Volume 85.2 fL (80-100); Mean Platelet Volume 11.2 fL (7.4-10.4); Monocytes # (auto) 0.31 K/uL (0.11-0.59); Monocytes % (auto) 2.6 %; Neutrophils # (auto) 11.21 K/uL (1.4-6.5); Neutrophils % (auto) 95.3 %; Platelet Count 218 K/uL (130-400); RDW Coefficient of Variation 14.1 % (11.5-14.5); Red Blood Count 4.06 M/uL (4.2-5.4); White Blood Count 11.76 K/uL (4.8-10.8)
[2020-07-03] MEDS: LEVOTHYROXINE SODIUM 125 MCG TABLET PO SCH (06:16)
[2020-07-03 06:21] LABS: BUN Creatinine Ratio 14.7 (10-20); Calcium 8.5 mg/dl (8.5-10.1); Creatinine Clr Calc Pharmacy 28.9 ml/min; Est GFR (African American) 50.8; Est GFR (Non-African American) 43.8; Potassium 4.3 mmol/L (3.5-5.1)
[2020-07-03] MEDS: METOPROLOL SUCC 25MG EXT REL TAB PO SCH (09:22)
[2020-07-03] MEDS: buPROPion XL 150 MG TABCR PO SCH (09:22)
[2020-07-03] MEDS: ASPIRIN 81 MG ECTAB PO SCH (09:22)
[2020-07-03] MEDS: FLUoxetine HCL 20 MG CAP PO SCH (09:23)
[2020-07-03] MEDS: FOLIC ACID 1 MG TAB PO SCH (09:23)
[2020-07-03] MEDS: CALCIUM 600MG + VIT D 400 IU TAB PO SCH (09:23)
[2020-07-03] MEDS: metroNIDAZOLE 0.75% TOPICAL GEL 45 GM TUBE TOP SCH ×2 (09:23→21:45)
--- NOTE | 2020-07-03 09:40 | Orthopedic Progress Note ---
Date of Service July 03, 2020 Assessment & Plan (1) Closed hip fracture: Postop day 1 status post right TFN PT/OT protocols. Weightbearing as tolerated on the right lower extremity. DVT prophylaxis-Lovenox, SCDs, DANTE hose Pain management as written. DC planning-patient may likely need a fdc facility versus rehab prior to returning to [facility]. Admission and Anticipated Discharge Date Admission Date: July 01, 2020 Subjective Postop day 1 Patient currently sitting up in her bed asleep. She is easily awoken and answers questions appropriately. She states she is having some discomfort in her right hip around the surgical sites. No other complaints. Physical Exam Physical Exam: Dressings are clean, dry, and intact. She does have some mild swelling but the thigh is soft and nontender. He is moving her toes and ankles well. Sensation is intact. Calves are soft and nontender. Results & Data ([facility]) Vital Signs (Past 12 Hours) Vital Signs Temp Pulse Pulse Resp BP Pulse Ox 07/03/20 08:58 36.4 C L 90 18 105/65 100 07/03/20 03:37 36.8 C 94 H 18 120/71 96 07/03/20 02:10 36.5 C 100 H 20 135/74 94 07/03/20 00:42 36.7 C 90 14 163/87 H 94 07/03/20 00:35 91 H 20 95 07/02/20 23:40 36.5 C 88 12 108/55 L 98 07/02/20 23:02 85 20 96 07/02/20 22:48 36.7 C 86 18 142/79 H 91 07/02/20 22:00 36.4 C L 77 20 137/64 90 07/02/20 21:40 36.4 C L 77 20 144/77 H 93 Laboratory Results Laboratory Results WBC 11.76 K/uL (4.8-10.8) H 07/03/20 05:12 RBC 4.06 M/uL (4.2-5.4) L 07/03/20 05:12 Hgb 11.4 g/dL (12.0-16.0) L 07/03/20 05:12 Hct 34.6 % (37-47) L 07/03/20 05:12 MCV 85.2 fL (80-100) 07/03/20 05:12 MCH 28.1 pg (25-34) 07/03/20 05:12 MCHC 32.9 g/dL (32-36) 07/03/20 05:12 RDW Std Deviation 44.0 fL (36.4-46.3) 07/03/20 05:12 RDW Coeff of [place] 14.1 % (11.5-14.5) 07/03/20 05:12 Plt Count 218 K/uL (130-400) 07/03/20 05:12 MPV 11.2 fL (7.4-10.4) H 07/03/20 05:12 Immature Gran % (Auto) 0.8 % 07/03/20 05:12 Neut % (Auto) 95.3 % 07/03/20 05:12 Lymph % (Auto) 1.3 % 07/03/20 05:12 [place] % (Auto) 2.6 % 07/03/20 05:12 Eos % (Auto) 0.0 % 07/03/20 05:12 Baso % (Auto) 0.0 % 07/03/20 05:12 Neut # (Auto) 11.21 K/uL (1.4-6.5) H 07/03/20 05:12 Lymph # (Auto) 0.15 K/uL (1.2-3.4) L 07/03/20 05:12 [place] # (Auto) 0.31 K/uL (0.11-0.59) 07/03/20 05:12 Eos # (Auto) 0.00 K/uL (0-0.5) 07/03/20 05:12 Baso # (Auto) 0.00 K/uL (0-0.2) 07/03/20 05:12 Immature Gran # (Auto) 0.09 K/uL (0.00-0.02) H 07/03/20 05:12 PT 11.0 Seconds (9.0-12.0) 07/01/20 13:40 INR 1.0 (0.9-1.1) 07/01/20 13:40 APTT 23.9 Seconds (21.0-31.0) 07/02/20 23:27 PTT Ratio 0.9 07/02/20 23:27 ABG pH 7.38 (7.35-7.45) 07/02/20 23:08 ABG pCO2 43 mmHg (35-46) 07/02/20 23:08 ABG pO2 130 mmHg (80-95) H 07/02/20 23:08 ABG HCO3 25 mmol/L (19-24) H 07/02/20 23:08 ABG O2 Saturation 98.7 % (90-95) H 07/02/20 23:08 ABG Base Excess -0.4 mEq/L (-9-1.8) 07/02/20 23:08 [place]elo Test POS (Pos) 07/02/20 23:08 Barometric Pressure 738.3 mm/Hg 07/02/20 23:08 Oxygen Given 4L O2 07/02/20 23:08 Sodium 136 mmol/L (136-145) 07/03/20 05:12 Potassium 4.3 mmol/L (3.5-5.1) 07/03/20 05:12 Chloride 100 mmol/L (98-107) 07/03/20 05:12 Carbon Dioxide 28 mmol/L (21-32) 07/03/20 05:12 Anion Gap 8.0 (3-11) 07/03/20 05:12 BUN 17 mg/dl (7-18) 07/03/20 05:12 Creatinine 1.12 mg/dl (0.6-1.2) 07/03/20 05:12 Est Cr Clr Drug Dosing 28.9 ml/min 07/03/20 05:12 Est GFR ( Amer) 50.8 07/03/20 05:12 Est GFR (Non-Af Amer) 43.8 07/03/20 05:12 BUN/Creatinine Ratio 14.7 (10-20) 07/03/20 05:12 Glucose 123 mg/dl (70-99) H 07/03/20 05:12 POC Glucose 133 mg/dl (70-99) H 07/03/20 08:33 Calcium 8.5 mg/dl (8.5-10.1) 07/03/20 05:12 Magnesium 1.9 mg/dl (1.8-2.4) 07/02/20 23:27 NT-Pro-B Natriuret Pep 2800 pg/ml (0-1800) H 07/02/20 23:27 25-OH Vitamin D Total 27.7 ng/ml (30-100) L 07/02/20 08:57 Nasal Screen MRSA (PCR) Positive (Negative) A 07/01/20 17:44 [facility]19 [facility] 07/01/20 17:18 SARS-CoV-2, RNA, NAAT NEGATIVE (NEGATIVE) 07/01/20 17:18 Blood Type O Positive 07/01/20 21:21 Antibody Screen NEGATIVE 07/01/20 21:21 (1) Closed hip fracture Encounter type: initial encounter Laterality: right Qualified Code(s): S72.001A - Fracture of unspecified part of neck of right femur, initial encounter for closed fracture
[2020-07-03] MEDS: ENOXAPARIN INJ 30 MG/0.3 ML SYR SQ SCH (09:48)
[2020-07-03] MEDS: ACETAMINOPHEN 500 MG TAB PO SCH ×2 (13:52→21:45)
--- NOTE | 2020-07-03 16:42 | Surgery Consultation ---
Date of Consultation July 03, 2020 Assessment & Plan (1) Fall: right elbow hematoma recommend elevation, warm compresses no surgiacl isues will sign off History of Present Illness Attending Physician: Queta Benson, History of Present Illness This is an 89-year-old female who was admitted for a fall with a right hip fracture s/p ORIF right hip who also has a right upper extremity hematoma. She has significant past medical history of emphysema, HTN, HLD, CKD stage III, depression with anxiety, hypothyroidism, history of SVT, osteoporosis, recurrent falls, history of PE, history of embolic CVA, and cognitive decline. She does not complain of pain from the hematoma. Allergies Allergy/AdvReac Type Severity Reaction Status Date / Time [place] And Derivatives Allergy Verified 07/02/20 18:36 peanut Allergy Verified 07/02/20 18:34 strawberry Allergy Verified 07/02/20 18:35 zolpidem AdvReac Intermediate psychotic Verified 07/01/20 15:34 response Home Medications Home Medications Medication Instructions Recorded Confirmed Type aspirin 81 mg PO QAM #90 tab 05/11/20 07/01/20 Rx folic acid 1 mg PO QAM #30 tab 05/11/20 07/01/20 Rx metronidazole 1 applic TOPICAL BID #45 g 05/11/20 07/01/20 Rx acetaminophen [Tylenol] 650 mg PO Q6H PRN 07/01/20 07/01/20 History bupropion HCl 150 mg PO QAM 07/01/20 07/01/20 History calcium carbonate-vitamin D3 2 tab PO QAM 07/01/20 07/01/20 History [Calcium 600 + D(3)] cephalexin 500 mg PO BID 07/01/20 07/01/20 History fluoxetine 40 mg PO QAM 07/01/20 07/01/20 History levothyroxine 125 mcg PO QAM 07/01/20 07/01/20 History metoprolol succinate 25 mg PO QAM 07/01/20 07/01/20 History minocycline 100 mg PO QAM 07/01/20 07/01/20 History Patient History Medical History (Updated 07/02/20 @ 17:41 by Maykel Rodrigez MD) CKD (chronic kidney disease) stage 3, GFR 30-59 ml/min Colon cancer 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 HLD (hyperlipidemia) Hypertension Hypothyroidism Osteoporosis Restrictive lung disease Surgical History H/O hernia repair x 2 History of cataract extraction History of left hemicolectomy 02/04/05 due to Colon CA History of tonsillectomy and adenoidectomy Family History Father , age 78 Lymphoma Mother , age 89 Myocardial infarction Coronary heart disease Stroke Dementia Brother , age 52 Suicide Grandfather Coronary heart disease Grandmother Coronary heart disease Social History Smoking Status: Former smoker Cigarettes Per Day: 50 pack yr history; Second Hand Exposure: No; Hx Alcohol Use: No Hx Substance Use: No Preferred Language: Mozambican Communication Ability: Impaired Communication Ability Comment: dementia 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 Required: No Beliefs That Will Affect Care: Orthodox Orthodox Beliefs: Anabaptism marital status: / Current Living Situation: Personal Care Facility Current Living Situation Comment: [facility] current occupational status: retired 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 [employer] Other Information That Helps Us Care for You: No Feels Safe at Home: Yes Safety Concerns: Feels Safe At This Time Assistive Devices: Glasses, Hearing Aid - Bilateral and Oxygen - Continuous Review of Systems Review of Systems: Unobtainable due to mental health condition Physical Exam Constitutional: well developed and + thin Eyes: PERRL ENMT: external ear and nose normal, oropharynx normal Neck: trachea midline Respiratory: Auscultation: lungs clear to auscultation bilaterally Cardiovascular: Rate/Rhythm: regular rate and regular rhythm Gastrointestinal (Abdomen): normal bowel sounds, soft, nontender, no hepatosplenomegaly Musculoskeletal: Head/Neck/Chest: + head abnormal to inspection Extremities: + extremities abnormal to inspection (right elbow hematoma. mobile) Skin: Trauma: + evidence of skin trauma Results & Data ([facility]) Vital Signs (Past 12 Hours) Vital Signs Temp Pulse Pulse Resp BP Pulse Ox 07/03/20 15:16 36.2 C L 89 16 100/58 L 92 07/03/20 12:00 36.9 C 90 14 127/74 94 07/03/20 08:58 36.4 C L 90 18 105/65 100 (1) Fall Encounter type: initial encounter Qualified Code(s): W19.XXXA - Unspecified f all, initial encounter
--- NOTE | 2020-07-03 18:08 | Hospitalist Progress Note ---
Date of Service July 03, 2020 Assessment & Plan (1) Closed hip fracture: Mechanical fall with subsequent R hip fracture. Set for Ortho surgery this afternoon. Cont pain control efforts. Has a h/o PE in the past so on Lovenox for prophylaxis. (2) Skin tear of left lower leg without complication: 2/2 to fall-no evidence of active infection (ie-pus). 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 Hold on abx for now and discuss further with ID. pt has been treated with keflex 500mg bid as outpt x 7 days obtain wound culture and consult wound care nurse -->staph species growing. May be colonizer as admitting team did not feel this wound was infected and she is not clinically ill. (3) History of CVA (cerebrovascular accident): admitted 05/03-05/11, dx with multiple acute embolic cva seen and eval by neuro - recommend asa only, statin intolerant (4) Paroxysmal SVT (supraventricular tachycardia): cont metoprolol per home regimen. (5) CKD (chronic kidney disease) stage 3, GFR 30-59 ml/min: at baseline, cont to monitor periodically (6) COPD with emphysema: stable, No acute exacerbation, 1.5 L of oxygen at bedtime (7) Hypothyroidism: Continue levothyroxine per home regimen. (8) Depression: Continue Prozac and Wellbutrin per home regimen. (9) History of pulmonary embolism: h/o PE a couple of years ago per daughter. Currently on Lovenox post-op. (10) DVT prophylaxis: SCDs-chemoprophy per Ortho DNR/DNI Dispo-cont hospitalization, Dispo pending post-op recovery. Queta Benson DO [facility] Hospitalist Admission and Anticipated Discharge Date Admission Date: July 01, 2020 Subjective sleepy from narcotics. discussed with patient and daughter to change narcotics to tramadol prn breakthrough and start scheduled APAP otherwise pain controlled unless she moves around. Review of Systems Review of Systems: All systems reviewed & are unremarkable except as noted in Subjective Physical Exam Physical Exam: CONSTITUTIONAL: frail, elderly, vitals as above, generally well-appearing EYES: normal conjunctivae, no scleral icterus ENT: external ear and nose normal, MMM RESPIRATORY: clear to auscultation bilaterally, no crackles, rales or wheezes, normal respiratory effort CARDIOVASCULAR: regular rate and rhythm, S1 and 2 heard without murmurs, gallops or rubs, no JVD, no peripheral edema GASTROINTESTINAL: soft, nontender, nondistended, no guarding. MUSCULOSKELETAL: generalized weakness. SKIN: warm and dry, wrapped wound not evaluated on RLE under SCDs NEUROLOGIC: CN 2-12 grossly intact, no sensory deficit, normal cognition, normal speech, no gross focal deficits. PSYCHIATRIC: alert and cooperative. Problems with remembering the story but answers questions appropriately. Results & Data Results & Data ([facility]) Vital Signs (Past 12 Hours) Vital Signs Temp Pulse Pulse Resp BP Pulse Ox 07/03/20 15:16 36.2 C L 89 16 100/58 L 92 07/03/20 12:00 36.9 C 90 14 127/74 94 07/03/20 08:58 36.4 C L 90 18 105/65 100 Laboratory Results Short CBC 07/03/20 Range/Units 05:12 WBC 11.76 H (4.8-10.8) K/uL Hgb 11.4 L (12.0-16.0) g/dL Hct 34.6 L (37-47) % Plt Count 218 (130-400) K/uL BMP 07/02/20 07/03/20 23:27 05:12 Sodium 136 136 Potassium 4.4 4.3 Chloride 102 100 Carbon Dioxide 27 28 BUN 15 17 Creatinine 0.94 1.12 Glucose 103 H 123 H Calcium 8.6 8.5 Medications Administered Current Inpatient Medications Acetaminophen (Acetaminophen 500 Mg Tab) 1,000 mg PO Q8H DENY Stop: 08/02/20 13:59 Last Admin: 07/03/20 13:52 Dose: 1,000 mg Documented by: Al Hydrox/Mg Hydrox/Simethicone (Aluminum/Magnesium Susp 30 Ml Udc) 30 ml PO Q6H PRN PRN Reason: Dyspepsia Stop: 07/31/20 20:00 Albuterol (Albut/Ipratrop 3mg/0.5mg Neb 3 Ml Vial) 3 ml NEB Q2H PRN PRN Reason: Wheezing Stop: 08/02/20 00:35 Aspirin (Aspirin 81 Mg Ectab) 81 mg PO QAM DENY Stop: 08/01/20 08:59 Last Admin: 07/03/20 09:22 Dose: 81 mg Documented by: Bisacodyl (Bisacodyl 10 Mg Supp) 10 mg [place] DAILY PRN PRN Reason: Constipation Stop: 07/31/20 20:00 Bupropion HCl (Bupropion Xl 150 Mg Tabcr) [facility] Stop: 08/01/20 08:59 Last Admin: 07/03/20 09:22 Dose: 150 mg Documented by: Enoxaparin Sodium (Enoxaparin Inj 30 Mg/0.3 Ml Syr) 30 mg SQ DAILY [facility] Stop: 08/02/20 08:59 Last Admin: 07/03/20 09:48 Dose: 30 mg Documented by: Fluoxetine HCl (Fluoxetine Hcl 20 Mg Cap) 40 [facility] [place] Stop: 08/01/20 08:59 Last Admin: 07/03/20 09:23 Dose: 40 mg Documented by: Folic Acid (Folic Acid 1 Mg Tab) 1 mg PO QAM [facility] Stop: 08/01/20 08:59 Last Admin: 07/03/20 09:23 Dose: 1 mg Documented by: Levothyroxine Sodium (Levothyroxine Sodium 125 Mcg Tablet) 125 mcg PO DAILYBB [facility] Stop: 08/01/20 06:29 Last Admin: 07/03/20 06:16 Dose: 125 mcg Documented by: Magnesium Hydroxide (Magnesium Hydroxide Susp 30 Ml Udc) 30 ml PO Q6H PRN PRN Reason: Constipation Stop: 07/31/20 20:00 Metoprolol Succinate (Metoprolol Succ 25mg Ext Rel Tab) 25 mg PO [facility] Stop: 08/01/20 08:59 Last Admin: 07/03/20 09:22 Dose: 25 mg Documented by: Metronidazole (Metronidazole 0.75% Topical Gel 45 Gm Tube) 1 appln TOP BID [facility] Stop: 07/11/20 20:59 Last Admin: 07/03/20 09:23 Dose: 1 appln Documented by: Miscellaneous (*Minocycline*Order Awaiting Action) 1 ea N/A QS [facility] Stop: 08/01/20 00:00 Last Admin: 07/03/20 16:52 Dose: Not Given Documented by: Multivitamins/Minerals (Calcium 600mg + Vit D 400 Iu Tab) 2 [facility] [place] Stop: 08/01/20 08:59 Last Admin: 07/03/20 09:23 Dose: 2 tab Documented by: Naloxone HCl (Naloxone Hcl 0.4 Mg/1 Ml Vial/Carp) 0.1 mg IV UD PRN PRN Reason: Opioid Overdose Stop: 08/01/20 21:50 Ondansetron HCl (Ondansetron Inj 2 Mg/Ml 2 Ml Vial) 4 mg IV Q6H PRN PRN Reason: Nausea Stop: 07/31/20 20:00 Polyethylene Glycol (Polyethylene (Miralax) 17 Gm Pack) 17 gm PO DAILY PRN PRN Reason: Constipation Stop: 07/31/20 20:00 Senna/Docusate Sodium (Docusate Sodium/Senna 50/8.6mg Tab) 2 tab PO HS DENY Stop: 07/31/20 20:59 Last Admin: 07/02/20 22:36 Dose: 2 tab Documented by: Tramadol HCl (Tramadol Hcl 50 Mg Tablet) 50 mg PO Q6H PRN PRN Reason: severe pain Stop: 08/02/20 13:08 (1) Closed hip fracture Encounter type: initial encounter Laterality: right Qualified Code(s): S72.001A - Fracture of unspecified part of neck of right femur, initial encounter for closed fracture (2) COPD with emphysema Emphysema type: unspecified Qualified Code(s): J43.9 - Emphysema, unspecified
[2020-07-03] MEDS: DOCUSATE SODIUM/SENNA 50/8.6MG TAB PO SCH (21:45)
[2020-07-04] MEDS: LEVOTHYROXINE SODIUM 125 MCG TABLET PO SCH (06:20)
[2020-07-04] MEDS: ACETAMINOPHEN 500 MG TAB PO SCH ×3 (06:20→23:32)
[2020-07-04] MEDS: FOLIC ACID 1 MG TAB PO SCH (07:47)
[2020-07-04] MEDS: buPROPion XL 150 MG TABCR PO SCH (07:47)
[2020-07-04] MEDS: metroNIDAZOLE 0.75% TOPICAL GEL 45 GM TUBE TOP SCH ×2 (07:47→23:32)
[2020-07-04] MEDS: CALCIUM 600MG + VIT D 400 IU TAB PO SCH (07:47)
[2020-07-04] MEDS: METOPROLOL SUCC 25MG EXT REL TAB PO SCH (07:47)
[2020-07-04] MEDS: FLUoxetine HCL 20 MG CAP PO SCH (07:47)
[2020-07-04] MEDS: ASPIRIN 81 MG ECTAB PO SCH (07:47)
[2020-07-04] MEDS: ENOXAPARIN INJ 30 MG/0.3 ML SYR SQ SCH (07:48)
[2020-07-04] MEDS: [UNRECOGNIZED DRUG - REMARK] SCH ×2 (09:20→16:07)
--- NOTE | 2020-07-04 11:07 | Orthopedic Progress Note ---
Date of Service July 04, 2020 Assessment & Plan (1) Closed hip fracture: Postop day 2 status post right TFN PT/OT protocols. Weightbearing as tolerated on the right lower extremity. DVT prophylaxis-Lovenox, SCDs, DANTE hose Pain management as written. Continue Optifoam dressing to the left lower extremity abrasion wound. If the Optifoam is too abrasive for her skin, switch to 2 x 2's and Coban or paper tape. DC planning-patient may likely need a residential facility versus rehab prior to returning to [facility]. Admission and Anticipated Discharge Date Admission Date: July 01, 2020 Supervising Physician Co-Signing Physician Notes Patient seen and examined. Patient has difficulty with dementia, and her daughter who accompanied her says it is difficult for her to express when she is in pain. She appears to be resting comfortably, but does state that her hip still hurts. Motor and sensory intact. Subjective Postop day 2 status post right TFN Patient lying in bed awake. States she has some soreness of her right hip in the surgical area but otherwise feels okay. Denies any shortness of breath, chest pain, lightheadedness. Physical Exam Physical Exam: Dressings are clean, dry, and intact. Thigh is soft and nontender. Calves are soft nontender. Neurovascular is intact. Toes are mobile. Left foot wound abrasion that she has had prior to admission is open at this margie e with no dressing on. No purulence noted. Results & Data ([facility]) Vital Signs (Past 12 Hours) Vital Signs Temp Pulse Resp BP Pulse Ox 07/04/20 07:21 36.3 C L 87 18 130/73 90 07/03/20 23:15 36.6 C 76 16 111/59 L 91 (1) Closed hip fracture Encounter type: initial encounter Laterality: right Qualified Code(s): S 72.001A - Fracture of unspecified part of neck of right femur, initial encounter for closed fracture
[2020-07-04] MEDS: traMADol HCL 50 MG TABLET PO PRN (12:24)
--- NOTE | 2020-07-04 17:13 | Hospitalist Progress Note ---
Date of Service July 04, 2020 Assessment & Plan (1) Closed hip fracture: Mechanical fall with subsequent R hip fracture. s/p R hip repair on 07/02 (POD2). Pain is controlled and she is less groggy on scheduled APAP. Has a h/o PE in the past so on Lovenox for prophylaxis. (2) Skin tear of left lower leg without complication: 2/2 to fall-no evidence of active infection (ie-pus). 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 pt has been treated with keflex 500mg bid as outpt x 7 days MRSA in wound culture likely from colonization. Hold on any further abx at this time. (3) History of CVA (cerebrovascular accident): admitted 05/03-05/11, dx with multiple acute embolic cva seen and eval by neuro - recommend asa only, statin intolerant (4) Paroxysmal SVT (supraventricular tachycardia): cont metoprolol per home regimen. (5) CKD (chronic kidney disease) stage 3, GFR 30-59 ml/min: at baseline, cont to monitor periodically (6) COPD with emphysema: stable, No acute exacerbation, 1.5 L of oxygen at bedtime (7) Hypothyroidism: Continue levothyroxine per home regimen. (8) Depression: Continue Prozac and Wellbutrin per home regimen. (9) History of pulmonary embolism: h/o PE a couple of years ago per daughter. Currently on Lovenox post-op. (10) DVT prophylaxis: Lovenox DNR/DNI Dispo-cont hospitalization, Dispo pending PT/OT recommendations. Queta Benson DO [facility] Hospitalist Admission and Anticipated Discharge Date Admission Date: July 01, 2020 Subjective feeling better today pain well controlled on the tylenol/tramadol leg wound without s/sx of infection despite MRSA + pt is a +MRSA carrier worked with PT yesterday afternoon Katie will be dc'd today and she is ok with this. Review of Systems Review of Systems: All systems reviewed & are unremarkable except as noted in Subjective Physical Exam Physical Exam: CONSTITUTIONAL: frail, elderly, vitals as above, generally well-appearing EYES: normal conjunctivae, no scleral icterus ENT: external ear and nose normal, MMM RESPIRATORY: clear to auscultation bilaterally, no crackles, rales or wheezes, normal respiratory effort CARDIOVASCULAR: regular rate and rhythm, S1 and 2 heard without murmurs, gallops or rubs, no JVD, no peripheral edema GASTROINTESTINAL: soft, nontender, nondistended, no guarding. MUSCULOSKELETAL: generalized weakness. SKIN: warm and dry, 3-4 cm Stag II wound to anterior LLE. No drainage or surrounding erythema. Was covered with optifoam and Aquacell. NEUROLOGIC: CN 2-12 grossly intact, no sensory deficit, normal cognition, normal speech, no gross focal deficits. PSYCHIATRIC: alert and cooperative. Answering questions appropriately Results & Data Results & Data ([facility]) Vital Signs (Past 12 Hours) Vital Signs Temp Pulse Resp BP Pulse Ox 07/04/20 15:55 36.7 C 94 H 18 134/72 97 07/04/20 07:21 36.3 C L 87 18 130/73 90 Medications Administered Current Inpatient Medications Acetaminophen (Acetaminophen 500 Mg Tab) 1,000 mg PO Q8H [facility] Stop: 08/02/20 13:59 Last Admin: 07/04/20 13:32 Dose: 1,000 mg Documented by: Al Hydrox/Mg Hydrox/Simethicone (Aluminum/Magnesium Susp 30 Ml Udc) 30 ml PO Q6H PRN PRN Reason: Dyspepsia Stop: 07/31/20 20:00 Albuterol (Albut/Ipratrop 3mg/0.5mg Neb 3 Ml Vial) 3 ml NEB Q2H PRN PRN Reason: Wheezing Stop: 08/02/20 00:35 Aspirin (Aspirin 81 Mg Ectab) 81 mg PO QAM [facility] Stop: 08/01/20 08:59 Last Admin: 07/04/20 07:47 Dose: 81 mg Documented by: Bisacodyl (Bisacodyl 10 Mg Supp) 10 mg [place] DAILY PRN PRN Reason: Constipation Stop: 07/31/20 20:00 Bupropion HCl (Bupropion Xl 150 Mg Tabcr) 150 mg PO QAM [facility] Stop: 08/01/20 08:59 Last Admin: 07/04/20 07:47 Dose: 150 mg Documented by: Enoxaparin Sodium (Enoxaparin Inj 30 Mg/0.3 Ml Syr) 30 mg SQ DAILY [facility] Stop: 08/02/20 08:59 Last Admin: 07/04/20 07:48 Dose: 30 mg Documented by: Fluoxetine HCl (Fluoxetine Hcl 20 Mg Cap) [facility] Stop: 08/01/20 08:59 Last Admin: 07/04/20 07:47 Dose: 40 mg Documented by: Folic Acid (Folic Acid 1 Mg Tab) [facility] Stop: 08/01/20 08:59 Last Admin: 07/04/20 07:47 Dose: 1 mg Documented by: Levothyroxine Sodium (Levothyroxine Sodium 125 Mcg Tablet) 125 mcg PO DAILYBB [facility] Stop: 08/01/20 06:29 Last Admin: 07/04/20 06:20 Dose: 125 mcg Documented by: Magnesium Hydroxide (Magnesium Hydroxide Susp 30 Ml Udc) 30 ml PO Q6H PRN PRN Reason: Constipation Stop: 07/31/20 20:00 Last Admin: 07/04/20 12:26 Dose: 30 ml Documented by: Metoprolol Succinate (Metoprolol Succ 25mg Ext Rel Tab) 25 mg PO [facility] Stop: 08/01/20 08:59 Last Admin: 07/04/20 07:47 Dose: 25 mg Documented by: Metronidazole (Metronidazole 0.75% Topical Gel 45 Gm Tube) 1 appln TOP BID [facility] Stop: 07/11/20 20:59 Last Admin: 07/04/20 07:47 Dose: 1 appln Documented by: Miscellaneous (*Minocycline*Order Awaiting Action) 1 ea N/A QS [facility] Stop: 08/01/20 00:00 Last Admin: 07/04/20 16:07 Dose: Not Given Documented by: Multivitamins/Minerals (Calcium 600mg + Vit D 400 Iu Tab) 2 tab PO [facility] Stop: 08/01/20 08:59 Last Admin: 07/04/20 07:47 Dose: 2 tab Documented by: Naloxone HCl (Naloxone Hcl 0.4 Mg/1 Ml Vial/Carp) 0.1 mg IV UD PRN PRN Reason: Opioid Overdose Stop: 08/01/20 21:50 Ondansetron HCl (Ondansetron Inj 2 Mg/Ml 2 Ml Vial) 4 mg IV Q6H PRN PRN Reason: Nausea Stop: 07/31/20 20:00 Polyethylene Glycol (Polyethylene (Miralax) 17 Gm Pack) 17 gm PO DAILY PRN PRN Reason: Constipation Stop: 07/31/20 20:00 Senna/Docusate Sodium (Docusate Sodium/Senna 50/8.6mg Tab) 2 tab PO HS DENY Stop: 07/31/20 20:59 Last Admin: 07/03/20 21:45 Dose: 2 tab Documented by: Tramadol HCl (Tramadol Hcl 50 Mg Tablet) 50 mg PO Q6H PRN PRN Reason: severe pain Stop: 08/02/20 13:08 Last Admin: 07/04/20 12:24 Dose: 50 mg Documented by: (1) Closed hip fracture Encounter type: initial encounter Laterality: right Qualified Code(s): S72.001A - Fracture of unspecified part of neck of right femur, initial encounter for closed fracture (2) COPD with emphysema Emphysema type: unspecified Qualified Code(s): J43.9 - Emphysema, unspecified
[2020-07-04] MEDS: DOCUSATE SODIUM/SENNA 50/8.6MG TAB PO SCH (23:31)
[2020-07-04] MEDS ORDERED: KETOROLAC TROMETHAMINE 15 MG/ML VIAL IV ONE (23:58)
[2020-07-04] MEDS ORDERED: MoRPHine SULFATE 2 MG/ML CARP IV PRN (23:58)
--- NOTE | 2020-07-05 00:20 | Communication Note ---
Date of Service: July 05, 2020 Made aware by RN of sudden onset right hip pain and popping sound appreciated during bedside care by staff. AP Right hip pain Recent surgery Requested RN to contact orthopedic doctor director of public relations. Analgesia Complete bedrest, n.p.o., hold Lovenox until patient evaluated by orthopedics. Text document was generated using [employer] voice recognition software. It may contain grammatical or spelling errors. Kindly contact undersigned for clarification of any documentation item in question.
[2020-07-05] MEDS: ACETAMINOPHEN 500 MG TAB PO SCH (06:22)
[2020-07-05] MEDS: LEVOTHYROXINE SODIUM 125 MCG TABLET PO SCH (06:22)
[2020-07-05] MEDS: traMADol HCL 50 MG TABLET PO PRN (06:31)
[2020-07-05] MEDS: [UNRECOGNIZED DRUG - REMARK] SCH ×3 (07:08→15:33)
--- NOTE | 2020-07-05 08:14 | Orthopedic Progress Note ---
Date of Service July 05, 2020 Assessment & Plan (1) Closed hip fracture: Postop day 3 status post right TFN X-rays ordered of her right hip. New x-rays show widening of the fracture at the intertrochanteric interval compared to postoperative films. No further surgery needed at this time. We will change her weightbearing status to toe- touch weightbearing and continue PT and OT. DVT prophylaxis-Lovenox, SCDs, DANTE hose Pain management as written. Continue Optifoam dressing to the left lower extremity abrasion wound. If the Optifoam is too abrasive for her skin, switch to 2 x 2's and Coban or paper tape. DC planning-patient may likely need a correction facility versus rehab prior to returning to [facility]. Admission and Anticipated Discharge Date Admission Date: July 01, 2020 Supervising Physician Co-Signing Physician Notes She is currently resting comfortably. She was asleep, but arousable. She denies pain in her right hip. Nursing staff called me overnight last night and informed me that one of the nurses aides "pushed really hard on her [operative] hip, and felt a pop" while they were moving her. X-rays this morning show increased displacement of the intertrochanteric fracture compared to intraoperative x-rays. The implants still look stable. I do not see an indication for revision surgery at this point. Stay toe-touch weightbearing on her right hip. Subjective Postop day 3 status post Right TFN Patient currently sleeping but arousable. Somewhat somnolent and falls back to sleep easily. Denies pain in the right hip at this time. Appears comfortable. Discussed with on-call physician. Apparently while moving the patient last night, the nursing staff heard a popping sound on the operative leg. Currently the patient is appearing comfortable. Physical Exam Physical Exam: Dressings C/D/I. Thigh soft. Mild ecchymosis noted around distal dressing area. No erythema. Calves appear soft,NT. Moving toes with stimulation on feet. Results & Data ([facility]) Vital Signs (Past 12 Hours) Vital Signs Temp Pulse Resp BP Pulse Ox 07/05/20 06:54 36.4 C L 80 18 131/71 95 07/04/20 23:11 36.7 C 89 16 132/83 92 (1) Closed hip fracture Encounter type: initial encounter Laterality: right Qualified Code(s): S72.001A - Fracture of unspecified part of neck of right femur, initial encounter for closed fracture
--- NOTE | 2020-07-05 09:10 | XRay Report ---
XR hip RT 2V w pelvis CLINICAL HISTORY: Nursing noted pop moving patient; s/p hip fx nail COMPARISON: CT of the right hip and right femur radiographs July 01, 2020. Fluoroscopic images of the right hip July 02, 2020. FINDINGS: Postoperative findings consistent with internal fixation of the proximal right femoral fra cture noted with trochanteric nail are noted. Intertrochanteric fracture with subtrochanteric extensi on is noted. A displaced component extending through the greater trochanter into the subtrochanteric portion is noted. Fracture displacement has increased. Displacement of the lesser trochanter is uncha nged. The hardware is intact. IMPRESSION: Interval increase in distraction of the intertrochanteric fracture with subtrochanteric e xtension since fluoroscopic images of July 02, 2020. Right trochanteric nail in place. Hardware in tact. ACT 112: Negative or not required by law. Electronically signed by: Yevgeniy Murillo M.D. 07/05/2020 9:09 AM
[2020-07-05] MEDS: metroNIDAZOLE 0.75% TOPICAL GEL 45 GM TUBE TOP SCH ×2 (10:00→21:22)
[2020-07-05] MEDS: buPROPion XL 150 MG TABCR PO SCH (10:00)
[2020-07-05] MEDS: METOPROLOL SUCC 25MG EXT REL TAB PO SCH (10:00)
[2020-07-05] MEDS: CALCIUM 600MG + VIT D 400 IU TAB PO SCH (10:00)
[2020-07-05] MEDS: ASPIRIN 81 MG ECTAB PO SCH (10:00)
[2020-07-05] MEDS: FOLIC ACID 1 MG TAB PO SCH (10:00)
[2020-07-05] MEDS: FLUoxetine HCL 20 MG CAP PO SCH (10:00)
--- NOTE | 2020-07-05 17:08 | Hospitalist Progress Note ---
Date of Service July 05, 2020 Assessment & Plan (1) Closed hip fracture: Mechanical fall with subsequent R hip fracture. s/p R hip repair on 07/02. Pop heard by staff overnight and repeat xrays show some gapping at the surgical site. Activity changed to toe touch weight bearing on the right now, and no further revision surgery warranted at this time. Will continue to control pain with Tylenol. (2) Skin tear of left lower leg without complication: 2/2 to fall-no evidence of active infection (ie-pus). 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 pt has been treated with keflex 500mg bid as outpt x 7 days MRSA in wound culture likely from colonization. Hold on any further abx at this time. (3) History of CVA (cerebrovascular accident): admitted 05/03-05/11, dx with multiple acute embolic cva seen and eval by neuro - recommend asa only, statin intolerant (4) Paroxysmal SVT (supraventricular tachycardia): cont metoprolol per home regimen. (5) CKD (chronic kidney disease) stage 3, GFR 30-59 ml/min: at baseline, cont to monitor periodically (6) COPD with emphysema: stable, No acute exacerbation, 1.5 L of oxygen at bedtime (7) Hypothyroidism: Continue levothyroxine per home regimen. (8) Depression: Continue Prozac and Wellbutrin per home regimen. (9) History of pulmonary embolism: h/o PE a couple of years ago per daughter. Currently on Lovenox post-op. (10) DVT prophylaxis: Lovenox DNR/DNI Dispo-cont hospitalization, Dispo pending PT/OT recommendations. Queta Benson DO [facility] Hospitalist Admission and Anticipated Discharge Date Admission Date: July 01, 2020 Subjective doing well today pop heard in hip overnight ortho re-evaluated her this morning toe touch weight bearing no further surgery planned. Review of Systems Review of Systems: All systems reviewed & are unremarkable except as noted in Subjective Physical Exam Physical Exam: CONSTITUTIONAL: frail, elderly, vitals as above, generally well-appearing EYES: normal conjunctivae, no scleral icterus ENT: external ear and nose normal, MMM RESPIRATORY: clear to auscultation bilaterally, no crackles, rales or wheezes, normal respiratory effort CARDIOVASCULAR: regular rate and rhythm, S1 and 2 heard without murmurs, gallops or rubs, no JVD, no peripheral edema GASTROINTESTINAL: soft, nontender, nondistended, no guarding. MUSCULOSKELETAL: generalized weakness. SKIN: warm and dry, 3-4 cm Stag II wound to anterior LLE. No drainage or surrounding erythema. Was covered with optifoam and Aquacell. NEUROLOGIC: CN 2-12 grossly intact, no sensory deficit, normal cognition, normal speech, no gross focal deficits. PSYCHIATRIC: alert and cooperative. Answering questions appropriately Results & Data Results & Data ([facility]) Vital Signs (Past 12 Hours) Vital Signs Temp Pulse Resp BP BP Pulse Ox 07/05/20 15:07 36.5 C 90 15 165/88 H 100 07/05/20 10:00 90 18 152/80 H 98 07/05/20 06:54 36.4 C L 80 18 131/71 95 Medications Administered Current Inpatient Medications Acetaminophen (Acetaminophen 500 Mg Tab) 1,000 mg PO Q8H PRN PRN Reason: pain/fever Stop: 08/02/20 13:59 Al Hydrox/Mg Hydrox/Simethicone (Aluminum/Magnesium Susp 30 Ml Udc) 30 ml PO Q6H PRN PRN Reason: Dyspepsia Stop: 07/31/20 20:00 Albuterol (Albut/Ipratrop 3mg/0.5mg Neb 3 Ml Vial) 3 ml NEB Q2H PRN PRN Reason: Wheezing Stop: 08/02/20 00:35 Aspirin (Aspirin 81 Mg Ectab) [facility] Stop: 08/01/20 08:59 Last Admin: 07/05/20 10:00 Dose: Not Given Documented by: Bisacodyl (Bisacodyl 10 Mg Supp) 10 mg DC DAILY PRN PRN Reason: Constipation Stop: 07/31/20 20:00 Bupropion HCl (Bupropion Xl 150 Mg Tabcr) 150 mg PO QAM [facility] Stop: 08/01/20 08:59 Last Admin: 07/05/20 10:00 Dose: Not Given Documented by: Enoxaparin Sodium (Enoxaparin Inj 30 Mg/0.3 Ml Syr) 30 mg SQ DAILY [facility] Stop: 08/02/20 08:59 Last Admin: 07/04/20 07:48 Dose: 30 mg Documented by: Fluoxetine HCl (Fluoxetine Hcl 20 Mg Cap) 40 mg PO QAM [facility] Stop: 08/01/20 08:59 Last Admin: 07/05/20 10:00 Dose: Not Given Documented by: Folic Acid (Folic Acid 1 Mg Tab) 1 mg PO QAM [facility] Stop: 08/01/20 08:59 Last Admin: 07/05/20 10:00 Dose: Not Given Documented by: Levothyroxine Sodium (Levothyroxine Sodium 125 Mcg Tablet) 125 mcg PO DAILYBB [facility] Stop: 08/01/20 06:29 Last Admin: 07/05/20 06:22 Dose: 125 mcg Documented by: Magnesium Hydroxide (Magnesium Hydroxide Susp 30 Ml Udc) 30 ml PO Q6H PRN PRN Reason: Constipation Stop: 07/31/20 20:00 Last Admin: 07/04/20 12:26 Dose: 30 ml Documented by: Metoprolol Succinate (Metoprolol Succ 25mg Ext Rel Tab) 25 [facility] Stop: 08/01/20 08:59 Last Admin: 07/05/20 10:00 Dose: Not Given Documented by: Metronidazole (Metronidazole 0.75% Topical Gel 45 Gm Tube) 1 appln TOP BID [facility] Stop: 07/11/20 20:59 Last Admin: 07/05/20 10:00 Dose: Not Given Documented by: Miscellaneous (*Minocycline*Order Awaiting Action) 1 ea N/A QS [facility] Stop: 08/01/20 00:00 Last Admin: 07/05/20 15:33 Dose: Not Given Documented by: Morphine Sulfate (Morphine Sulfate 2 Mg/Ml Carp) 2 mg IV Q3H PRN PRN Reason: Pain Stop: 07/18/20 23:57 Multivitamins/Minerals (Calcium 600mg + Vit D 400 Iu Tab) 2 tab [facility] Stop: 08/01/20 08:59 Last Admin: 07/05/20 10:00 Dose: Not Given Documented by: Naloxone HCl (Naloxone Hcl 0.4 Mg/1 Ml Vial/Carp) 0.1 mg IV UD PRN PRN Reason: Opioid Overdose Stop: 08/01/20 21:50 Ondansetron HCl (Ondansetron Inj 2 Mg/Ml 2 Ml Vial) 4 mg IV Q6H PRN PRN Reason: Nausea Stop: 07/31/20 20:00 Polyethylene Glycol (Polyethylene (Miralax) 17 Gm Pack) 17 gm PO DAILY PRN PRN Reason: Constipation Stop: 07/31/20 20:00 Senna/Docusate Sodium (Docusate Sodium/Senna 50/8.6mg Tab) 2 tab PO HS DENY Stop: 07/31/20 20:59 Last Admin: 07/04/20 23:31 Dose: 2 tab Documented by: Tramadol HCl (Tramadol Hcl 50 Mg Tablet) 50 mg PO Q6H PRN PRN Reason: severe pain Stop: 08/02/20 13:08 Last Admin: 07/05/20 06:31 Dose: 50 mg Documented by: (1) Closed hip fracture Encounter type: initial encounter Laterality: right Qualified Code(s): S72.001A - Fracture of unspecified part of neck of right femur, initial encounter for closed fracture (2) COPD with emphysema Emphysema type: unspecified Qualified Code(s): J43.9 - Emphysema, unspecified
[2020-07-05] MEDS ORDERED: traMADol HCL 50 MG TABLET PO PRN (18:56)
[2020-07-05] MEDS: DOCUSATE SODIUM/SENNA 50/8.6MG TAB PO SCH (21:22)
[2020-07-06] MEDS: [UNRECOGNIZED DRUG - REMARK] SCH ×3 (00:46→16:34)
[2020-07-06] MEDS: ACETAMINOPHEN 500 MG TAB PO PRN ×2 (02:33→10:36)
[2020-07-06] MEDS: LEVOTHYROXINE SODIUM 125 MCG TABLET PO SCH (06:19)
[2020-07-06] MEDS: CALCIUM 600MG + VIT D 400 IU TAB PO SCH (08:27)
[2020-07-06] MEDS: ASPIRIN 81 MG ECTAB PO SCH (08:27)
[2020-07-06] MEDS: metroNIDAZOLE 0.75% TOPICAL GEL 45 GM TUBE TOP SCH (08:27)
[2020-07-06] MEDS: FOLIC ACID 1 MG TAB PO SCH (08:27)
[2020-07-06] MEDS: buPROPion XL 150 MG TABCR PO SCH (08:28)
[2020-07-06] MEDS: METOPROLOL SUCC 25MG EXT REL TAB PO SCH (08:28)
[2020-07-06] MEDS: FLUoxetine HCL 20 MG CAP PO SCH (08:28)
--- NOTE | 2020-07-06 15:54 | Discharge Summary ---
Date of Service July 06, 2020 Admission HPI Per Admitting Provider This is a very pleasant 89-year-old female who has significant past medical history of emphysema, HTN, HLD, CKD stage III, depression with anxiety, hypothyroidism, history of SVT, osteoporosis, recurrent falls, history of PE, history of embolic CVA, cognitive decline who presents to ED after sustaining a mechanical fall prior to arrival. Of significance patient was recently hospitalized 05/03-05/11 secondary to multiple acute embolic CVAs. She was seen and evaluated by neurology and started on ASA. [place] not a good candidate for oral anticoagulation. She is statin intolerant therefore this was not started. She was seen and evaluated by palliative care due to frequent falls. She was subsequently transitioned to [facility] where daughter feels she has been doing fairly well physically and cognitively. She was having a good day today when she was walking with her walker, "and sometimes I just walk too fast." She got ahead of herself and sustained a mechanical fall on her right side. The fall was witnessed, she did not lose her head or lose consciousness. Currently she complains of right hip pain. She denies any recent fever, chills, sweats, lightheadedness, dizziness, chest pain, shortness of breath, cough, nausea, vomiting, abdominal pain. He does currently have Wilson catheter in place. At assisted-living facility she is fairly mobile with the use of her walker. When walking the length of the hallway she does not exhibit any chest pain or shortness of breath. She wishes to return to this mobile state again. Daughter is at bedside. Patient states she has been more depressed lately and daughter confirms, "she just said this prior to her fall." She denies any SI or HI. Daughter also elicits frequent falls. She sustained a fall approximately 1 week ago causing a skin tear to the left pretibial area. She is currently on oral Keflex for this. In ED she remained hemodynamically stable. Hip CT revealed acute displaced avulsion fracture of the lesser trochanteric, subtle fracture line involves the posterior cortex of the femur at the level of the lesser trochanter. Also soft tissue contusion lateral to the right hip with probable tear of the myotendinous junction iliopsoas. ER provider spoke with on-call orthopedic Dr. Kessler who recommended admission and likely surgical intervention in a.m. Her CBC and CMP were generally unremarkable. Admission Exam Per Admitting Provider Constitutional: Elderly, female, WD/WN, vitals as above, NAD, sitting up in bed, pleasant, conversing easily Head: Normocephalic, Atraumatic Eyes: PERRL, conjunctivae normal, anicteric sclerae ENMT: external ear and nose normal, oropharynx normal Neck: trachea midline, no thyromegaly normal visual inspection Respiratory: normal respiratory effort, lungs clear to auscultation, no wheeze, rales, rhonchi. Normal insp/exp effort, no accessory muscle use Cardiovascular: RRR, 1/6 CULLEN noted cardiac apex, no edema but ashen discoloration to pretibial surface. vessels: no JVD or carotid bruit Chest: normal inspection of chest Abdomen: normal bowel sounds, soft, nontender, no hepatosplenomegaly Musculoskeletal: no cyanosis or clubbing, active range of motion to bilateral upper extremities, lower extremity strength and range of motion not tested secondary to fracture Skin: Left pretibial skin tear/ulceration, warm and dry normal turgor Neurologic: PERRL, EOMI, accommodation nl, no face palsy, no dysarthria CN's II-XI intact bilaterally and moves all extremities except RLE not tested Psychiatric: A+Ox3, euthymic affect Lymphatic: no cervical or axillary lymphadenopathy : Wilson catheter in place draining clear yellow urine Principal Diagnosis closed right hip fracture s/p R hip repair on 07/02 skin tear on left lower leg MRSA carrier h/o pulmonary embolus Discharge Exam CONSTITUTIONAL: frail, elderly, vitals as above, generally well-appearing EYES: normal conjunctivae, no scleral icterus ENT: external ear and nose normal, MMM RESPIRATORY: clear to auscultation bilaterally, no crackles, rales or wheezes, normal respiratory effort CARDIOVASCULAR: regular rate and rhythm, S1 and 2 heard without murmurs, gallops or rubs, no JVD, no peripheral edema GASTROINTESTINAL: soft, nontender, nondistended, no guarding. MUSCULOSKELETAL: generalized weakness. SKIN: warm and dry, 3-4 cm Stag II wound to anterior LLE. No drainage or surrounding erythema. Was covered with optifoam and Aquacell. NEUROLOGIC: CN 2-12 grossly intact, no sensory deficit, normal cognition, normal speech, no gross focal deficits. PSYCHIATRIC: alert and cooperative. Answering questions appropriately Discharge Data Allergies Allergy/AdvReac Type Severity Reaction Status Date / Time [place] [employer] Allergy Verified 07/02/20 18:36 orange Allergy Verified 07/03/20 20:48 peanut Allergy Verified 07/02/20 18:34 strawberry Allergy Verified 07/02/20 18:35 zolpidem AdvReac Intermediate psychotic Verified 07/01/20 15:34 response Consultations 07/01/20 17:05 ED Decision to Admit Stat 07/01/20 20:01 Consult Anesthesiology Routine Consult Case Management - Discharge Planning Routine Consult Orthopedic Surgery Routine 07/02/20 21:51 Consult Case Management - Discharge Planning Routine 07/03/20 15:19 Consult General Surgery Routine 07/05/20 18:54 Consult Palliative Care Routine Procedures Performed Operation Date: 07/02/20 12:55 Actual Procedures p Trochanteric Nail Right(Right) - Ramirez Kessler, Ordered Studies 07/01/20 14:56 CT cervical spine wo con Stat CT head/brain wo con Stat 07/01/20 15:16 CT hip RT wo con Stat 07/02/20 16:30 FL fluoroscopy <1hr Routine FL hip RT 2-3V Routine Hospital Course (1) Closed hip fracture: (2) Post-operative state: (3) MRSA carrier: (4) Skin tear of left lower leg without complication: The patient is a 89-year-old female who suffered a mechanical fall and subsequent acute fracture of her right hip. She was admitted to the hospitalist service and started on pain control and other supportive care efforts. Orthopedics was consulted and recommended surgery which was performed the following day. On 1021 she underwent a trochanteric nailing on the right by Dr. Ramirez Kessler. She subsequently recovered without complications. She does have a history of dementia which complicated her ability to ask for pain medications. She subsequently became very somnolent at one point after taking Tylenol and tramadol together, however, recovered with no issue. As a result of this in the middle of the Covid pandemic, her daughter wanted to take her back to [facility] in lieu of of a [facility] facility and requested a palliative care consult consult in consideration of hospice. However prior to departure the nursing staff heard a pop in her right hip and on reevaluation by orthopedics repeat x-rays showed widening of the fracture at the intertrochanteric interval compared to postoperative films. Although no further surgery was needed at that time they did change her weightbearing status to toe- touch weightbearing for 6 weeks and recommended continue PT and OT. She was therefore discharged to [facility] to embark on a rehab plan and follow the activity restriction instructions more strictly then would likely be followed at a personal [place] [facility] care facility. This would give her the best chance of recovery and long-term success at improved quality of life. Both the patient and her daughter were on board with this plan. At time of discharge she was hemodynamically stable and afebrile and tolerating p.o. She was mentating at baseline and was sent to [facility] in stable condition with close primary care follow-up recommended. She was instructed verbally and on paper to continue with Lovenox for 30 days with her history of blood clot as a form of chemoprophylaxis to prevent postoperative complications of DVT. She and her daughter verbalized understanding with intent to comply. Of note she did present to the hospital with a small skin tear on her left lower extremity that did not appear infected. She had completed recently a course of Keflex for this. This was swabbed for a culture which returned positive for MRSA however, the patient was a known MRSA carrier and this wound was not further felt to need treatment. Per the wound care nurse who evaluated her in the hospital she should continue with Aquacel and OPTi foam changes every 3 days or as needed for drainage. The patient also has a small hematoma on her right upper extremity and general surgery was consulted for questionable need for evacuation of this hematoma. Warm compresses were advised. Total Time Total Time Spent Total Time Spent (In Minutes): 60 Total Time Includes: Examination of the Patient, Discharge Planning, Medication Reconciliation and Communication With Other Providers Discharge Plan Discharge Items Patient Disposition: Transfer Inpatient Rehab Fac Reason For Visit: HIP FRACTURE Discharge Diagnosis: closed right hip fracture s/p R hip repair on 07/02 skin tear on left lower leg MRSA carrier h/o pulmonary embolus Condition on Discharge: Good Activity: Resume your previous activity Weightbearing: Right weightbearing Weightbearing Comment: As tolerated with walker Non-emergency contact: Surgeon Call non-emergency contact if: your pain is not controlled, your temperature is above 101.5, your wound has increased redness and your wound has increased drainage Follow-up/Referrals: [facility] [Primary Care Provider] - Diet: Heart Healthy Diet Texture: Dental soft (bite-sized) Addtl Attending Provider Instructions: Please take all medications as instructed on discharge list below. You are being given tramadol to help with additional severe pain as needed, however, most of your post-operative pain should be well-managed with Tylenol at this point. Please follow all post-operative activity and would care instructions and followup when instructed with [facility]. Please ensure to take your Lovenox injection daily for 30 days since the date of surgery to prevent blood clot formation. It is recommended that you follow-up with your primary care physician within 1-2 weeks to ensure you are still doing well after discharge from the hospital. It was a pleasure taking care of you! Please call if you have any questions or problems. You can reach a [facility] [address] hospitalist on duty at [facility] 24 hours a day by calling [phone]. Take care of yourself. Queta Benson, [facility] [address] Hospitalist Addtl Bulb Packer Provider Instructions: [facility] DISCHARGE INSTRUCTIONS: HIP FRACTURE SELF CARE INSTRUCTIONS: A. You are to ambulate with a walker or crutches for approximately 6 weeks. B. You are TOE TOUCH WEIGHT BEARING on your operative lower extremity for at least 6 weeks. C. Wear low heeled shoes with non-slip soles D. Be sure that your floors are free of things that could trip you throw rugs, electrical cords, and small objects. Avoid wet and waxed floors, especially with crutches/walker/cane. E. Try to walk several times a day with rest periods between. F. You may shower 48 hours after surgery and get the incision area wet, but DO NOT soak or submerge incision area in water. (No baths, swimming pools, hot tubs) G. Change your dressing daily for the first week. If the wound remains clean and dry, dressing changes every other day until seen in the office. H. Do NOT apply soap or any ointment/lotions directly over incision. I. You may use ice as needed to operative site. SPECIAL CARE INSTRUCTIONS: VERY IMPORTANT TO READ AND REVIEW A. You may be at risk for phlebitis or blood clots. a. Wear surgical stockings (DANTE hose) for 2 weeks after surgery to improve circulation and reduce swelling. b. Take LOVENOX 30mg SQ daily for 4 weeks or as directed. This is your blood thinner. B. There are a few signs you need to watch for after you are home. Call [facility] at [phone] if you experience any of the following: a. If you have a temperature of 101 degrees or higher. b. Sudden increase in pain in your hip not relieved by rest or pain medication. c. Any fluid or drainage from the incision; redness of the incision. d. Shortness of breath or chest pain. C. Call your physician if: a. Temperature is greater than 101 degrees (F). b. Pain is not relieved by prescribed pain medications. c. Increase drainage or redness from incision. d. Unanswered questions or concerns. D. Pain Medication: a. You will be prescribed pain medication upon discharge that should last till your first post-operative appointment. b. If you experience nausea and/or skin rash, discontinue this medication and contact our office for an alternative medication. c. Caution- narcotic pain medication can cause constipation. FOLLOW UP VISIT: Please call [facility] at [phone] to schedule a follow up appointment 10-14 days from the date of your surgery date with Dr. Kessler. Pending Studies at Discharge: No Stand-Alone Forms: My [facility] Skilled Items Patient informed of condition?: Yes DNR: Yes Discharge Level of Care: Acute rehab Communicable Disease: No Discharge Prognosis: Stable Lines: None Urinary Catheter: No Medications and DC Order Prescriptions: New enoxaparin [Lovenox] 30 mg/0.3 mL Syringe 30 mg subcut DAILY Qty: 9 RF: 0 tramadol 50 mg Tablet 25 mg PO Q4H PRN (Reason: pain) Qty: 20 RF: 0 Continued aspirin 81 mg Tablet,Delayed Release (Dr/Ec) 81 mg PO QAM Qty: 90 RF: 0 folic acid 1 mg Tablet 1 mg PO QAM Qty: 30 RF: 1 metronidazole 0.75 % gel 1 applic TOPICAL BID Qty: 45 RF: 0 levothyroxine 125 mcg Tablet 125 mcg PO QAM RF: 0 minocycline 100 mg capsule 100 mg PO QAM RF: 0 metoprolol succinate 25 mg tablet extended release 24 hr 25 mg PO QAM RF: 0 fluoxetine 20 mg capsule 40 mg PO QAM RF: 0 bupropion HCl 150 mg tablet extended release 24 hr 150 mg PO QAM RF: 0 calcium carbonate-vitamin D3 [Calcium 600 + D(3)] 600 mg(1,500mg) -400 unit tablet 2 tab PO QAM RF: 0 acetaminophen [Tylenol] 325 mg Tablet 650 mg PO Q6H PRN (Reason: Pain) RF: 0 Discontinued cephalexin 500 mg capsule 500 mg PO BID RF: 0 Discharge Orders: Discharge Order (Routine); Ordered 07/06/20 Ordered By: Queta Benson Admission Data Admit Date/Time: 07/01/20 18:06 Attending Provider: Queta Benson Admit Provider: Chance Meza Primary Care Provider: [facility] Other Providers: [facility] ; Chance Meza ; Ryan Hardy ; Ramirez Kessler ; Stiven Rose Other Interventions: Discharge Summary Assessment (RN) Last Done: 07/06/20 16:40
== END 2020-07-06 18:00 | DRG 481 ==
LOC: ED 13:09 → SUATTDRO 18:06 → 3W 18:06